=== PATIENT | female | born 1955 | race African-American/Black ===

== ENCOUNTER 2018-10-25 15:31 | Inpatient (IN) | payer MEDICARE, MEDICAID ==
--- NOTE | 2018-10-25 16:16 | ED Physician Chart ---
ED Chief Complaint/HPI - Patient Information Date Seen:: 10/25/18 Time Seen:: 15:45 Chief Complaint:: Fever History of Present Illness:: onset x 3 days of fever, cough, congestion, and dyspnea; no report of trauma, H/ As, S/T, neck pain, C/P, Abd. Pain, A/N/V/D/C, chills, or urinary s/s Allergies:: Allergies Allergy/AdvReac Type Severity Reaction Status Date / Time morphine Allergy Verified 09/27/18 15:58 tramadol Allergy Verified 09/27/18 15:58 Vitals:: Vital Signs - 8 hr 10/25/18 15:45 Temp 98.8 F HR 95 RR 28 BP 137/69 O2 Sat % 96 Historian:: Patient, EMS Review:: Nurse's Note Reviewed, Old Chart Reviewed, EMS run form Reviewed ED Review of Systems - Review of Systems General/Constitutional: Fever, No chills, No weight loss, No weakness, No diaphoresis, No edema, No loss of appetite Skin: No skin lesions, No rash, No bruising Head: No headache, No light-headedness Eyes: No loss of vision, No pain, No diplopia ENT: No earache, Nasal drainage, No sore throat, No tinnitus Neck: No neck pain, No swelling, No thyromegaly, No stiffness, No mass noted Cardio Vascular: No chest pain, No palpitations, No PND, No orthopnea, No edema Pulmonary: SOB, Cough, No sputum, Wheezing GI: No nausea, No vomiting, No diarrhea, No pain, No melena, No hematochezia, No constipation, No hematemesis G/U: No dysuria, No frequency, No hematuria, No nacturia French Binder: No vaginal discharge, No abnormal vaginal bleed, No contraction Musculoskeletal: No bone or joint pain, No back pain, No muscle pain Endocrine: No polyuria, No polydipsia Psychiatric: No prior psych history, No depression, No anxiety, No suicidal ideation, No homicidal ideation, No auditory hallucination, No visual hallucination Hematopoietic: No bruising, No lymphadenopathy Allergic/Immuno: No urticaria, No angioedema Neurological: No syncope, No focal symptoms, No weakness, No paresthesia, No headache, No seizure, No dizziness, No confusion, No vertigo ED Past Medical History - Past Medical History Obtainable: Yes Past Medical History: HTN, DM, CAD, CHF, Asthma/COPD, Dyslipidemia, ESRD Family History: HTN Social History: Non Smoker, No Alcohol, No Drug Use, Single, Care Facility Surgical History: None Psychiatricy History: None Medication: Reviewed ED Physical Exam - Physical Examination General/Constitutional: Awake, Well-developed, well-nourished, Alert, No distress, GCS 15, Non-toxic appearing, Ambulatory Head: Atraumatic Eyes: Lids, conjuctiva normal, PERRL, EOMI Skin: Nl inspection, No rash, No skin lesions, No ecchymosis, Well hydrated, No lymphadenopathy ENMT: External ears, nose nl, TM canals nl, Nasal exam nl, Lips, teeth, gums nl , Oropharynx nl, Tonsils nl Neck: Nontender, Full ROM w/o pain, No JVD, No nuchal rigidity, No bruit, No mass, No stridor Respiratory: Nl effort/Exclusion Other Respiratory comments:: Lungs: + Rales, Rhonchi, and Wheezes Cardio Vascular: RRR, No murmur, gallop, rubs, NL S1 S2, Carotid/Femoral/Distal pulses equal bilaterally GI: No tenderness/rebounding/guarding, No organomegaly, No hernia, Normal BS's, Nondistended, No mass/bruits, No McBurney tenderness, Rectum exam nl : No CVA tenderness Extremities: No tenderness or effusion, Full ROM, normal strength in all extremities, No edema, Normal digits & nails Neuro/Psych: Alert/oriented, DTR's symmetric, Normal sensory exam, Normal motor strength, Judgement/insight normal, Mood normal, Normal gait, No focal deficits Misc: Normal back, No paraspinal tenderness ED Labs/Radiology/EKG Results - Lab Results Comments:: Reviewed - Radiology Results Comments:: CXR: CM; CHF; + Infiltrate - EKG Interpretations EKG Time:: 16:29 Rate & Rhythm: 95; NSR Comments:: LAE; old ASMI; non-specific st-t changes ED Septic Shock - . Is Septic Shock (SBP<90, OR Lactate>4 mmol\L) present?: No - <6hrs of presentation: Vital Signs: Vital Signs - 8 hr 10/25/18 15:45 Temp 98.8 F HR 95 RR 28 BP 137/69 O2 Sat % 96 ED Reassessment (Disposition) - Reassessment Reassessment Condition:: Improved - Diagnosis Diagnosis:: Dyspnea; Hyperglycemia; DM; ESRD; Anemia; PNA; Sepsis; CHF; elevated D-Dimer; COPD - Aftercare/Follow up Instructions Aftercare/Follow-Up Instructions:: Counseled pt regarding lab results/diagnosis & need follow up, Counseled pt & family regarding lab results/diagnosis & need follow up - Patient Disposition Discharge/Transfer:: Acute Care w/in this hosp Accepting Physician:: Dr. Duque Time Called:: [phone] Time Responded:: 17:30 Admitted to:: Telemetry Spoke to:: Dr. Duque Admitting Medical Physician:: Dr. Duque Condition at Disposition:: Stable, Improved
[2018-10-25 16:25] LABS: HEMATOCRIT 25.5 % (41.0-60); HEMOGLOBIN 8.3 gm/dL (12-16); LYMPHOCYTE ABSOLUTE 0.5 Th/cmm (1.5-3.0); MEAN CELL VOLUME 83.6 fl (81-100); MEAN CORPUSCULAR HEMOGLOBIN 27.4 pg (27.0-31.0); MEAN CORPUSCULAR HGB CONC 32.7 pg (28.0-36.0); MEAN PLATELET VOLUME 7.6 fl; MONOCYTE ABSOLUTE 0.1 Th/cmm (0.3-1.0); NEUTROPHILE ABSOLUTE 8.7 Th/cmm (1.8-8.0); PLATELET COUNT 119 Th/cmm (150-400); RED BLOOD COUNT 3.05 Mil/cmm (3.80-5.10); RED CELL DISTRIBUTION WIDTH 21.8 % (11.5-20.0); WHITE BLOOD COUNT 9.3 Th/cmm (4.8-10.8)
[2018-10-25] MEDS ORDERED: Albuterol/Ipratropium Neb 3 ML AERS HHN ONE ×2 (16:32→17:04)
[2018-10-25 16:40] LABS: INR 1.2 (0.5-1.4); PROTHROMBIN TIME (TEST) 12.4 SECONDS (9.5-11.5)
[2018-10-25 16:42] LABS: ALB/GLOB RATIO 1.4 (1.0-1.8); ALBUMIN 4.1 gm/dL (3.7-5.3); ANION GAP 21.8 (7.0-16.0); BILIRUBIN,TOTAL 0.5 mg/dL (0.3-1.0); CALCIUM SERUM 9.5 mg/dL (8.6-10.3); CARBON DIOXIDE 22.9 mEq/L (21.0-31.0); GFR AFRICAN-AMERICAN 10.3 ml/min (>90); GFR NON AFRICAN-AMERICAN 8.5 ml/min; POTASSIUM SERUM 4.7 mEq/L (3.5-5.1)
[2018-10-25 16:53] LABS: CREATININE - SERUM 5.4 mg/dL (0.6-1.2)
[2018-10-25] MEDS ORDERED: Levofloxacin 500mg/100mL 500 MG/100 ML BAG IV ONE ×2 (17:52→18:16)
[2018-10-25] MEDS ORDERED: INSULIN HUMAN REGULAR 100 UNITS/ML UNIT IV ONE (17:52)
[2018-10-25] MEDS ORDERED: INSULIN HUMAN REGULAR 100 UNITS/ML UNIT ONE (18:16)
[2018-10-25 20:36] VITALS: BP 115/75
[2018-10-25] MEDS: HYDROmorphone 1 mg/mL 1mL Syr IVP PRN (22:01)
[2018-10-25 22:39] LABS: LYMPHOCYTE 7 % (20-50); MONOCYTE 3 % (2-10); NEUTROPHILS 90 % (40-80); PLATELET ESTIMATE ADEQUATE (NORMAL)
[2018-10-26] MEDS: HYDROmorphone 1 mg/mL 1mL Syr IVP PRN ×6 (02:20→21:50)
[2018-10-26 06:18] LABS: HEMOGLOBIN 8.4 gm/dL (12-16); MEAN CELL VOLUME 83.9 fl (81-100); MEAN CORPUSCULAR HGB CONC 32.2 pg (28.0-36.0); MEAN PLATELET VOLUME 7.8 fl; PLATELET COUNT 118 Th/cmm (150-400); RED BLOOD COUNT 3.11 Mil/cmm (3.80-5.10); RED CELL DISTRIBUTION WIDTH 21.8 % (11.5-20.0); WHITE BLOOD COUNT 8.9 Th/cmm (4.8-10.8)
[2018-10-26 06:31] LABS: ANION GAP 23.2 (7.0-16.0); CALCIUM SERUM 9.6 mg/dL (8.6-10.3); CARBON DIOXIDE 23.2 mEq/L (21.0-31.0); GFR AFRICAN-AMERICAN 9.3 ml/min (>90); GFR NON AFRICAN-AMERICAN 7.7 ml/min; POTASSIUM SERUM 4.4 mEq/L (3.5-5.1)
[2018-10-26 06:48] LABS: CREATININE - SERUM 5.9 mg/dL (0.6-1.2)
[2018-10-26 07:25] LABS: BAND NEUTROPHILE 0 % (0-10); EOSINOPHIL 0 % (0-5); LYMPHOCYTE 8 % (20-50); MONOCYTE 9 % (2-10); NEUTROPHILS 83 % (40-80)
[2018-10-26 07:26] LABS: BASOPHIL 0 % (0-3)
[2018-10-26 07:27] LABS: ANISOCYTOSIS 1+
[2018-10-26] MEDS ORDERED: Albuterol/Ipratropium Neb 3 ML AERS HHN PRN ×2 (07:52)
--- NOTE | 2018-10-26 08:30 | Diagnostic Imaging Report ---
Exam: Chest x-ray HISTORY: Chest pain COMPARISON [id number] Findings: Frontal exam of chest reviewed. The study demonstrates left subclavian catheter terminates in superior vena cava. The heart is enlarged. There is evidence of mild congestion. The costophrenic angles are clear. Bony thorax intact. No acute pulmonic infiltrates identified IMPRESSION: Cardiomegaly, mild congestion.
--- NOTE | 2018-10-26 09:44 | Consultation ---
Consult Note - Consult Note Service Date: 10/26/18 Consult Note: PHYSICIAN Consultation Note: Date of Admission: 10/25/18 Purpose of Consultation: Chief Complaint: History of Present Illness: Patient ANDRAE BAEZ was admitted to [facility] Telemetry with RENAL FAILURE, CHF. 63 yo F h/o ESRD 2 HTN nephrosclerosis on HD at [facility] apparently missed last HD session and was admitted to ED for evaluation of chest pain and shortness of breath. States that breathing is improved since admission with inhalers. ROS: + dyspnea, denies fevers, chills, nausea, vomiting, chest pain, abdominal pain, otherwise 14pt ROS negative except noted above Past Medical History: Allergies Allergy/AdvReac Type Severity Reaction Status Date / Time morphine Allergy Verified 09/27/18 15:58 tramadol Allergy Verified 09/27/18 15:58 Vital Signs Temp 98.9 F 10/26/18 07:54 Pulse 93 10/26/18 08:09 Resp 18 10/26/18 08:09 BP 144/76 10/26/18 07:54 Pulse Ox 95 10/26/18 08:09 Intake & Output 10/25/18 10/26/18 10/26/18 18:59 06:59 18:59 Intake Total 100 Balance 100 Weight (lbs) 72.121 kg 72.121 kg Intake: Intake, IV Amount 100 Other: Weight Source Estimated Laboratory Results - last 24 hr 10/25/18 10/25/18 10/25/18 16:20 16:20 16:20 WBC 9.3 RBC 3.05 L Hgb 8.3 L Hct 25.5 L MCV 83.6 MCH 27.4 MCHC Differential 32.7 RDW 21.8 H Plt Count 119 L MPV 7.6 Add Manual Diff YES Band Neutrophils % Neutrophils (Manual) 90 H Lymphocytes 7 L Monocytes 3 Eosinophils Basophils Platelet Estimate ADEQUATE Anisocytosis PT INR PTT (Actin FS) D-Dimer 1450 H Sodium 139 Potassium 4.7 Chloride 99 Carbon Dioxide 22.9 Anion Gap 21.8 H BUN 84 H* Creatinine 5.4 H* Est GFR ( Amer) 10.3 Est GFR (Non-Af Amer) 8.5 BUN/Creatinine Ratio 15.6 Glucose 361 H Whole Bld Lactic Acid Calcium 9.5 Total Bilirubin 0.5 AST 9 L ALT 8 Alkaline Phosphatase 123 H Creatine Kinase 24 L Troponin I B-Natriuretic Peptide 2620.0 H Total Protein 7.0 Albumin 4.1 Globulin 2.9 Albumin/Globulin Ratio 1.4 Triglycerides 57 Cholesterol 134 LDL Cholesterol Direct 39 L HDL Cholesterol 66 10/25/18 10/25/18 10/25/18 16:20 16:20 16:20 WBC RBC Hgb Hct MCV MCH MCHC Differential RDW Plt Count MPV Add Manual Diff Band Neutrophils % Neutrophils (Manual) Lymphocytes Monocytes Eosinophils Basophils Platelet Estimate Anisocytosis PT 12.4 H INR 1.20 PTT (Actin FS) 26.5 D-Dimer Sodium Potassium Chloride Carbon Dioxide Anion Gap BUN Creatinine Est GFR ( Amer) Est GFR (Non-Af Amer) BUN/Creatinine Ratio Glucose Whole Bld Lactic Acid 1.33 Calcium Total Bilirubin AST ALT Alkaline Phosphatase Creatine Kinase Troponin I 0.12 H* B-Natriuretic Peptide Total Protein Albumin Globulin Albumin/Globulin Ratio Triglycerides Cholesterol LDL Cholesterol Direct HDL Cholesterol 10/26/18 10/26/18 05:35 05:35 WBC 8.9 RBC 3.11 L Hgb 8.4 L Hct 26.0 L MCV 83.9 MCH 27.0 MCHC Differential 32.2 RDW 21.8 H Plt Count 118 L MPV 7.8 Add Manual Diff YES Band Neutrophils % 0 Neutrophils (Manual) 83 H Lymphocytes 8 L Monocytes 9 Eosinophils 0 Basophils 0 Platelet Estimate Anisocytosis 1+ PT INR PTT (Actin FS) D-Dimer Sodium 143 Potassium 4.4 Chloride 101 Carbon Dioxide 23.2 Anion Gap 23.2 H BUN 97 H* Creatinine 5.9 H* Est GFR ( Amer) 9.3 Est GFR (Non-Af Amer) 7.7 BUN/Creatinine Ratio 16.4 Glucose 291 H Whole Bld Lactic Acid Calcium 9.6 Total Bilirubin AST ALT Alkaline Phosphatase Creatine Kinase Troponin I B-Natriuretic Peptide Total Protein Albumin Globulin Albumin/Globulin Ratio Triglycerides Cholesterol LDL Cholesterol Direct HDL Cholesterol Home Medication Medication Instructions Recorded Type Acetaminophen [Tylenol] 325 mg PO Q4H PRN tab 10/01/18 Rx Bisacodyl [Dulcolax 10 Mg Supp] 10 mg RC DAILY PRN sup 10/01/18 Rx Carvedilol [Coreg] 25 mg PO BID tab 10/01/18 Rx Docusate Sodium [Colace] 100 mg PO BID cap 10/01/18 Rx Fleet Enema 135 ml RC PRN PRN btl 10/01/18 Rx Guaifenesin DM [Robitussin DM] 10 ml PO Q4HR PRN udc 10/01/18 Rx Ibuprofen [Motrin*] 600 mg PO Q4H PRN tab 10/01/18 Rx Loperamide [Imodium] 2 mg PO Q4HR PRN cap 10/01/18 Rx Losartan Potassium [Cozaar] 50 mg PO BID tab 10/01/18 Rx Magnesium Hydroxide [Milk of 30 ml PO HS PRN udc 10/01/18 Rx Magnesia] amLODIPine Besylate [Norvasc] 5 mg PO BID tab 10/01/18 Rx diphenhydrAMINE [Benadryl] 25 mg GT Q6HR PRN udc 10/01/18 Rx Albuterol/Ipratropium Neb [Duoneb 3 ml HHN Q2HRT PRN 10/25/18 History Neb] Albuterol/Ipratropium Neb [Duoneb 3 ml HHN Q4H PRN 10/25/18 History Neb] Balsam Diana/[place] Oil [Venelex] 1 appl TP Q12H 10/25/18 History Calcium Acetate [Phoslo] 1.334 mg PO TID 10/25/18 History Hydralazine HCl 100 mg PO Q12HR 10/25/18 History Minoxidil 2.5 mg PO BID 10/25/18 History Pantoprazole Sodium 40 mg PO DAILY 10/25/18 History Zolpidem Tartrate [Ambien] 10 mg PO HS PRN 10/25/18 History cloNIDine HCl [Catapres] 0.2 mg PO Q8HR PRN 10/25/18 History metroNIDAZOLE [Flagyl] 500 mg PO BID 10/25/18 History Current Medications Generic Name Dose Route Start Last Admin Trade Name Freq PRN Reason Stop Dose Admin Acetaminophen 325 mg 10/26/18 07:52 Tylenol PO 12/25/18 07:51 Q4H PRN Pain (Mild) Albuterol/Ipratropium 3 ml 10/26/18 07:52 Duoneb Neb N 12/25/18 07:51 Q2HRT PRN Wheezing Albuterol/Ipratropium 3 ml 10/26/18 07:52 Duoneb Neb N 12/25/18 07:51 Q4H PRN Wheezing Amlodipine Besylate 5 mg 10/26/18 09:00 Norvasc PO 12/25/18 08:59 BID HONEY Hydromorphone HCl 1 mg 10/25/18 21:43 10/26/18 06:29 Dilaudid IVP 12/24/18 21:42 1 mg Q4HR PRN Administration MODERATE TO SEVERE PAIN Albumin Human 12.5 gm in 50 mls @ 50 mls/hr 10/27/18 00:00 Albutein 25% IV 10/27/18 00:59 NOW ONE Review of Systems: A 12 point ROS was reviewed with the pertinent positive and negatives noted in the HPI. Social History Smoking Status Unknown if ever smoked Family Medical History Family Medical History Start: 10/25/18 19: 53 Freq: ONCE Status: Active Protocol: Document 10/25/18 22:16 [email or web address] (Rec: 10/25/18 22:17 [id number] ) Family Medical History Mother History Unknown Yes Physical Exam: General: WDWN woman, NAD, alert and oriented Cardio: regular rate, nl rhythm, no m/r/g. chest wall kat noted Respiratory: clear bilaterally Extremities: 1+ edema, old nonfunctional AVF Assessment: ESRD on HD - HD today for clearance and volume removal. May need additional session in AM HTN - BP controlled on HD Anemia 2 ESRD - H&H below range, no indication for transfusion. Continue ANTHONY as inpatient CHF - volume overloaded, UF today w/ HD Plan: As per above Signed, Usman Garcia [id number]
--- NOTE | 2018-10-26 15:38 | History & Physical ---
ADMIT DATE: 10/26/2018 DICTATING FOR: Dr. Duque. CHIEF COMPLAINT: Fever. HISTORY OF PRESENT ILLNESS: This is a 63-year-old female who is a [place] [facility] resident of [facility], admitted to the Telemetry Unit due to a 3-day history of off and on fever associated with cough and congestion. PAST MEDICAL HISTORY: Hypertension, diabetes, CAD, CHF, asthma, ESRD, on hemodialysis. FAMILY HISTORY: Noncontributory. SOCIAL HISTORY: The patient is a [place] [facility] resident. PAST SURGICAL HISTORY: On dialysis shunt. MEDICATIONS: See medication list. REVIEW OF SYSTEMS: GENERAL: Denies any fevers or chills. CARDIOVASCULAR: Denies chest pain. RESPIRATORY: Denies shortness of breath. GASTROINTESTINAL: Denies nausea, vomiting, abdominal pain. GENITOURINARY: Denies increased frequency. NEUROLOGIC: No headaches, seizures or syncope. All systems reviewed and are negative. PHYSICAL EXAMINATION: GENERAL: The patient is well developed, well nourished, in no apparent distress. VITAL SIGNS: Temperature 97.7, heart rate 78, blood pressure 119/51, respirations 18, O2 is 98%. HEENT: Head: Normocephalic, atraumatic. NECK: Supple. No masses. LUNGS: Clear bilaterally. HEART: Regular rate and rhythm. ABDOMEN: Soft, nontender. LABORATORY DATA: WBC 8.9, H and H 8.4 and 26.0, platelet of 118. Sodium 143, potassium 4.4, chloride 101, BUN 97, creatinine 5.9. ASSESSMENT: Acute febrile illness, acute renal failure, congestive heart failure, hypertension, diabetes. PLAN: The patient to be admitted to the telemetry unit. We will get Nephrology consultation. Monitor the patient's I and O's. We will continue to monitor this patient. JOB# [id number]
[2018-10-26] MEDS ORDERED: HYDROmorphone 2 mg/mL 1mL Vial ONE (18:14)
[2018-10-27] MEDS ORDERED: Albumin 25% 12.5gm/50mL 12.5 GM/50 ML BTL IV ONE
[2018-10-27] MEDS: HYDROmorphone 1 mg/mL 1mL Syr IVP PRN ×8 (00:59→23:45)
[2018-10-27 06:25] LABS: % BASOPHILS 0.5 % (0.0-2.0); % EOSINOPHILS 4.2 % (0.0-5.0); % LYMPHOCYTES 13.1 % (20.0-50.0); % MONOCYTES 9.7 % (2.0-10.0); % NEUTROPHILS 72.5 % (40.0-80.0); EOSINOPHILE ABSOLUTE 0.3 Th/cmm (0.1-0.4); HEMATOCRIT 27.9 % (41.0-60); HEMOGLOBIN 8.8 gm/dL (12-16); LYMPHOCYTE ABSOLUTE 0.8 Th/cmm (1.5-3.0); MEAN CELL VOLUME 84.1 fl (81-100); MEAN CORPUSCULAR HEMOGLOBIN 26.5 pg (27.0-31.0); MEAN CORPUSCULAR HGB CONC 31.5 pg (28.0-36.0); MONOCYTE ABSOLUTE 0.6 Th/cmm (0.3-1.0); NEUTROPHILE ABSOLUTE 4.5 Th/cmm (1.8-8.0); PLATELET COUNT 109 Th/cmm (150-400); RED BLOOD COUNT 3.32 Mil/cmm (3.80-5.10); RED CELL DISTRIBUTION WIDTH 21.6 % (11.5-20.0); WHITE BLOOD COUNT 6.2 Th/cmm (4.8-10.8)
--- NOTE | 2018-10-27 09:49 | General Progress Note ---
Subjective - Review of Systems Service Date: 10/27/18 Subjective: Agitated this AM, labs reviewed. For repeat HD today, not clear if pt received yesterday as well Objective - Results Result Diagrams: 10/27/18 05:50 10/26/18 05:35 Recent Labs: Laboratory Last Values WBC 6.2 Th/cmm (4.8-10.8) 10/27/18 05:50 RBC 3.32 Mil/cmm (3.80-5.10) L 10/27/18 05:50 Hgb 8.8 gm/dL (12-16) L 10/27/18 05:50 Hct 27.9 % (41.0-60) L 10/27/18 05:50 MCV 84.1 fl (81-100) 10/27/18 05:50 MCH 26.5 pg (27.0-31.0) L 10/27/18 05:50 MCHC Differential 31.5 pg (28.0-36.0) 10/27/18 05:50 RDW 21.6 % (11.5-20.0) H 10/27/18 05:50 Plt Count 109 Th/cmm (150-400) L 10/27/18 05:50 MPV 7.0 fl 10/27/18 05:50 Add Manual Diff YES 10/26/18 05:35 Neutrophils % 72.5 % (40.0-80.0) 10/27/18 05:50 Band Neutrophils % 0 % (0-10) 10/26/18 05:35 Lymphocytes % 13.1 % (20.0-50.0) L 10/27/18 05:50 Monocytes % 9.7 % (2.0-10.0) 10/27/18 05:50 Eosinophils % 4.2 % (0.0-5.0) 10/27/18 05:50 Basophils % 0.5 % (0.0-2.0) 10/27/18 05:50 Neutrophils (Manual) 83 % (40-80) H 10/26/18 05:35 Lymphocytes 8 % (20-50) L 10/26/18 05:35 Monocytes 9 % (2-10) 10/26/18 05:35 Eosinophils 0 % (0-5) 10/26/18 05:35 Basophils 0 % (0-3) 10/26/18 05:35 Platelet Estimate ADEQUATE (NORMAL) 10/25/18 16:20 Anisocytosis 1+ 10/26/18 05:35 PT 12.4 SECONDS (9.5-11.5) H 10/25/18 16:20 INR 1.20 (0.5-1.4) 10/25/18 16:20 PTT (Actin FS) 26.5 SECONDS (26.0-38.0) 10/25/18 16:20 D-Dimer 1450 ng/mL (100-400) H 10/25/18 16:20 Sodium 143 mEq/L (136-145) 10/26/18 05:35 Potassium 4.4 mEq/L (3.5-5.1) 10/26/18 05:35 Chloride 101 mEq/L (98-107) 10/26/18 05:35 Carbon Dioxide 23.2 mEq/L (21.0-31.0) 10/26/18 05:35 Anion Gap 23.2 (7.0-16.0) H 10/26/18 05:35 BUN 97 mg/dL (7-25) H* 10/26/18 05:35 Creatinine 5.9 mg/dL (0.6-1.2) H* 10/26/18 05:35 Est GFR ( Amer) 9.3 ml/min (>90) 10/26/18 05:35 Est GFR (Non-Af Amer) 7.7 ml/min 10/26/18 05:35 BUN/Creatinine Ratio 16.4 10/26/18 05:35 Glucose 291 mg/dL (70-105) H 10/26/18 05:35 Whole Bld Lactic Acid 1.33 mmol/L (0.60-1.99) 10/25/18 16:20 Calcium 9.6 mg/dL (8.6-10.3) 10/26/18 05:35 Total Bilirubin 0.5 mg/dL (0.3-1.0) 10/25/18 16:20 AST 9 U/L (13-39) L 10/25/18 16:20 ALT 8 U/L (7-52) 10/25/18 16:20 Alkaline Phosphatase 123 U/L (34-104) H 10/25/18 16:20 Creatine Kinase 24 U/L (30-223) L 10/25/18 16:20 Troponin I 0.12 ng/mL (0.01-0.05) H* 10/25/18 16:20 B-Natriuretic Peptide 2620.0 pg/mL (5.0-100.0) H 10/25/18 16:20 Total Protein 7.0 gm/dL (6.0-8.3) 10/25/18 16:20 Albumin 4.1 gm/dL (3.7-5.3) 10/25/18 16:20 Globulin 2.9 gm/dL 10/25/18 16:20 Albumin/Globulin Ratio 1.4 (1.0-1.8) 10/25/18 16:20 Triglycerides 57 mg/dL (<150) 10/25/18 16:20 Cholesterol 134 mg/dL (<200) 10/25/18 16:20 LDL Cholesterol Direct 39 mg/dL (75-193) L 10/25/18 16:20 HDL Cholesterol 66 mg/dL (23-92) 10/25/18 16:20 - Physical Exam Vitals and I&O: Vital Signs Temp 97.0 F 10/27/18 09:32 Pulse 97 10/27/18 09:32 Resp 18 10/27/18 09:32 BP 138/70 10/27/18 09:32 Pulse Ox 95 10/27/18 09:32 Intake & Output 10/26/18 10/27/18 10/27/18 18:59 06:59 18:59 Intake Total 50 200 Output Total 1 Balance 50 199 Weight (lbs) 0 g 85.729 kg Intake: Oral 50 200 Output: Urine 1 Other: # Voids 1 # Bowel Movements 0 Weight Source Estimated Bedscale Active Medications: Current Medications Acetaminophen (Tylenol) 325 mg PO Q4H PRN PRN Reason: Pain (Mild) Stop: 12/25/18 07:51 Last Admin: 10/27/18 00:00 Dose: 325 mg Albuterol/Ipratropium (Duoneb Neb) 3 ml HHN Q2HRT PRN PRN Reason: Wheezing Stop: 12/25/18 07:51 Albuterol/Ipratropium (Duoneb Neb) 3 ml HHN Q4H PRN PRN Reason: Wheezing Stop: 12/25/18 07:51 Amlodipine Besylate (Norvasc) 5 mg PO BID HONEY Stop: 12/25/18 08:59 Last Admin: 10/27/18 08:56 Dose: 5 mg Hydromorphone HCl (Dilaudid) 1 mg IVP Q3H PRN PRN Reason: MODERATE TO SEVERE PAIN (4-10) Stop: 12/25/18 17:33 Last Admin: 10/27/18 08:51 Dose: 1 mg Quetiapine Fumarate (Seroquel) 25 mg PO BID PRN; Protocol PRN Reason: Agitation Stop: 12/25/18 16:59 Last Admin: 10/27/18 08:55 Dose: 25 mg General: Alert HEENT: Atraumatic Cardiovascular: Regular rate Lungs: Clear to auscultation - Procedures Procedures: Procedures Procedure Code Date PERFORMANCE OF URINARY FILTRATION, <6 HRS/DAY [id number] 09/27/18 TRANSFUSE NONAUT RED BLOOD CELLS IN PERIPH VEIN, PERC [id number] 09/27/18 Assessment/Plan - Plan Plan: repeat HD today for clearance BP controlled on HD abx renal dosing H&H in range Nutritional Asmnt/Malnutr-PDOC - Dietary Evaluation Malnutrition Findings (Please click <Entered> for more info): Nutritional Asmnt/Malnutrition Start: 10/26/18 11: 42 Text: Status: Complete Freq: Protocol: Document 10/26/18 11:42 [email or web address] (Rec: 10/26/18 11:56 [email or web address]) Nutritional Asmnt/Malnutrition Patient General Information Nutritional Screening High Risk Consult Diagnosis renal failure, CHF Pertinent Medical Hx/Surgical Hx HTN, DM, CAD, CHF, asthma/COPD , dyslipidemia, ESRD Subjective Information Pt has ESRD on dialysis noted. Pt seen sitting in dayan-chair , awake but appeared weak and tired. Pt RN, pt has good appetite and ate 100% of breakfast in the morning. Consult received for admitting glucose 361. Not able to provide diabetic education at this time d/t pt weakness. Current Diet Order/ Nutrition Support renal Pertinent Medications reviewed Pertinent Labs 10/26 BUN 97, Cr 5.9, glucose 291 10/25 BUN 84, Cr 5.4, Glucose 361 Nutritional Hx/Data Height 1.63 m Height (Calculated Centimeters) 162.6 Current Weight (lbs) 72.121 kg Weight (Calculated Kilograms) 72.1 Weight (Calculated Grams) 10198.2 [place] Body Weight 120 Body Mass Index (BMI) 27.3 Weight Status Overweight GI Symptoms GI Symptoms None Last BM not indicated Difficult in: None Skin Integrity/Comment: skin tear to left knee, DRY FLAKKY SKIN yohana 13 Current %PO Good (75-100%) Estimated Nutritional Goals Calories/Kcals/Kg 30-35 IBW 59kg Kcals Calculated 2926-4083 Protein g/k.2-1.4 Protein Calculated 71-82 Fluid: ml per MD Nutritional Problem 1. Problem Problem altered nutrition related labs Etiology renal dysfunction and hyperglycemia Signs/Symptoms: BUN 84-97, Cr 5.4-5.9, glucose 291-361 Malnutrition Alert Is there a minimum of two criteria No selected? Query Text:Check all the applicable criteria. A minimum of two criteria are recommended for diagnosis of either severe or non-severe malnutrition. Malnutrition Related to Morbid Obesity Malnutrition related to morbid obesity No Intervention/Recommendation Comments 1. Continue with renal diet as ordered, adjust protein level to 80g for hemodialysis. Recommend adding CCHO-60gm diet for optimal glycemic control. 2. Monitor PO intake, wt, labs and skin integrity 3. F/U as high risk in 2-3 days Expected Outcomes/Goals Expected Outcomes/Goals 1. PO intake to meet at least 75% of nutritional needs. 2. Wt stability, skin to remain intact, labs to approach WNL.
[2018-10-27 11:12] LABS: ANION GAP 22.3 (7.0-16.0); POTASSIUM SERUM 4.3 mEq/L (3.5-5.1)
[2018-10-27 11:14] LABS: GFR AFRICAN-AMERICAN 11.5 ml/min (>90); GFR NON AFRICAN-AMERICAN 9.5 ml/min
[2018-10-27 11:16] LABS: CREATININE - SERUM 4.9 mg/dL (0.6-1.2)
--- NOTE | 2018-10-27 12:44 | Consultation ---
DATE OF CONSULTATION: 10/26/2018 HISTORY OF PRESENT ILLNESS: A 63-year-old female with possible history of bipolar disorder, coming in from a jail, claiming that she is coming in from home, yelling, screaming, stating that she is in a lot of pain, asking for opiates, pain medications. She wants them more frequently. She is getting it already every 4 hours, history of fever, cough and congestion. She really does not know why she is in the hospital. She states the year is 2017. She states the month is 2018. When I try to get the month out of her, she states "September." She does not know the day of the week. She knows she is in the hospital as she is noting difficulty with sleep or appetite, noting back pain, side pain. PAST PSYCHIATRIC HISTORY: Unclear. Dr. Duque noting a possible history of bipolar disorder, but the patient denies. No suicide history per the patient. SOCIAL HISTORY: The patient was born in [place], , has 5 children, states that she lives with her daughter. MEDICATIONS: Noted. MENTAL STATUS EXAMINATION: Stated age. Fair eye contact. Speech childlike. Mood not good. Affect upset. Thought processes were grossly linear, but somewhat disoriented. No overt SI or HI. No overt psychotic symptoms. Insight and judgment diminished. Poor impulse control. PROVISIONAL DIAGNOSIS: Anxiety, unspecified; mood, unspecified; rule out bipolar disorder. MEDICAL: Please see full H and P. RECOMMENDATIONS AND PLAN: The patient may benefit from p.r.n. dosing of Ativan or probable dosing of Seroquel. We will try to increase collateral approach conservatively with p.r.n. dosing of Seroquel. [facility]# [id number]
--- NOTE | 2018-10-27 21:46 | Progress Notes ---
DATE: 10/27/2018 SUBJECTIVE: The patient is still pain seeking, screaming, stating that she is giving Dilaudid, she will stop screaming. She is pretty manipulative, fairly well oriented. She did sleep last night, but with magazine editor awakenings continuing to ask for 0.5 mg of Dilaudid every 4 hours. She is actually getting 1 mg every 3 hours. The patient guarded when I asked if she has history of mental illnesses such as bipolar. MENTAL STATUS EXAMINATION: Stated age. Fair eye contact. Speech within normal limits. Mood "fine." Giving some Dilaudid. Affect constricted. Thought processes were linear. No SI, no HI, no overt psychotic symptoms. PROVISIONAL DIAGNOSES: Opiate dependence, rule out bipolar. MEDICAL: Please see full H and P. PLAN: Continue p.r.n. dosing of Seroquel. JOB# [id number]
--- NOTE | 2018-10-27 22:39 | Internal Medicine Prog Note ---
Internal Medicine Subjective - Subjective Service Date: 10/27/18 Patient is:: awake, agitated, confused Per staff patient has:: tolerating meds Internal Medicine Objective - Results Result Diagrams: 10/27/18 05:50 10/27/18 05:50 Recent Labs: Laboratory Last Values WBC 6.2 Th/cmm (4.8-10.8) 10/27/18 05:50 RBC 3.32 Mil/cmm (3.80-5.10) L 10/27/18 05:50 Hgb 8.8 gm/dL (12-16) L 10/27/18 05:50 Hct 27.9 % (41.0-60) L 10/27/18 05:50 MCV 84.1 fl (81-100) 10/27/18 05:50 MCH 26.5 pg (27.0-31.0) L 10/27/18 05:50 MCHC Differential 31.5 pg (28.0-36.0) 10/27/18 05:50 RDW 21.6 % (11.5-20.0) H 10/27/18 05:50 Plt Count 109 Th/cmm (150-400) L 10/27/18 05:50 MPV 7.0 fl 10/27/18 05:50 Add Manual Diff YES 10/26/18 05:35 Neutrophils % 72.5 % (40.0-80.0) 10/27/18 05:50 Band Neutrophils % 0 % (0-10) 10/26/18 05:35 Lymphocytes % 13.1 % (20.0-50.0) L 10/27/18 05:50 Monocytes % 9.7 % (2.0-10.0) 10/27/18 05:50 Eosinophils % 4.2 % (0.0-5.0) 10/27/18 05:50 Basophils % 0.5 % (0.0-2.0) 10/27/18 05:50 Neutrophils (Manual) 83 % (40-80) H 10/26/18 05:35 Lymphocytes 8 % (20-50) L 10/26/18 05:35 Monocytes 9 % (2-10) 10/26/18 05:35 Eosinophils 0 % (0-5) 10/26/18 05:35 Basophils 0 % (0-3) 10/26/18 05:35 Platelet Estimate ADEQUATE (NORMAL) 10/25/18 16:20 Anisocytosis 1+ 10/26/18 05:35 PT 12.4 SECONDS (9.5-11.5) H 10/25/18 16:20 INR 1.20 (0.5-1.4) 10/25/18 16:20 PTT (Actin FS) 26.5 SECONDS (26.0-38.0) 10/25/18 16:20 D-Dimer 1450 ng/mL (100-400) H 10/25/18 16:20 Sodium 141 mEq/L (136-145) 10/27/18 05:50 Potassium 4.3 mEq/L (3.5-5.1) 10/27/18 05:50 Chloride 102 mEq/L (98-107) 10/27/18 05:50 Carbon Dioxide 21.0 mEq/L (21.0-31.0) 10/27/18 05:50 Anion Gap 22.3 (7.0-16.0) H 10/27/18 05:50 BUN 73 mg/dL (7-25) H 10/27/18 05:50 Creatinine 4.9 mg/dL (0.6-1.2) H* 10/27/18 05:50 Est GFR ( Amer) 11.5 ml/min (>90) 10/27/18 05:50 Est GFR (Non-Af Amer) 9.5 ml/min 10/27/18 05:50 BUN/Creatinine Ratio 14.9 10/27/18 05:50 Glucose 77 mg/dL (70-105) 10/27/18 05:50 Whole Bld Lactic Acid 1.33 mmol/L (0.60-1.99) 10/25/18 16:20 Calcium 9.0 mg/dL (8.6-10.3) 10/27/18 05:50 Total Bilirubin 0.5 mg/dL (0.3-1.0) 10/25/18 16:20 AST 9 U/L (13-39) L 10/25/18 16:20 ALT 8 U/L (7-52) 10/25/18 16:20 Alkaline Phosphatase 123 U/L (34-104) H 10/25/18 16:20 Creatine Kinase 24 U/L (30-223) L 10/25/18 16:20 Troponin I 0.12 ng/mL (0.01-0.05) H* 10/25/18 16:20 B-Natriuretic Peptide 2620.0 pg/mL (5.0-100.0) H 10/25/18 16:20 Total Protein 7.0 gm/dL (6.0-8.3) 10/25/18 16:20 Albumin 4.1 gm/dL (3.7-5.3) 10/25/18 16:20 Globulin 2.9 gm/dL 10/25/18 16:20 Albumin/Globulin Ratio 1.4 (1.0-1.8) 10/25/18 16:20 Triglycerides 57 mg/dL (<150) 10/25/18 16:20 Cholesterol 134 mg/dL (<200) 10/25/18 16:20 LDL Cholesterol Direct 39 mg/dL (75-193) L 10/25/18 16:20 HDL Cholesterol 66 mg/dL (23-92) 10/25/18 16:20 - Physical Exam Vitals and I&O: Vital Signs Temp 99.1 F 10/27/18 20:00 Pulse 95 10/27/18 20:00 Resp 18 10/27/18 20:00 BP 158/79 10/27/18 20:00 Pulse Ox 99 10/27/18 20:00 Intake & Output 10/27/18 10/27/18 10/28/18 06:59 18:59 06:59 Intake Total 200 600 Output Total 1 Balance 199 600 Weight (lbs) 85.729 kg 85.729 kg Intake: Oral 200 600 Output: Urine 1 Other: # Voids 1 3 # Bowel Movements 0 2 Weight Source Bedscale Bedscale Active Medications: Current Medications Acetaminophen (Tylenol) 325 mg PO Q4H PRN PRN Reason: Pain (Mild) Stop: 12/25/18 07:51 Last Admin: 10/27/18 00:00 Dose: 325 mg Albuterol/Ipratropium (Duoneb Neb) 3 ml HHN Q2HRT PRN PRN Reason: Wheezing Stop: 12/25/18 07:51 Albuterol/Ipratropium (Duoneb Neb) 3 ml HHN Q4H PRN PRN Reason: Wheezing Stop: 12/25/18 07:51 Amlodipine Besylate (Norvasc) 5 mg PO BID HONEY Stop: 12/25/18 08:59 Last Admin: 10/27/18 16:39 Dose: 5 mg Hydromorphone HCl (Dilaudid) 1 mg IVP Q3H PRN PRN Reason: MODERATE TO SEVERE PAIN (4-10) Stop: 12/25/18 17:33 Last Admin: 10/27/18 20:48 Dose: 1 mg Quetiapine Fumarate (Seroquel) 25 mg PO BID PRN; Protocol PRN Reason: Agitation Stop: 12/25/18 16:59 Last Admin: 10/27/18 08:55 Dose: 25 mg General: appears older HEENT: NC/AT, PERRLA Neck: Supple Cardiovascular: RRR, Normal S1, Normal S2 Abdomen: non-tender, non-distended - Procedures Procedures: Procedures Procedure Code Date PERFORMANCE OF URINARY FILTRATION, <6 HRS/DAY [id number] 09/27/18 TRANSFUSE NONAUT RED BLOOD CELLS IN PERIPH VEIN, PERC 44306E9 09/27/18 Internal Medicine Assmt/Plan - Assessment Assessment: acute febrile illness chf dm htn - Plan Plan: ivantibiotic monitor temperature as per order sheet Nutritional Asmnt/Malnutr-PDOC - Dietary Evaluation Malnutrition Findings (Please click <Entered> for more info): Nutritional Asmnt/Malnutrition Start: 10/26/18 11: 42 Text: Status: Complete Freq: Protocol: Document 10/26/18 11:42 LCHENG (Rec: 10/26/18 11:56 [email or web address]) Nutritional Asmnt/Malnutrition Patient General Information Nutritional Screening High Risk Consult Diagnosis renal failure, CHF Pertinent Medical Hx/Surgical Hx HTN, DM, CAD, CHF, asthma/COPD , dyslipidemia, ESRD Subjective Information Pt has ESRD on dialysis noted. Pt seen sitting in dayan-chair , awake but appeared weak and tired. Pt RN, pt has good appetite and ate 100% of breakfast in the morning. Consult received for admitting glucose 361. Not able to provide diabetic education at this time d/t pt weakness. Current Diet Order/ Nutrition Support renal Pertinent Medications reviewed Pertinent Labs 10/26 BUN 97, Cr 5.9, glucose 291 10/25 BUN 84, Cr 5.4, Glucose 361 Nutritional Hx/Data Height 1.63 m Height (Calculated Centimeters) 162.6 Current Weight (lbs) 72.121 kg Weight (Calculated Kilograms) 72.1 Weight (Calculated Grams) 86280.2 [place] Body Weight 120 Body Mass Index (BMI) 27.3 Weight Status Overweight GI Symptoms GI Symptoms None Last BM not indicated Difficult in: None Skin Integrity/Comment: skin tear to left knee, DRY FLAKKY SKIN yohana 13 Current %PO Good (75-100%) Estimated Nutritional Goals Calories/Kcals/Kg 30-35 IBW 59kg Kcals Calculated 7353-0226 Protein g/k.2-1.4 Protein Calculated 71-82 Fluid: ml per MD Nutritional Problem 1. Problem Problem altered nutrition related labs Etiology renal dysfunction and hyperglycemia Signs/Symptoms: BUN 84-97, Cr 5.4-5.9, glucose 291-361 Malnutrition Alert Is there a minimum of two criteria No selected? Query Text:Check all the applicable criteria. A minimum of two criteria are recommended for diagnosis of either severe or non-severe malnutrition. Malnutrition Related to Morbid Obesity Malnutrition related to morbid obesity No Intervention/Recommendation Comments 1. Continue with renal diet as ordered, adjust protein level to 80g for hemodialysis. Recommend adding CCHO-60gm diet for optimal glycemic control. 2. Monitor PO intake, wt, labs and skin integrity 3. F/U as high risk in 2-3 days Expected Outcomes/Goals Expected Outcomes/Goals 1. PO intake to meet at least 75% of nutritional needs. 2. Wt stability, skin to remain intact, labs to approach WNL.
[2018-10-28] MEDS: HYDROmorphone 1 mg/mL 1mL Syr IVP PRN ×6 (03:16→23:37)
--- NOTE | 2018-10-28 09:39 | General Progress Note ---
Subjective - Review of Systems Service Date: 10/28/18 Subjective: Agitated this AM, labs reviewed Objective - Results Result Diagrams: 10/27/18 05:50 10/27/18 05:50 Recent Labs: Laboratory Last Values WBC 6.2 Th/cmm (4.8-10.8) 10/27/18 05:50 RBC 3.32 Mil/cmm (3.80-5.10) L 10/27/18 05:50 Hgb 8.8 gm/dL (12-16) L 10/27/18 05:50 Hct 27.9 % (41.0-60) L 10/27/18 05:50 MCV 84.1 fl (81-100) 10/27/18 05:50 MCH 26.5 pg (27.0-31.0) L 10/27/18 05:50 MCHC Differential 31.5 pg (28.0-36.0) 10/27/18 05:50 RDW 21.6 % (11.5-20.0) H 10/27/18 05:50 Plt Count 109 Th/cmm (150-400) L 10/27/18 05:50 MPV 7.0 fl 10/27/18 05:50 Add Manual Diff YES 10/26/18 05:35 Neutrophils % 72.5 % (40.0-80.0) 10/27/18 05:50 Band Neutrophils % 0 % (0-10) 10/26/18 05:35 Lymphocytes % 13.1 % (20.0-50.0) L 10/27/18 05:50 Monocytes % 9.7 % (2.0-10.0) 10/27/18 05:50 Eosinophils % 4.2 % (0.0-5.0) 10/27/18 05:50 Basophils % 0.5 % (0.0-2.0) 10/27/18 05:50 Neutrophils (Manual) 83 % (40-80) H 10/26/18 05:35 Lymphocytes 8 % (20-50) L 10/26/18 05:35 Monocytes 9 % (2-10) 10/26/18 05:35 Eosinophils 0 % (0-5) 10/26/18 05:35 Basophils 0 % (0-3) 10/26/18 05:35 Platelet Estimate ADEQUATE (NORMAL) 10/25/18 16:20 Anisocytosis 1+ 10/26/18 05:35 PT 12.4 SECONDS (9.5-11.5) H 10/25/18 16:20 INR 1.20 (0.5-1.4) 10/25/18 16:20 PTT (Actin FS) 26.5 SECONDS (26.0-38.0) 10/25/18 16:20 D-Dimer 1450 ng/mL (100-400) H 10/25/18 16:20 Sodium 141 mEq/L (136-145) 10/27/18 05:50 Potassium 4.3 mEq/L (3.5-5.1) 10/27/18 05:50 Chloride 102 mEq/L (98-107) 10/27/18 05:50 Carbon Dioxide 21.0 mEq/L (21.0-31.0) 10/27/18 05:50 Anion Gap 22.3 (7.0-16.0) H 10/27/18 05:50 BUN 73 mg/dL (7-25) H 10/27/18 05:50 Creatinine 4.9 mg/dL (0.6-1.2) H* 10/27/18 05:50 Est GFR ( Amer) 11.5 ml/min (>90) 10/27/18 05:50 Est GFR (Non-Af Amer) 9.5 ml/min 10/27/18 05:50 BUN/Creatinine Ratio 14.9 10/27/18 05:50 Glucose 77 mg/dL (70-105) 10/27/18 05:50 Whole Bld Lactic Acid 1.33 mmol/L (0.60-1.99) 10/25/18 16:20 Calcium 9.0 mg/dL (8.6-10.3) 10/27/18 05:50 Total Bilirubin 0.5 mg/dL (0.3-1.0) 10/25/18 16:20 AST 9 U/L (13-39) L 10/25/18 16:20 ALT 8 U/L (7-52) 10/25/18 16:20 Alkaline Phosphatase 123 U/L (34-104) H 10/25/18 16:20 Creatine Kinase 24 U/L (30-223) L 10/25/18 16:20 Troponin I 0.12 ng/mL (0.01-0.05) H* 10/25/18 16:20 B-Natriuretic Peptide 2620.0 pg/mL (5.0-100.0) H 10/25/18 16:20 Total Protein 7.0 gm/dL (6.0-8.3) 10/25/18 16:20 Albumin 4.1 gm/dL (3.7-5.3) 10/25/18 16:20 Globulin 2.9 gm/dL 10/25/18 16:20 Albumin/Globulin Ratio 1.4 (1.0-1.8) 10/25/18 16:20 Triglycerides 57 mg/dL (<150) 10/25/18 16:20 Cholesterol 134 mg/dL (<200) 10/25/18 16:20 LDL Cholesterol Direct 39 mg/dL (75-193) L 10/25/18 16:20 HDL Cholesterol 66 mg/dL (23-92) 10/25/18 16:20 - Physical Exam Vitals and I&O: Vital Signs Temp 98.9 F 10/28/18 09:01 Pulse 104 10/28/18 09:01 Resp 19 10/28/18 09:01 BP 150/75 10/28/18 09:01 Pulse Ox 98 10/28/18 09:01 Intake & Output 10/27/18 10/28/18 10/28/18 18:59 06:59 18:59 Intake Total 600 200 Balance 600 200 Weight (lbs) 85.729 kg 85.729 kg Intake: Oral 600 200 Other: # Voids 3 0 # Bowel Movements 2 0 Weight Source Bedscale Bedscale Active Medications: Current Medications Acetaminophen (Tylenol) 325 mg PO Q4H PRN PRN Reason: Pain (Mild) Stop: 12/25/18 07:51 Last Admin: 10/27/18 00:00 Dose: 325 mg Albuterol/Ipratropium (Duoneb Neb) 3 ml HHN Q2HRT PRN PRN Reason: Wheezing Stop: 12/25/18 07:51 Albuterol/Ipratropium (Duoneb Neb) 3 ml HHN Q4H PRN PRN Reason: Wheezing Stop: 12/25/18 07:51 Amlodipine Besylate (Norvasc) 5 mg PO BID HONEY Stop: 12/25/18 08:59 Last Admin: 10/27/18 16:39 Dose: 5 mg Hydromorphone HCl (Dilaudid) 1 mg IVP Q3H PRN PRN Reason: MODERATE TO SEVERE PAIN (4-10) Stop: 12/25/18 17:33 Last Admin: 10/28/18 09:06 Dose: 1 mg Quetiapine Fumarate (Seroquel) 25 mg PO BID PRN; Protocol PRN Reason: Agitation Stop: 12/25/18 16:59 Last Admin: 10/28/18 09:07 Dose: 25 mg General: Alert HEENT: Atraumatic Cardiovascular: Regular rate Lungs: Clear to auscultation - Procedures Procedures: Procedures Procedure Code Date PERFORMANCE OF URINARY FILTRATION, <6 HRS/DAY [id number] 09/27/18 TRANSFUSE NONAUT RED BLOOD CELLS IN PERIPH VEIN, PERC 09002Q3 09/27/18 Assessment/Plan - Plan Plan: HD on TTS schedule BP controlled on HD abx renal dosing H&H in range Nutritional Asmnt/Malnutr-PDOC - Dietary Evaluation Malnutrition Findings (Please click <Entered> for more info): Nutritional Asmnt/Malnutrition Start: 10/26/18 11: 42 Text: Status: Complete Freq: Protocol: Document 10/26/18 11:42 SOHAIL (Rec: 10/26/18 11:56 SOHAIL [email or web address]) Nutritional Asmnt/Malnutrition Patient General Information Nutritional Screening High Risk Consult Diagnosis renal failure, CHF Pertinent Medical Hx/Surgical Hx HTN, DM, CAD, CHF, asthma/COPD , dyslipidemia, ESRD Subjective Information Pt has ESRD on dialysis noted. Pt seen sitting in dayan-chair , awake but appeared weak and tired. Pt RN, pt has good appetite and ate 100% of breakfast in the morning. Consult received for admitting glucose 361. Not able to provide diabetic education at this time d/t pt weakness. Current Diet Order/ Nutrition Support renal Pertinent Medications reviewed Pertinent Labs 10/26 BUN 97, Cr 5.9, glucose 291 10/25 BUN 84, Cr 5.4, Glucose 361 Nutritional Hx/Data Height 1.63 m Height (Calculated Centimeters) 162.6 Current Weight (lbs) 72.121 kg Weight (Calculated Kilograms) 72.1 Weight (Calculated Grams) 44557.2 [place] Body Weight 120 Body Mass Index (BMI) 27.3 Weight Status Overweight GI Symptoms GI Symptoms None Last BM not indicated Difficult in: None Skin Integrity/Comment: skin tear to left knee, DRY FLAKKY SKIN yohana 13 Current %PO Good (75-100%) Estimated Nutritional Goals Calories/Kcals/Kg 30-35 IBW 59kg Kcals Calculated 9025-1799 Protein g/k.2-1.4 Protein Calculated 71-82 Fluid: ml per MD Nutritional Problem 1. Problem Problem altered nutrition related labs Etiology renal dysfunction and hyperglycemia Signs/Symptoms: BUN 84-97, Cr 5.4-5.9, glucose 291-361 Malnutrition Alert Is there a minimum of two criteria No selected? Query Text:Check all the applicable criteria. A minimum of two criteria are recommended for diagnosis of either severe or non-severe malnutrition. Malnutrition Related to Morbid Obesity Malnutrition related to morbid obesity No Intervention/Recommendation Comments 1. Continue with renal diet as ordered, adjust protein level to 80g for hemodialysis. Recommend adding CCHO-60gm diet for optimal glycemic control. 2. Monitor PO intake, wt, labs and skin integrity 3. F/U as high risk in 2-3 days Expected Outcomes/Goals Expected Outcomes/Goals 1. PO intake to meet at least 75% of nutritional needs. 2. Wt stability, skin to remain intact, labs to approach WNL.
[2018-10-28] MEDS: Diltiazem 5 mg/mL 5mL Vial IVP PRN (14:20)
--- NOTE | 2018-10-28 17:29 | Internal Medicine Prog Note ---
Internal Medicine Subjective - Subjective Service Date: 10/28/18 Patient seen and examined:: with staff, chart reviewed Patient is:: awake, agitated, confused Patient Complaints of:: congestion, cough Per staff patient has:: no adverse event, no episodes of fall, tolerating meds Internal Medicine Objective - Results Result Diagrams: 10/27/18 05:50 10/27/18 05:50 Recent Labs: Laboratory Last Values WBC 6.2 Th/cmm (4.8-10.8) 10/27/18 05:50 RBC 3.32 Mil/cmm (3.80-5.10) L 10/27/18 05:50 Hgb 8.8 gm/dL (12-16) L 10/27/18 05:50 Hct 27.9 % (41.0-60) L 10/27/18 05:50 MCV 84.1 fl (81-100) 10/27/18 05:50 MCH 26.5 pg (27.0-31.0) L 10/27/18 05:50 MCHC Differential 31.5 pg (28.0-36.0) 10/27/18 05:50 RDW 21.6 % (11.5-20.0) H 10/27/18 05:50 Plt Count 109 Th/cmm (150-400) L 10/27/18 05:50 MPV 7.0 fl 10/27/18 05:50 Add Manual Diff YES 10/26/18 05:35 Neutrophils % 72.5 % (40.0-80.0) 10/27/18 05:50 Band Neutrophils % 0 % (0-10) 10/26/18 05:35 Lymphocytes % 13.1 % (20.0-50.0) L 10/27/18 05:50 Monocytes % 9.7 % (2.0-10.0) 10/27/18 05:50 Eosinophils % 4.2 % (0.0-5.0) 10/27/18 05:50 Basophils % 0.5 % (0.0-2.0) 10/27/18 05:50 Neutrophils (Manual) 83 % (40-80) H 10/26/18 05:35 Lymphocytes 8 % (20-50) L 10/26/18 05:35 Monocytes 9 % (2-10) 10/26/18 05:35 Eosinophils 0 % (0-5) 10/26/18 05:35 Basophils 0 % (0-3) 10/26/18 05:35 Platelet Estimate ADEQUATE (NORMAL) 10/25/18 16:20 Anisocytosis 1+ 10/26/18 05:35 PT 12.4 SECONDS (9.5-11.5) H 10/25/18 16:20 INR 1.20 (0.5-1.4) 10/25/18 16:20 PTT (Actin FS) 26.5 SECONDS (26.0-38.0) 10/25/18 16:20 D-Dimer 1450 ng/mL (100-400) H 10/25/18 16:20 Sodium 141 mEq/L (136-145) 10/27/18 05:50 Potassium 4.3 mEq/L (3.5-5.1) 10/27/18 05:50 Chloride 102 mEq/L (98-107) 10/27/18 05:50 Carbon Dioxide 21.0 mEq/L (21.0-31.0) 10/27/18 05:50 Anion Gap 22.3 (7.0-16.0) H 10/27/18 05:50 BUN 73 mg/dL (7-25) H 10/27/18 05:50 Creatinine 4.9 mg/dL (0.6-1.2) H* 10/27/18 05:50 Est GFR ( Amer) 11.5 ml/min (>90) 10/27/18 05:50 Est GFR (Non-Af Amer) 9.5 ml/min 10/27/18 05:50 BUN/Creatinine Ratio 14.9 10/27/18 05:50 Glucose 77 mg/dL (70-105) 10/27/18 05:50 Whole Bld Lactic Acid 1.33 mmol/L (0.60-1.99) 10/25/18 16:20 Calcium 9.0 mg/dL (8.6-10.3) 10/27/18 05:50 Total Bilirubin 0.5 mg/dL (0.3-1.0) 10/25/18 16:20 AST 9 U/L (13-39) L 10/25/18 16:20 ALT 8 U/L (7-52) 10/25/18 16:20 Alkaline Phosphatase 123 U/L (34-104) H 10/25/18 16:20 Creatine Kinase 24 U/L (30-223) L 10/25/18 16:20 Troponin I 0.12 ng/mL (0.01-0.05) H* 10/25/18 16:20 B-Natriuretic Peptide 2620.0 pg/mL (5.0-100.0) H 10/25/18 16:20 Total Protein 7.0 gm/dL (6.0-8.3) 10/25/18 16:20 Albumin 4.1 gm/dL (3.7-5.3) 10/25/18 16:20 Globulin 2.9 gm/dL 10/25/18 16:20 Albumin/Globulin Ratio 1.4 (1.0-1.8) 10/25/18 16:20 Triglycerides 57 mg/dL (<150) 10/25/18 16:20 Cholesterol 134 mg/dL (<200) 10/25/18 16:20 LDL Cholesterol Direct 39 mg/dL (75-193) L 10/25/18 16:20 HDL Cholesterol 66 mg/dL (23-92) 10/25/18 16:20 - Physical Exam Vitals and I&O: Vital Signs Temp 97.0 F 10/28/18 16:18 Pulse 98 10/28/18 16:42 Resp 18 10/28/18 16:18 BP 120/78 10/28/18 16:42 Pulse Ox 98 10/28/18 16:18 Intake & Output 10/27/18 10/28/18 10/28/18 18:59 06:59 18:59 Intake Total 600 200 Output Total 2200 Balance 600 200 -2200 Weight (lbs) 85.729 kg 85.729 kg 77.111 kg Intake: Oral 600 200 Output: Hemodialysis 2200 Other: # Voids 3 0 # Bowel Movements 2 0 Weight Source Bedscale Bedscale Bedscale Active Medications: Current Medications Acetaminophen (Tylenol) 325 mg PO Q4H PRN PRN Reason: Pain (Mild) Stop: 12/25/18 07:51 Last Admin: 10/27/18 00:00 Dose: 325 mg Albuterol/Ipratropium (Duoneb Neb) 3 ml HHN Q2HRT PRN PRN Reason: Wheezing Stop: 12/25/18 07:51 Albuterol/Ipratropium (Duoneb Neb) 3 ml HHN Q4H PRN PRN Reason: Wheezing Stop: 12/25/18 07:51 Carvedilol (Coreg) 12.5 mg PO BID HONEY Stop: 12/27/18 14:14 Last Admin: 10/28/18 16:42 Dose: 12.5 mg Diltiazem HCl (Cardizem) 20 mg IVP Q4H PRN PRN Reason: HR Greater than 130 per min Stop: 12/27/18 14:07 Last Admin: 10/28/18 14:20 Dose: 20 mg Diltiazem HCl (Cardizem) 60 mg PO Q6HR HONEY Stop: 12/27/18 17:59 Hydromorphone HCl (Dilaudid) 1 mg IVP Q3H PRN PRN Reason: MODERATE TO SEVERE PAIN (4-10) Stop: 12/25/18 17:33 Last Admin: 10/28/18 09:06 Dose: 1 mg Quetiapine Fumarate (Seroquel) 25 mg PO BID PRN; Protocol PRN Reason: Agitation Stop: 12/25/18 16:59 Last Admin: 10/28/18 09:07 Dose: 25 mg Physical Exam: Patient's blood pressure is stable, no new complaints reported. General: appears older HEENT: NC/AT, PERRLA Neck: Supple Lungs: congested, other (cough) Cardiovascular: RRR, Normal S1, Normal S2 Abdomen: non-tender, non-distended Extremities: clear Neurological: no change, alert - Procedures Procedures: Procedures Procedure Code Date PERFORMANCE OF URINARY FILTRATION, <6 HRS/DAY [id number] 09/27/18 TRANSFUSE NONAUT RED BLOOD CELLS IN PERIPH VEIN, PERC [id number] 09/27/18 Internal Medicine Assmt/Plan - Assessment Assessment: acute febrile illness cough and congestion asthma esrd, on dialysis chf cad dm htn - Plan Plan: iv antibiotic monitor vitals, fever control as per order sheet Nutritional Asmnt/Malnutr-PDOC - Dietary Evaluation Malnutrition Findings (Please click <Entered> for more info): Nutritional Asmnt/Malnutrition Start: 10/26/18 11: 42 Text: Status: Complete Freq: Protocol: Document 10/26/18 11:42 LCHENG (Rec: 10/26/18 11:56 SOHAIL [email or web address]) Nutritional Asmnt/Malnutrition Patient General Information Nutritional Screening High Risk Consult Diagnosis renal failure, CHF Pertinent Medical Hx/Surgical Hx HTN, DM, CAD, CHF, asthma/COPD , dyslipidemia, ESRD Subjective Information Pt has ESRD on dialysis noted. Pt seen sitting in dayan-chair , awake but appeared weak and tired. Pt RN, pt has good appetite and ate 100% of breakfast in the morning. Consult received for admitting glucose 361. Not able to provide diabetic education at this time d/t pt weakness. Current Diet Order/ Nutrition Support renal Pertinent Medications reviewed Pertinent Labs 10/26 BUN 97, Cr 5.9, glucose 291 10/25 BUN 84, Cr 5.4, Glucose 361 Nutritional Hx/Data Height 1.63 m Height (Calculated Centimeters) 162.6 Current Weight (lbs) 72.121 kg Weight (Calculated Kilograms) 72.1 Weight (Calculated Grams) 07731.2 [place] Body Weight 120 Body Mass Index (BMI) 27.3 Weight Status Overweight GI Symptoms GI Symptoms None Last BM not indicated Difficult in: None Skin Integrity/Comment: skin tear to left knee, DRY FLAKKY SKIN yohana 13 Current %PO Good (75-100%) Estimated Nutritional Goals Calories/Kcals/Kg 30-35 IBW 59kg Kcals Calculated 2992-9694 Protein g/k.2-1.4 Protein Calculated 71-82 Fluid: ml per MD Nutritional Problem 1. Problem Problem altered nutrition related labs Etiology renal dysfunction and hyperglycemia Signs/Symptoms: BUN 84-97, Cr 5.4-5.9, glucose 291-361 Malnutrition Alert Is there a minimum of two criteria No selected? Query Text:Check all the applicable criteria. A minimum of two criteria are recommended for diagnosis of either severe or non-severe malnutrition. Malnutrition Related to Morbid Obesity Malnutrition related to morbid obesity No Intervention/Recommendation Comments 1. Continue with renal diet as ordered, adjust protein level to 80g for hemodialysis. Recommend adding CCHO-60gm diet for optimal glycemic control. 2. Monitor PO intake, wt, labs and skin integrity 3. F/U as high risk in 2-3 days Expected Outcomes/Goals Expected Outcomes/Goals 1. PO intake to meet at least 75% of nutritional needs. 2. Wt stability, skin to remain intact, labs to approach WNL.
[2018-10-28] MEDS: Diltiazem 30 mg Tab PO SCH ×2 (17:36→23:37)
[2018-10-29] MEDS: HYDROmorphone 1 mg/mL 1mL Syr IVP PRN ×3 (02:28→08:36)
[2018-10-29] MEDS: Diltiazem 30 mg Tab PO SCH ×4 (05:40→23:30)
--- NOTE | 2018-10-29 08:44 | General Progress Note ---
Subjective - Review of Systems Service Date: 10/29/18 Events since last encounter: NO ACUTE EVENTS BUT PLAN IS FOR EXTRA DIALYSIS TODAY TO OPTIMIZE VOLUME CONTROL Subjective: C/O MILD SOB ON 3L NC Objective - Results Result Diagrams: 10/27/18 05:50 10/27/18 05:50 Recent Labs: Laboratory Last Values WBC 6.2 Th/cmm (4.8-10.8) 10/27/18 05:50 RBC 3.32 Mil/cmm (3.80-5.10) L 10/27/18 05:50 Hgb 8.8 gm/dL (12-16) L 10/27/18 05:50 Hct 27.9 % (41.0-60) L 10/27/18 05:50 MCV 84.1 fl (81-100) 10/27/18 05:50 MCH 26.5 pg (27.0-31.0) L 10/27/18 05:50 MCHC Differential 31.5 pg (28.0-36.0) 10/27/18 05:50 RDW 21.6 % (11.5-20.0) H 10/27/18 05:50 Plt Count 109 Th/cmm (150-400) L 10/27/18 05:50 MPV 7.0 fl 10/27/18 05:50 Add Manual Diff YES 10/26/18 05:35 Neutrophils % 72.5 % (40.0-80.0) 10/27/18 05:50 Band Neutrophils % 0 % (0-10) 10/26/18 05:35 Lymphocytes % 13.1 % (20.0-50.0) L 10/27/18 05:50 Monocytes % 9.7 % (2.0-10.0) 10/27/18 05:50 Eosinophils % 4.2 % (0.0-5.0) 10/27/18 05:50 Basophils % 0.5 % (0.0-2.0) 10/27/18 05:50 Neutrophils (Manual) 83 % (40-80) H 10/26/18 05:35 Lymphocytes 8 % (20-50) L 10/26/18 05:35 Monocytes 9 % (2-10) 10/26/18 05:35 Eosinophils 0 % (0-5) 10/26/18 05:35 Basophils 0 % (0-3) 10/26/18 05:35 Platelet Estimate ADEQUATE (NORMAL) 10/25/18 16:20 Anisocytosis 1+ 10/26/18 05:35 PT 12.4 SECONDS (9.5-11.5) H 10/25/18 16:20 INR 1.20 (0.5-1.4) 10/25/18 16:20 PTT (Actin FS) 26.5 SECONDS (26.0-38.0) 10/25/18 16:20 D-Dimer 1450 ng/mL (100-400) H 10/25/18 16:20 Sodium 141 mEq/L (136-145) 10/27/18 05:50 Potassium 4.3 mEq/L (3.5-5.1) 10/27/18 05:50 Chloride 102 mEq/L (98-107) 10/27/18 05:50 Carbon Dioxide 21.0 mEq/L (21.0-31.0) 10/27/18 05:50 Anion Gap 22.3 (7.0-16.0) H 10/27/18 05:50 BUN 73 mg/dL (7-25) H 10/27/18 05:50 Creatinine 4.9 mg/dL (0.6-1.2) H* 10/27/18 05:50 Est GFR ( Amer) 11.5 ml/min (>90) 10/27/18 05:50 Est GFR (Non-Af Amer) 9.5 ml/min 10/27/18 05:50 BUN/Creatinine Ratio 14.9 10/27/18 05:50 Glucose 77 mg/dL (70-105) 10/27/18 05:50 Whole Bld Lactic Acid 1.33 mmol/L (0.60-1.99) 10/25/18 16:20 Calcium 9.0 mg/dL (8.6-10.3) 10/27/18 05:50 Total Bilirubin 0.5 mg/dL (0.3-1.0) 10/25/18 16:20 AST 9 U/L (13-39) L 10/25/18 16:20 ALT 8 U/L (7-52) 10/25/18 16:20 Alkaline Phosphatase 123 U/L (34-104) H 10/25/18 16:20 Creatine Kinase 24 U/L (30-223) L 10/25/18 16:20 Troponin I 0.12 ng/mL (0.01-0.05) H* 10/25/18 16:20 B-Natriuretic Peptide 2620.0 pg/mL (5.0-100.0) H 10/25/18 16:20 Total Protein 7.0 gm/dL (6.0-8.3) 10/25/18 16:20 Albumin 4.1 gm/dL (3.7-5.3) 10/25/18 16:20 Globulin 2.9 gm/dL 10/25/18 16:20 Albumin/Globulin Ratio 1.4 (1.0-1.8) 10/25/18 16:20 Triglycerides 57 mg/dL (<150) 10/25/18 16:20 Cholesterol 134 mg/dL (<200) 10/25/18 16:20 LDL Cholesterol Direct 39 mg/dL (75-193) L 10/25/18 16:20 HDL Cholesterol 66 mg/dL (23-92) 10/25/18 16:20 - Physical Exam Vitals and I&O: Vital Signs Temp 98.8 F 10/29/18 04:00 Pulse 93 10/29/18 08:29 Resp 20 10/29/18 07:05 BP 162/86 10/29/18 08:29 Pulse Ox 98 10/29/18 07:05 Intake & Output 10/28/18 10/29/18 10/29/18 18:59 06:59 18:59 Intake Total 300 300 Output Total 2202 Balance -1902 300 Weight (lbs) 77.111 kg 77.111 kg Intake: Oral 300 300 Output: Urine/Stool Mix 2 Hemodialysis 2200 Other: # Voids 2 2 # Bowel Movements 2 Weight Source Bedscale Bedscale Active Medications: Current Medications Acetaminophen (Tylenol) 325 mg PO Q4H PRN PRN Reason: Pain (Mild) Stop: 12/25/18 07:51 Last Admin: 10/27/18 00:00 Dose: 325 mg Albuterol/Ipratropium (Duoneb Neb) 3 ml HHN Q2HRT PRN PRN Reason: Wheezing Stop: 12/25/18 07:51 Albuterol/Ipratropium (Duoneb Neb) 3 ml HHN Q4H PRN PRN Reason: Wheezing Stop: 12/25/18 07:51 Carvedilol (Coreg) 12.5 mg PO BID HONEY Stop: 12/27/18 14:14 Last Admin: 10/29/18 08:29 Dose: 12.5 mg Diltiazem HCl (Cardizem) 20 mg IVP Q4H PRN PRN Reason: HR Greater than 130 per min Stop: 12/27/18 14:07 Last Admin: 10/28/18 14:20 Dose: 20 mg Diltiazem HCl (Cardizem) 60 mg PO Q6HR HONEY Stop: 12/27/18 17:59 Last Admin: 10/29/18 05:40 Dose: Not Given Hydromorphone HCl (Dilaudid) 1 mg IVP Q3H PRN PRN Reason: MODERATE TO SEVERE PAIN (4-10) Stop: 12/25/18 17:33 Last Admin: 10/29/18 08:36 Dose: 1 mg Quetiapine Fumarate (Seroquel) 25 mg PO BID PRN; Protocol PRN Reason: Agitation Stop: 12/25/18 16:59 Last Admin: 10/28/18 22:01 Dose: 25 mg General: Alert HEENT: Atraumatic Neck: Other (+ DIALYSIS CATHETER) Cardiovascular: Regular rate Lungs: Clear to auscultation - Procedures Procedures: Procedures Procedure Code Date PERFORMANCE OF URINARY FILTRATION, <6 HRS/DAY [id number] 09/27/18 TRANSFUSE NONAUT RED BLOOD CELLS IN PERIPH VEIN, PERC 85162C3 09/27/18 Assessment/Plan - Assessment Assessment: ESRD ON MAINTENANCE MWF DIALYSIS ANEMIA OF ESRD CHF - Plan Plan: EXTRA DIALYSIS TODAY FOR VOLUME CONTROL START EPO Nutritional Asmnt/Malnutr-PDOC - Dietary Evaluation Malnutrition Findings (Please click <Entered> for more info): Nutritional Asmnt/Malnutrition Start: 10/26/18 11: 42 Text: Status: Complete Freq: Protocol: Document 10/26/18 11:42 SOHAIL (Rec: 10/26/18 11:56 SOHAIL [email or web address]) Nutritional Asmnt/Malnutrition Patient General Information Nutritional Screening High Risk Consult Diagnosis renal failure, CHF Pertinent Medical Hx/Surgical Hx HTN, DM, CAD, CHF, asthma/COPD , dyslipidemia, ESRD Subjective Information Pt has ESRD on dialysis noted. Pt seen sitting in dayan-chair , awake but appeared weak and tired. Pt RN, pt has good appetite and ate 100% of breakfast in the morning. Consult received for admitting glucose 361. Not able to provide diabetic education at this time d/t pt weakness. Current Diet Order/ Nutrition Support renal Pertinent Medications reviewed Pertinent Labs 10/26 BUN 97, Cr 5.9, glucose 291 10/25 BUN 84, Cr 5.4, Glucose 361 Nutritional Hx/Data Height 1.63 m Height (Calculated Centimeters) 162.6 Current Weight (lbs) 72.121 kg Weight (Calculated Kilograms) 72.1 Weight (Calculated Grams) [address] Body Weight 120 Body Mass Index (BMI) 27.3 Weight Status Overweight GI Symptoms GI Symptoms None Last BM not indicated Difficult in: None Skin Integrity/Comment: skin tear to left knee, DRY FLAKKY SKIN yohana 13 Current %PO Good (75-100%) Estimated Nutritional Goals Calories/Kcals/Kg 30-35 IBW 59kg Kcals Calculated 5402-3150 Protein g/k.2-1.4 Protein Calculated 71-82 Fluid: ml per MD Nutritional Problem 1. Problem Problem altered nutrition related labs Etiology renal dysfunction and hyperglycemia Signs/Symptoms: BUN 84-97, Cr 5.4-5.9, glucose 291-361 Malnutrition Alert Is there a minimum of two criteria No selected? Query Text:Check all the applicable criteria. A minimum of two criteria are recommended for diagnosis of either severe or non-severe malnutrition. Malnutrition Related to Morbid Obesity Malnutrition related to morbid obesity No Intervention/Recommendation Comments 1. Continue with renal diet as ordered, adjust protein level to 80g for hemodialysis. Recommend adding CCHO-60gm diet for optimal glycemic control. 2. Monitor PO intake, wt, labs and skin integrity 3. F/U as high risk in 2-3 days Expected Outcomes/Goals Expected Outcomes/Goals 1. PO intake to meet at least 75% of nutritional needs. 2. Wt stability, skin to remain intact, labs to approach WNL.
[2018-10-29 11:31] LABS: % BASOPHILS 1.7 % (0.0-2.0); % EOSINOPHILS 2.8 % (0.0-5.0); % LYMPHOCYTES 16.1 % (20.0-50.0); % MONOCYTES 7.2 % (2.0-10.0); % NEUTROPHILS 72.2 % (40.0-80.0); BASOPHILE ABSOLUTE 0.1 Th/cumm (0-0.2); EOSINOPHILE ABSOLUTE 0.1 Th/cmm (0.1-0.4); HEMATOCRIT 24.4 % (41.0-60); LYMPHOCYTE ABSOLUTE 0.7 Th/cmm (1.5-3.0); MEAN CELL VOLUME 83.7 fl (81-100); MEAN CORPUSCULAR HEMOGLOBIN 26.7 pg (27.0-31.0); MEAN CORPUSCULAR HGB CONC 31.9 pg (28.0-36.0); MEAN PLATELET VOLUME 7.4 fl; MONOCYTE ABSOLUTE 0.3 Th/cmm (0.3-1.0); PLATELET COUNT 96 Th/cmm (150-400); RED BLOOD COUNT 2.91 Mil/cmm (3.80-5.10); WHITE BLOOD COUNT 4.2 Th/cmm (4.8-10.8)
[2018-10-29 11:35] LABS: HEMOGLOBIN 7.8 gm/dL (12-16)
[2018-10-29 11:47] LABS: ALB/GLOB RATIO 1.3 (1.0-1.8); ALBUMIN 3.4 gm/dL (3.7-5.3); ANION GAP 16.4 (7.0-16.0); BILIRUBIN,TOTAL 0.5 mg/dL (0.3-1.0); CALCIUM SERUM 8.6 mg/dL (8.6-10.3); CARBON DIOXIDE 27.6 mEq/L (21.0-31.0); GFR NON AFRICAN-AMERICAN 9.9 ml/min
[2018-10-29 11:56] LABS: CREATININE - SERUM 4.7 mg/dL (0.6-1.2)
--- NOTE | 2018-10-29 13:21 | Consultation ---
DATE OF CONSULTATION: 10/28/[address] Duque. HISTORY OF PRESENT ILLNESS: This is a 63-year-old female patient recently discharged from [facility]. The patient was at a residential. The patient started complaining of shortness of breath, cough. Following this, the patient was brought to the Emergency Room with pneumonia, congestive heart failure. During the hospital stay, the patient had a heart rate of 160 and hence Cardiology consult is requested. PAST MEDICAL HISTORY: Congestive heart failure, diastolic dysfunction, chronic hypertension, diabetes mellitus type 2, diabetic CKD stage 5, end-stage renal disease, on dialysis, stable angina, asthma, COPD, iron deficiency anemia. FAMILY HISTORY: Unremarkable. SOCIAL HISTORY: No history of smoking, alcohol abuse. ALLERGIES: None. PHYSICAL EXAMINATION: VITAL SIGNS: Blood pressure 136/80, pulse 160, respirations 28. HEAD: Normocephalic. No lumps or bumps. EYES: Pupils equal, reactive to light. Fundi show AV nicking, sclerae white, conjunctivae pink. NECK: Carotid 2+. Normal upstroke. JVD 10 cm above sternal angle. Thyroid not palpable. Lymph nodes not palpable. CHEST: Shows increased AP diameter. No kyphosis, scoliosis. LUNGS: Bilateral rales. Decreased breath sounds both the bases. HEART: PMI sixth intercostal space with lateral to midclavicular line. S1, S2, S3, S4, soft systolic murmur. ABDOMEN: Soft. Liver, spleen not palpable. Hepatojugular reflux, positive bowel sounds active. RECTAL: Deferred. EXTREMITIES: Peripheral pulses feeble. Bilateral pedal edema. CLINICAL IMPRESSION: Congestive heart failure, diastolic dysfunction, acute on chronic, hypertension, supraventricular tachycardia, diabetes mellitus type 2, diabetic chronic kidney disease stage 5, end-stage renal disease, on dialysis, stable angina, asthma, chronic obstructive pulmonary disease, iron deficiency anemia, osteoporosis. PLAN: At the present time, we will continue present management, monitor the patient. The patient to be given IV Cardizem, oral Cardizem, ultrafiltration for fluid overload. JOB# [id number]
--- NOTE | 2018-10-29 13:21 | Progress Notes ---
DATE: 10/28/2018 A 63-year-old female, seems to be somewhat calmer. Today on exam, she is pretty lethargic, getting dialysis, sleeping but arousable, but goes back to sleep. Staff noting she has been pretty well oriented, less screaming episodes. She is screaming occasionally for pain medications, on and off agitation, very fixated on pain medications, pain seeking, opiate seeking, tolerating dialysis. PLAN: We will continue to monitor. The patient is somewhat lethargic, not really amenable to interview. We will attempt to follow up at a later time. Medications were noted. [facility]# [id number]
[2018-10-29] MEDS: HYDROmorphone 2 mg/mL 1mL Vial IVP PRN ×2 (13:51→17:54)
[2018-10-29] MEDS: Epoetin Alfa 20000 Units/mL Vial SUBQ SCH (17:12)
[2018-10-30] MEDS ORDERED: Albumin 25% 25gm/100mL 25 GM/100 ML BTL IV PRN
[2018-10-30 05:30] LABS: % EOSINOPHILS 2.7 % (0.0-5.0); % LYMPHOCYTES 20.8 % (20.0-50.0); % MONOCYTES 12.3 % (2.0-10.0); % NEUTROPHILS 63.2 % (40.0-80.0); BASOPHILE ABSOLUTE 0.1 Th/cumm (0-0.2); EOSINOPHILE ABSOLUTE 0.1 Th/cmm (0.1-0.4); HEMATOCRIT 25.4 % (41.0-60); HEMOGLOBIN 8.2 gm/dL (12-16); LYMPHOCYTE ABSOLUTE 1.1 Th/cmm (1.5-3.0); MEAN CELL VOLUME 83.7 fl (81-100); MEAN CORPUSCULAR HEMOGLOBIN 27.1 pg (27.0-31.0); MEAN CORPUSCULAR HGB CONC 32.3 pg (28.0-36.0); MEAN PLATELET VOLUME 7.6 fl; MONOCYTE ABSOLUTE 0.6 Th/cmm (0.3-1.0); NEUTROPHILE ABSOLUTE 3.2 Th/cmm (1.8-8.0); PLATELET COUNT 90 Th/cmm (150-400); RED BLOOD COUNT 3.04 Mil/cmm (3.80-5.10); RED CELL DISTRIBUTION WIDTH 20.8 % (11.5-20.0); WHITE BLOOD COUNT 5.1 Th/cmm (4.8-10.8)
[2018-10-30] MEDS: Diltiazem 30 mg Tab PO SCH ×4 (05:35→23:17)
[2018-10-30] MEDS: HYDROmorphone 2 mg/mL 1mL Vial IVP PRN ×5 (06:25→23:57)
[2018-10-30 06:30] LABS: ALB/GLOB RATIO 1.3 (1.0-1.8); ALBUMIN 3.4 gm/dL (3.7-5.3); ANION GAP 17.1 (7.0-16.0); BILIRUBIN,TOTAL 0.6 mg/dL (0.3-1.0); CALCIUM SERUM 8.9 mg/dL (8.6-10.3); CARBON DIOXIDE 26.9 mEq/L (21.0-31.0); GFR AFRICAN-AMERICAN 12.7 ml/min (>90); GFR NON AFRICAN-AMERICAN 10.5 ml/min
[2018-10-30 06:45] LABS: CREATININE - SERUM 4.5 mg/dL (0.6-1.2)
--- NOTE | 2018-10-30 09:39 | Progress Notes ---
DATE: 10/30/2018 SUBJECTIVE: This is a 63-year-old female who was seen and examined. The patient's status remains the same. OBJECTIVE: On looking at the, VITAL SIGNS: The heart rate was 18, blood pressure was 124/60, temperature 98, respirations 18, O2 saturation 98. SKIN: Normal. HEAD: Normocephalic. EYES: Conjunctivae were pink. There is no icterus in the eyes. Pupils reacting to light. NECK: There were no increased jugular venous distention, no thyromegaly, no lymphadenopathy. Carotids equal both sides. CHEST: Bilaterally symmetrical. Moves well with respiration. Respiratory movements equal both sides. Trachea is central. There is note to percussion. Breath sound, basilar rales, few rhonchi. CARDIOVASCULAR SYSTEM: PMI not well localized. There are no pulsation or thrill. No parasternal heave. S1 normal, S2 physiologic. There were no S3, no rub. ABDOMEN: Soft, no tenderness, no rigidity, no guarding and no organomegaly. Bowel sounds normal. EXTREMITIES: There is no calf tenderness. Peripheral pulses diminished. IMPRESSION: Hypertension, history of coronary artery disease, history of congestive heart failure, diabetes type 2, diabetic chronic kidney disease, end-stage renal disease on hemodialysis, acute febrile illness. Suggest to continue present management. We will follow him with you. JOB# [id number]
--- NOTE | 2018-10-30 10:51 | General Progress Note ---
Subjective - Review of Systems Service Date: 10/30/18 Events since last encounter: UNDERWENT HD WITH 2L UF BREATHING IS BETTER Subjective: BREATHING IS BETTER ON RA WHEN I SEE HER THIS AM Objective - Results Result Diagrams: 10/30/18 05:00 10/30/18 05:00 Recent Labs: Laboratory Last Values WBC 5.1 Th/cmm (4.8-10.8) D 10/30/18 05:00 RBC 3.04 Mil/cmm (3.80-5.10) L 10/30/18 05:00 Hgb 8.2 gm/dL (12-16) L 10/30/18 05:00 Hct 25.4 % (41.0-60) L 10/30/18 05:00 MCV 83.7 fl (81-100) 10/30/18 05:00 MCH 27.1 pg (27.0-31.0) 10/30/18 05:00 MCHC Differential 32.3 pg (28.0-36.0) 10/30/18 05:00 RDW 20.8 % (11.5-20.0) H 10/30/18 05:00 Plt Count 90 Th/cmm (150-400) L 10/30/18 05:00 MPV 7.6 fl 10/30/18 05:00 Add Manual Diff YES 10/26/18 05:35 Neutrophils % 63.2 % (40.0-80.0) 10/30/18 05:00 Band Neutrophils % 0 % (0-10) 10/26/18 05:35 Lymphocytes % 20.8 % (20.0-50.0) 10/30/18 05:00 Monocytes % 12.3 % (2.0-10.0) H 10/30/18 05:00 Eosinophils % 2.7 % (0.0-5.0) 10/30/18 05:00 Basophils % 1.0 % (0.0-2.0) 10/30/18 05:00 Neutrophils (Manual) 83 % (40-80) H 10/26/18 05:35 Lymphocytes 8 % (20-50) L 10/26/18 05:35 Monocytes 9 % (2-10) 10/26/18 05:35 Eosinophils 0 % (0-5) 10/26/18 05:35 Basophils 0 % (0-3) 10/26/18 05:35 Platelet Estimate ADEQUATE (NORMAL) 10/25/18 16:20 Anisocytosis 1+ 10/26/18 05:35 PT 12.4 SECONDS (9.5-11.5) H 10/25/18 16:20 INR 1.20 (0.5-1.4) 10/25/18 16:20 PTT (Actin FS) 26.5 SECONDS (26.0-38.0) 10/25/18 16:20 D-Dimer 1450 ng/mL (100-400) H 10/25/18 16:20 Sodium 141 mEq/L (136-145) 10/30/18 05:00 Potassium 4.0 mEq/L (3.5-5.1) 10/30/18 05:00 Chloride 101 mEq/L (98-107) 10/30/18 05:00 Carbon Dioxide 26.9 mEq/L (21.0-31.0) 10/30/18 05:00 Anion Gap 17.1 (7.0-16.0) H 10/30/18 05:00 BUN 45 mg/dL (7-25) H 10/30/18 05:00 Creatinine 4.5 mg/dL (0.6-1.2) H* 10/30/18 05:00 Est GFR ( Amer) 12.7 ml/min (>90) 10/30/18 05:00 Est GFR (Non-Af Amer) 10.5 ml/min 10/30/18 05:00 BUN/Creatinine Ratio 10.0 10/30/18 05:00 Glucose 103 mg/dL (70-105) 10/30/18 05:00 Whole Bld Lactic Acid 1.33 mmol/L (0.60-1.99) 10/25/18 16:20 Calcium 8.9 mg/dL (8.6-10.3) 10/30/18 05:00 Total Bilirubin 0.6 mg/dL (0.3-1.0) 10/30/18 05:00 AST 18 U/L (13-39) 10/30/18 05:00 ALT 7 U/L (7-52) 10/30/18 05:00 Alkaline Phosphatase 136 U/L (34-104) H 10/30/18 05:00 Creatine Kinase 24 U/L (30-223) L 10/25/18 16:20 Troponin I 0.12 ng/mL (0.01-0.05) H* 10/25/18 16:20 B-Natriuretic Peptide 2620.0 pg/mL (5.0-100.0) H 10/25/18 16:20 Total Protein 6.0 gm/dL (6.0-8.3) 10/30/18 05:00 Albumin 3.4 gm/dL (3.7-5.3) L 10/30/18 05:00 Globulin 2.6 gm/dL 10/30/18 05:00 Albumin/Globulin Ratio 1.3 (1.0-1.8) 10/30/18 05:00 Triglycerides 57 mg/dL (<150) 10/25/18 16:20 Cholesterol 134 mg/dL (<200) 10/25/18 16:20 LDL Cholesterol Direct 39 mg/dL (75-193) L 10/25/18 16:20 HDL Cholesterol 66 mg/dL (23-92) 10/25/18 16:20 - Physical Exam Vitals and I&O: Vital Signs Temp 98.5 F 10/30/18 07:52 Pulse 66 10/30/18 09:01 Resp 18 10/30/18 07:52 BP 115/59 10/30/18 09:01 Pulse Ox 94 10/30/18 07:52 Intake & Output 10/29/18 10/30/18 10/30/18 18:59 06:59 18:59 Intake Total 480 Balance 480 Weight (lbs) 77.111 kg Intake: Oral 480 Other: # Voids 2 # Bowel Movements 1 Stool Characteristics Soft Soft Soft Weight Source Bedscale Active Medications: Current Medications Acetaminophen (Tylenol) 325 mg PO Q4H PRN PRN Reason: Pain (Mild) Stop: 12/25/18 07:51 Last Admin: 10/30/18 03:51 Dose: 325 mg Albuterol/Ipratropium (Duoneb Neb) 3 ml HHN Q2HRT PRN PRN Reason: Wheezing Stop: 12/25/18 07:51 Albuterol/Ipratropium (Duoneb Neb) 3 ml HHN Q4H PRN PRN Reason: Wheezing Stop: 12/25/18 07:51 Carvedilol (Coreg) 12.5 mg PO BID [facility] Stop: 12/27/18 14:14 Last Admin: 10/30/18 09:01 Dose: Not Given Diltiazem HCl (Cardizem) 20 mg IVP Q4H PRN PRN Reason: HR Greater than 130 per min Stop: 12/27/18 14:07 Last Admin: 10/28/18 14:20 Dose: 20 mg Diltiazem HCl (Cardizem) 60 mg PO Q6HR [facility] Stop: 12/27/18 17:59 Last Admin: 10/30/18 05:35 Dose: 60 mg Epoetin Jordi (Epogen) 10,000 units SUBQ TuThSa [facility] Stop: 12/28/18 15:59 Last Admin: 10/29/18 17:12 Dose: 10,000 units Heparin Sodium (Porcine) (Heparin) 10,000 units HD UD [facility] Stop: 10/31/18 00:00 Last Admin: 10/30/18 10:00 Dose: Not Given Hydromorphone HCl (Dilaudid) 1 mg IVP Q3H PRN PRN Reason: MODERATE PAIN Stop: 12/25/18 17:33 Hydromorphone HCl (Dilaudid) 2 mg IVP Q4HR PRN PRN Reason: Severe Pain Stop: 12/28/18 10:59 Last Admin: 10/30/18 10:23 Dose: 2 mg Albumin Human (Albuminar 25%) 25 gm in 100 mls @ 50 mls/hr IV PRN PRN PRN Reason: BP Support During HD Stop: 10/30/18 23:00 Quetiapine Fumarate (Seroquel) 25 mg PO BID PRN; Protocol PRN Reason: Agitation Stop: 12/25/18 16:59 Last Admin: 10/30/18 03:51 Dose: 25 mg General: Alert HEENT: Atraumatic Neck: Other (+ DIALYSIS CATHETER) Cardiovascular: Regular rate Lungs: Clear to auscultation - Procedures Procedures: Procedures Procedure Code Date PERFORMANCE OF URINARY FILTRATION, <6 HRS/DAY [id number] 09/27/18 TRANSFUSE NONAUT RED BLOOD CELLS IN PERIPH VEIN, PERC [id number] 09/27/18 Assessment/Plan - Assessment Assessment: ESRD ON MAINTENANCE MWF DIALYSIS ANEMIA OF ESRD CHF - Plan Plan: CONT EPO NO NEED FOR EXTRA HD TODAY PT CAN BE DIALYZED NEXT OUTPATIENT AT [facility] T[facility] DW PT DW RN Nutritional Asmnt/Malnutr-PDOC - Dietary Evaluation Malnutrition Findings (Please click <Entered> for more info): Nutritional Asmnt/Malnutrition Start: 10/26/18 11: 42 Text: Status: Complete Freq: Protocol: Document 10/26/18 11:42 LCHENG (Rec: 10/26/18 11:56 LCHENG [email or web address]) Nutritional Asmnt/Malnutrition Patient General Information Nutritional Screening High Risk Consult Diagnosis renal failure, CHF Pertinent Medical Hx/Surgical Hx HTN, DM, CAD, CHF, asthma/COPD , dyslipidemia, ESRD Subjective Information Pt has ESRD on dialysis noted. Pt seen sitting in dayan-chair , awake but appeared weak and tired. Pt RN, pt has good appetite and ate 100% of breakfast in the morning. Consult received for admitting glucose 361. Not able to provide diabetic education at this time d/t pt weakness. Current Diet Order/ Nutrition Support renal Pertinent Medications reviewed Pertinent Labs 10/26 BUN 97, Cr 5.9, glucose 291 10/25 BUN 84, Cr 5.4, Glucose 361 Nutritional Hx/Data Height 1.63 m Height (Calculated Centimeters) 162.6 Current Weight (lbs) 72.121 kg Weight (Calculated Kilograms) 72.1 Weight (Calculated Grams) 49953.2 [place] Body Weight 120 Body Mass Index (BMI) 27.3 Weight Status Overweight GI Symptoms GI Symptoms None Last BM not indicated Difficult in: None Skin Integrity/Comment: skin tear to left knee, DRY FLAKKY SKIN yohana 13 Current %PO Good (75-100%) Estimated Nutritional Goals Calories/Kcals/Kg 30-35 IBW 59kg Kcals Calculated 7761-7987 Protein g/k.2-1.4 Protein Calculated 71-82 Fluid: ml per MD Nutritional Problem 1. Problem Problem altered nutrition related labs Etiology renal dysfunction and hyperglycemia Signs/Symptoms: BUN 84-97, Cr 5.4-5.9, glucose 291-361 Malnutrition Alert Is there a minimum of two criteria No selected? Query Text:Check all the applicable criteria. A minimum of two criteria are recommended for diagnosis of either severe or non-severe malnutrition. Malnutrition Related to Morbid Obesity Malnutrition related to morbid obesity No Intervention/Recommendation Comments 1. Continue with renal diet as ordered, adjust protein level to 80g for hemodialysis. Recommend adding [facility]-60gm diet for optimal glycemic control. 2. Monitor PO intake, wt, labs and skin integrity 3. F/U as high risk in 2-3 days Expected Outcomes/Goals Expected Outcomes/Goals 1. PO intake to meet at least 75% of nutritional needs. 2. Wt stability, skin to remain intact, labs to approach WNL.
--- NOTE | 2018-10-30 12:04 | Internal Medicine Prog Note ---
Internal Medicine Subjective - Subjective Patient seen and examined:: chart reviewed Patient is:: awake, agitated, confused, other (no sob, had hd today) Patient Complaints of:: congestion, cough Per staff patient has:: no adverse event, no episodes of fall, tolerating meds Internal Medicine Objective - Results Result Diagrams: 10/30/18 05:00 10/30/18 05:00 Recent Labs: Laboratory Last Values WBC 5.1 Th/cmm (4.8-10.8) D 10/30/18 05:00 RBC 3.04 Mil/cmm (3.80-5.10) L 10/30/18 05:00 Hgb 8.2 gm/dL (12-16) L 10/30/18 05:00 Hct 25.4 % (41.0-60) L 10/30/18 05:00 MCV 83.7 fl (81-100) 10/30/18 05:00 MCH 27.1 pg (27.0-31.0) 10/30/18 05:00 MCHC Differential 32.3 pg (28.0-36.0) 10/30/18 05:00 RDW 20.8 % (11.5-20.0) H 10/30/18 05:00 Plt Count 90 Th/cmm (150-400) L 10/30/18 05:00 MPV 7.6 fl 10/30/18 05:00 Add Manual Diff YES 10/26/18 05:35 Neutrophils % 63.2 % (40.0-80.0) 10/30/18 05:00 Band Neutrophils % 0 % (0-10) 10/26/18 05:35 Lymphocytes % 20.8 % (20.0-50.0) 10/30/18 05:00 Monocytes % 12.3 % (2.0-10.0) H 10/30/18 05:00 Eosinophils % 2.7 % (0.0-5.0) 10/30/18 05:00 Basophils % 1.0 % (0.0-2.0) 10/30/18 05:00 Neutrophils (Manual) 83 % (40-80) H 10/26/18 05:35 Lymphocytes 8 % (20-50) L 10/26/18 05:35 Monocytes 9 % (2-10) 10/26/18 05:35 Eosinophils 0 % (0-5) 10/26/18 05:35 Basophils 0 % (0-3) 10/26/18 05:35 Platelet Estimate ADEQUATE (NORMAL) 10/25/18 16:20 Anisocytosis 1+ 10/26/18 05:35 PT 12.4 SECONDS (9.5-11.5) H 10/25/18 16:20 INR 1.20 (0.5-1.4) 10/25/18 16:20 PTT (Actin FS) 26.5 SECONDS (26.0-38.0) 10/25/18 16:20 D-Dimer 1450 ng/mL (100-400) H 10/25/18 16:20 Sodium 141 mEq/L (136-145) 10/30/18 05:00 Potassium 4.0 mEq/L (3.5-5.1) 10/30/18 05:00 Chloride 101 mEq/L (98-107) 10/30/18 05:00 Carbon Dioxide 26.9 mEq/L (21.0-31.0) 10/30/18 05:00 Anion Gap 17.1 (7.0-16.0) H 10/30/18 05:00 BUN 45 mg/dL (7-25) H 10/30/18 05:00 Creatinine 4.5 mg/dL (0.6-1.2) H* 10/30/18 05:00 Est GFR ( Amer) 12.7 ml/min (>90) 10/30/18 05:00 Est GFR (Non-Af Amer) 10.5 ml/min 10/30/18 05:00 BUN/Creatinine Ratio 10.0 10/30/18 05:00 Glucose 103 mg/dL (70-105) 10/30/18 05:00 Whole Bld Lactic Acid 1.33 mmol/L (0.60-1.99) 10/25/18 16:20 Calcium 8.9 mg/dL (8.6-10.3) 10/30/18 05:00 Total Bilirubin 0.6 mg/dL (0.3-1.0) 10/30/18 05:00 AST 18 U/L (13-39) 10/30/18 05:00 ALT 7 U/L (7-52) 10/30/18 05:00 Alkaline Phosphatase 136 U/L (34-104) H 10/30/18 05:00 Creatine Kinase 24 U/L (30-223) L 10/25/18 16:20 Troponin I 0.12 ng/mL (0.01-0.05) H* 10/25/18 16:20 B-Natriuretic Peptide 2620.0 pg/mL (5.0-100.0) H 10/25/18 16:20 Total Protein 6.0 gm/dL (6.0-8.3) 10/30/18 05:00 Albumin 3.4 gm/dL (3.7-5.3) L 10/30/18 05:00 Globulin 2.6 gm/dL 10/30/18 05:00 Albumin/Globulin Ratio 1.3 (1.0-1.8) 10/30/18 05:00 Triglycerides 57 mg/dL (<150) 10/25/18 16:20 Cholesterol 134 mg/dL (<200) 10/25/18 16:20 LDL Cholesterol Direct 39 mg/dL (75-193) L 10/25/18 16:20 HDL Cholesterol 66 mg/dL (23-92) 10/25/18 16:20 - Physical Exam Vitals and I&O: Vital Signs Temp 98.5 F 10/30/18 07:52 Pulse 66 10/30/18 09:01 Resp 18 10/30/18 11:00 BP 115/59 10/30/18 09:01 Pulse Ox 94 10/30/18 07:52 Intake & Output 10/29/18 10/30/18 10/30/18 18:59 06:59 18:59 Intake Total 480 Balance 480 Weight (lbs) 77.111 kg Intake: Oral 480 Other: # Voids 2 # Bowel Movements 1 Stool Characteristics Soft Soft Soft Brown Weight Source Bedscale Active Medications: Current Medications Acetaminophen (Tylenol) 325 mg PO Q4H PRN PRN Reason: Pain (Mild) Stop: 12/25/18 07:51 Last Admin: 10/30/18 03:51 Dose: 325 mg Albuterol/Ipratropium (Duoneb Neb) 3 ml HHN Q2HRT PRN PRN Reason: Wheezing Stop: 12/25/18 07:51 Albuterol/Ipratropium (Duoneb Neb) 3 ml HHN Q4H PRN PRN Reason: Wheezing Stop: 12/25/18 07:51 Carvedilol (Coreg) 12.5 mg PO BID [facility] Stop: 12/27/18 14:14 Last Admin: 10/30/18 09:01 Dose: Not Given Diltiazem HCl (Cardizem) 20 mg IVP Q4H PRN PRN Reason: HR Greater than 130 per min Stop: 12/27/18 14:07 Last Admin: 10/28/18 14:20 Dose: 20 mg Diltiazem HCl (Cardizem) 60 mg PO Q6HR [facility] Stop: 12/27/18 17:59 Last Admin: 10/30/18 05:35 Dose: 60 mg Epoetin Jordi (Epogen) 10,000 units SUBQ TuThSa [facility] Stop: 12/28/18 15:59 Last Admin: 10/29/18 17:12 Dose: 10,000 units Heparin Sodium (Porcine) (Heparin) 10,000 units HD UD [facility] Stop: 10/31/18 00:00 Last Admin: 10/30/18 10:00 Dose: Not Given Hydromorphone HCl (Dilaudid) 1 mg IVP Q3H PRN PRN Reason: MODERATE PAIN Stop: 12/25/18 17:33 Hydromorphone HCl (Dilaudid) 2 mg IVP Q4HR PRN PRN Reason: Severe Pain Stop: 12/28/18 10:59 Last Admin: 10/30/18 10:23 Dose: 2 mg Albumin Human (Albuminar 25%) 25 gm in 100 mls @ 50 mls/hr IV PRN PRN PRN Reason: BP Support During HD Stop: 10/30/18 23:00 Quetiapine Fumarate (Seroquel) 25 mg PO BID PRN; Protocol PRN Reason: Agitation Stop: 12/25/18 16:59 Last Admin: 10/30/18 03:51 Dose: 25 mg Physical Exam: Patient's blood pressure is stable, no new complaints reported. General: appears older HEENT: NC/AT, PERRLA Neck: Supple Lungs: congested, other (cough) Cardiovascular: RRR, Normal S1, Normal S2 Abdomen: non-tender, non-distended Extremities: clear Neurological: no change, alert - Procedures Procedures: Procedures Procedure Code Date PERFORMANCE OF URINARY FILTRATION, <6 HRS/DAY [id number] 09/27/18 TRANSFUSE NONAUT RED BLOOD CELLS IN PERIPH VEIN, PERC 66117B6 09/27/18 Internal Medicine Assmt/Plan - Assessment Assessment: acute febrile illness cough and congestion asthma esrd, on dialysis chf cad dm htn - Plan Plan: iv antibiotic monitor vitals, fever control as per order sheet Nutritional Asmnt/Malnutr-PDOC - Dietary Evaluation Malnutrition Findings (Please click <Entered> for more info): Nutritional Asmnt/Malnutrition Start: 10/26/18 11: 42 Text: Status: Complete Freq: Protocol: Document 10/26/18 11:42 [email or web address] (Rec: 10/26/18 11:56 HENG [email or web address]) Nutritional Asmnt/Malnutrition Patient General Information Nutritional Screening High Risk Consult Diagnosis renal failure, CHF Pertinent Medical Hx/Surgical Hx HTN, DM, CAD, CHF, asthma/COPD , dyslipidemia, ESRD Subjective Information Pt has ESRD on dialysis noted. Pt seen sitting in dayan-chair , awake but appeared weak and tired. Pt RN, pt has good appetite and ate 100% of breakfast in the morning. Consult received for admitting glucose 361. Not able to provide diabetic education at this time d/t pt weakness. Current Diet Order/ Nutrition Support renal Pertinent Medications reviewed Pertinent Labs 10/26 BUN 97, Cr 5.9, glucose 291 10/25 BUN 84, Cr 5.4, Glucose 361 Nutritional Hx/Data Height 1.63 m Height (Calculated Centimeters) 162.6 Current Weight (lbs) 72.121 kg Weight (Calculated Kilograms) 72.1 Weight (Calculated Grams) 16827.2 [place] Body Weight 120 Body Mass Index (BMI) 27.3 Weight Status Overweight GI Symptoms GI Symptoms None Last BM not indicated Difficult in: None Skin Integrity/Comment: skin tear to left knee, DRY FLAKKY SKIN yohana 13 Current %PO Good (75-100%) Estimated Nutritional Goals Calories/Kcals/Kg 30-35 IBW 59kg Kcals Calculated 5077-3628 Protein g/k.2-1.4 Protein Calculated 71-82 Fluid: ml per MD Nutritional Problem 1. Problem Problem altered nutrition related labs Etiology renal dysfunction and hyperglycemia Signs/Symptoms: BUN 84-97, Cr 5.4-5.9, glucose 291-361 Malnutrition Alert Is there a minimum of two criteria No selected? Query Text:Check all the applicable criteria. A minimum of two criteria are recommended for diagnosis of either severe or non-severe malnutrition. Malnutrition Related to Morbid Obesity Malnutrition related to morbid obesity No Intervention/Recommendation Comments 1. Continue with renal diet as ordered, adjust protein level to 80g for hemodialysis. Recommend adding CCHO-60gm diet for optimal glycemic control. 2. Monitor PO intake, wt, labs and skin integrity 3. F/U as high risk in 2-3 days Expected Outcomes/Goals Expected Outcomes/Goals 1. PO intake to meet at least 75% of nutritional needs. 2. Wt stability, skin to remain intact, labs to approach WNL.
--- NOTE | 2018-10-30 13:06 | Progress Notes ---
DATE: 10/29/2018 The patient was seen and evaluated. The patient's chart reviewed. IDENTIFYING DATA: A 63-year-old female brought here with a history of bipolar. She has been intermittently yelling and screaming. Nursing staff reporting that she will intermittently scream. Today on [id number] evaluation, the patient reports that she screams because she is in pain. She denies any complication and side effects of medications. CURRENT MEDICATIONS: Seroquel 25 mg p.o. b.i.d. ASSESSMENT AND PLAN: The patient with history of possible bipolar, presents in an organized linear manner. She finds herself with pain, intermittently receiving medications for her pain, but also with agitation that comes from the pain itself. Recommended to continue addressing the patient's pain, monitoring. At this point, she denies any complications. No suicidal or homicidal ideation. [facility]# [id number]
[2018-10-31] MEDS: HYDROmorphone 2 mg/mL 1mL Vial IVP PRN ×4 (04:00→20:16)
[2018-10-31] MEDS: Diltiazem 30 mg Tab PO SCH ×3 (06:27→18:00)
[2018-10-31 10:57] LABS: BASOPHILE ABSOLUTE 0.1 Th/cumm (0-0.2); EOSINOPHILE ABSOLUTE 0.1 Th/cmm (0.1-0.4); HEMATOCRIT 27.9 % (41.0-60); LYMPHOCYTE ABSOLUTE 0.9 Th/cmm (1.5-3.0); MEAN CELL VOLUME 84.2 fl (81-100); MEAN PLATELET VOLUME 7.8 fl; MONOCYTE ABSOLUTE 0.9 Th/cmm (0.3-1.0); NEUTROPHILE ABSOLUTE 3.8 Th/cmm (1.8-8.0); PLATELET COUNT 91 Th/cmm (150-400); RED BLOOD COUNT 3.32 Mil/cmm (3.80-5.10); RED CELL DISTRIBUTION WIDTH 19.9 % (11.5-20.0); WHITE BLOOD COUNT 5.8 Th/cmm (4.8-10.8)
[2018-10-31 11:15] LABS: ALB/GLOB RATIO 1.2 (1.0-1.8); ALBUMIN 3.6 gm/dL (3.7-5.3); ANION GAP 18.1 (7.0-16.0); BILIRUBIN,TOTAL 0.5 mg/dL (0.3-1.0); CALCIUM SERUM 8.7 mg/dL (8.6-10.3); CARBON DIOXIDE 27.3 mEq/L (21.0-31.0); GFR AFRICAN-AMERICAN 9.3 ml/min (>90); GFR NON AFRICAN-AMERICAN 7.7 ml/min; POTASSIUM SERUM 4.4 mEq/L (3.5-5.1); TOTAL PROTEIN,SERUM 6.7 gm/dL (6.0-8.3)
[2018-10-31 11:27] LABS: CREATININE - SERUM 5.9 mg/dL (0.6-1.2)
[2018-10-31 11:30] LABS: BAND NEUTROPHILE 0 % (0-10); BASOPHIL 0 % (0-3); EOSINOPHIL 3 % (0-5); LYMPHOCYTE 15 % (20-50); MONOCYTE 14 % (2-10); NEUTROPHILS 68 % (40-80)
--- NOTE | 2018-10-31 12:49 | General Progress Note ---
Subjective - Review of Systems Service Date: 10/31/18 Subjective: Patient has less shortness of breath no complaint of chest pain Objective - Results Result Diagrams: 10/31/18 10:45 10/31/18 10:45 Recent Labs: Laboratory Last Values WBC 5.8 Th/cmm (4.8-10.8) 10/31/18 10:45 RBC 3.32 Mil/cmm (3.80-5.10) L 10/31/18 10:45 Hgb 9.0 gm/dL (12-16) L 10/31/18 10:45 Hct 27.9 % (41.0-60) L 10/31/18 10:45 MCV 84.2 fl (81-100) 10/31/18 10:45 MCH 27.0 pg (27.0-31.0) 10/31/18 10:45 MCHC Differential 32.0 pg (28.0-36.0) 10/31/18 10:45 RDW 19.9 % (11.5-20.0) 10/31/18 10:45 Plt Count 91 Th/cmm (150-400) L 10/31/18 10:45 MPV 7.8 fl 10/31/18 10:45 Add Manual Diff YES 10/31/18 10:45 Neutrophils % 63.2 % (40.0-80.0) 10/30/18 05:00 Band Neutrophils % 0 % (0-10) 10/31/18 10:45 Lymphocytes % 20.8 % (20.0-50.0) 10/30/18 05:00 Monocytes % 12.3 % (2.0-10.0) H 10/30/18 05:00 Eosinophils % 2.7 % (0.0-5.0) 10/30/18 05:00 Basophils % 1.0 % (0.0-2.0) 10/30/18 05:00 Neutrophils (Manual) 68 % (40-80) 10/31/18 10:45 Lymphocytes 15 % (20-50) L 10/31/18 10:45 Monocytes 14 % (2-10) H 10/31/18 10:45 Eosinophils 3 % (0-5) 10/31/18 10:45 Basophils 0 % (0-3) 10/31/18 10:45 Platelet Estimate ADEQUATE (NORMAL) 10/25/18 16:20 Anisocytosis 1+ 10/26/18 05:35 PT 12.4 SECONDS (9.5-11.5) H 10/25/18 16:20 INR 1.20 (0.5-1.4) 10/25/18 16:20 PTT (Actin FS) 26.5 SECONDS (26.0-38.0) 10/25/18 16:20 D-Dimer 1450 ng/mL (100-400) H 10/25/18 16:20 Sodium 138 mEq/L (136-145) 10/31/18 10:45 Potassium 4.4 mEq/L (3.5-5.1) 10/31/18 10:45 Chloride 97 mEq/L (98-107) L 10/31/18 10:45 Carbon Dioxide 27.3 mEq/L (21.0-31.0) 10/31/18 10:45 Anion Gap 18.1 (7.0-16.0) H 10/31/18 10:45 BUN 54 mg/dL (7-25) H 10/31/18 10:45 Creatinine 5.9 mg/dL (0.6-1.2) H* 10/31/18 10:45 Est GFR ( Amer) 9.3 ml/min (>90) 10/31/18 10:45 Est GFR (Non-Af Amer) 7.7 ml/min 10/31/18 10:45 BUN/Creatinine Ratio 9.2 10/31/18 10:45 Glucose 127 mg/dL (70-105) H 10/31/18 10:45 Whole Bld Lactic Acid 1.33 mmol/L (0.60-1.99) 10/25/18 16:20 Calcium 8.7 mg/dL (8.6-10.3) 10/31/18 10:45 Total Bilirubin 0.5 mg/dL (0.3-1.0) 10/31/18 10:45 AST 14 U/L (13-39) 10/31/18 10:45 ALT 6 U/L (7-52) L 10/31/18 10:45 Alkaline Phosphatase 150 U/L (34-104) H 10/31/18 10:45 Creatine Kinase 24 U/L (30-223) L 10/25/18 16:20 Troponin I 0.12 ng/mL (0.01-0.05) H* 10/25/18 16:20 B-Natriuretic Peptide 3600.0 pg/mL (5.0-100.0) H 10/31/18 10:45 Total Protein 6.7 gm/dL (6.0-8.3) 10/31/18 10:45 Albumin 3.6 gm/dL (3.7-5.3) L 10/31/18 10:45 Globulin 3.1 gm/dL 10/31/18 10:45 Albumin/Globulin Ratio 1.2 (1.0-1.8) 10/31/18 10:45 Triglycerides 57 mg/dL (<150) 10/25/18 16:20 Cholesterol 134 mg/dL (<200) 10/25/18 16:20 LDL Cholesterol Direct 39 mg/dL (75-193) L 10/25/18 16:20 HDL Cholesterol 66 mg/dL (23-92) 10/25/18 16:20 - Physical Exam Vitals and I&O: Vital Signs Temp 98.5 F 10/31/18 12:00 Pulse 90 10/31/18 12:28 Resp 20 10/31/18 12:00 BP 135/79 10/31/18 12:00 Pulse Ox 94 10/31/18 12:00 Intake & Output 10/30/18 10/31/18 10/31/18 18:59 06:59 18:59 Intake Total 600 125 Balance 600 125 Weight (lbs) 77.111 kg 77.111 kg 77.111 kg Intake: Oral 600 125 Other: # Voids 2 1 # Bowel Movements 1 Stool Characteristics Soft Soft Soft Brown Brown Brown Weight Source Bedscale Bedscale Bedscale Active Medications: Current Medications Acetaminophen (Tylenol) 325 mg PO Q4H PRN PRN Reason: Pain (Mild) Stop: 12/25/18 07:51 Last Admin: 10/30/18 23:18 Dose: 325 mg Albuterol/Ipratropium (Duoneb Neb) 3 ml HHN Q2HRT PRN PRN Reason: Wheezing Stop: 12/25/18 07:51 Albuterol/Ipratropium (Duoneb Neb) 3 ml HHN Q4H PRN PRN Reason: Wheezing Stop: 12/25/18 07:51 Carvedilol (Coreg) 12.5 mg PO BID [facility] Stop: 12/27/18 14:14 Last Admin: 10/31/18 10:10 Dose: Not Given Diltiazem HCl (Cardizem) 20 mg IVP Q4H PRN PRN Reason: HR Greater than 130 per min Stop: 12/27/18 14:07 Last Admin: 10/28/18 14:20 Dose: 20 mg Diltiazem HCl (Cardizem) 60 mg PO Q6HR [facility] Stop: 12/27/18 17:59 Last Admin: 10/31/18 12:28 Dose: Not Given Epoetin Jordi (Epogen) 10,000 units SUBQ TuThSa [facility] Stop: 12/28/18 15:59 Last Admin: 10/29/18 17:12 Dose: 10,000 units Hydromorphone HCl (Dilaudid) 1 mg IVP Q3H PRN PRN Reason: MODERATE PAIN Stop: 12/25/18 17:33 Hydromorphone HCl (Dilaudid) 2 mg IVP Q4HR PRN PRN Reason: Severe Pain Stop: 12/28/18 10:59 Last Admin: 10/31/18 08:21 Dose: 2 mg Quetiapine Fumarate (Seroquel) 25 mg PO BID PRN; Protocol PRN Reason: Agitation Stop: 12/25/18 16:59 Last Admin: 10/30/18 23:19 Dose: 25 mg General: Alert, No acute distress HEENT: Atraumatic Neck: JVD, Other (+ DIALYSIS CATHETER) Cardiovascular: Regular rate, Normal S1, Normal S2, Systolic murmurs Lungs: Clear to auscultation (rales) Abdomen: Bowel sounds, Soft, Other (organomegaly) Extremities: Edema (mild pedal edema) Neurological: Normal speech, Strength at 5/5 X4 ext, Normal tone, Cranial nerves 3-12 NL, Reflexes 2+ - Procedures Procedures: Procedures Procedure Code Date PERFORMANCE OF URINARY FILTRATION, <6 HRS/DAY [id number] 09/27/18 TRANSFUSE NONAUT RED BLOOD CELLS IN PERIPH VEIN, PERC 60186H8 09/27/18 Assessment/Plan - Assessment Assessment: Congestive heart failure diastolic dysfunction acute Hypertension end-stage renal disease on dialysis Lipidemia Please mellitus type II Osteoporosis - Plan Plan: Continue dialysis with ultrafiltration Nutritional Asmnt/Malnutr-PDOC - Dietary Evaluation Malnutrition Findings (Please click <Entered> for more info): Nutritional Asmnt/Malnutrition Start: 10/26/18 11: 42 Text: Status: Complete Freq: Protocol: Document 10/26/18 11:42 LCTOSHA (Rec: 10/26/18 11:56 LCTOSHA [email or web address]) Nutritional Asmnt/Malnutrition Patient General Information Nutritional Screening High Risk Consult Diagnosis renal failure, CHF Pertinent Medical Hx/Surgical Hx HTN, DM, CAD, CHF, asthma/COPD , dyslipidemia, ESRD Subjective Information Pt has ESRD on dialysis noted. Pt seen sitting in dayan-chair , awake but appeared weak and tired. Pt RN, pt has good appetite and ate 100% of breakfast in the morning. Consult received for admitting glucose 361. Not able to provide diabetic education at this time d/t pt weakness. Current Diet Order/ Nutrition Support renal Pertinent Medications reviewed Pertinent Labs 10/26 BUN 97, Cr 5.9, glucose 291 10/25 BUN 84, Cr 5.4, Glucose 361 Nutritional Hx/Data Height 1.63 m Height (Calculated Centimeters) 162.6 Current Weight (lbs) 72.121 kg Weight (Calculated Kilograms) 72.1 Weight (Calculated Grams) 75826.2 [place] Body Weight 120 Body Mass Index (BMI) 27.3 Weight Status Overweight GI Symptoms GI Symptoms None Last BM not indicated Difficult in: None Skin Integrity/Comment: skin tear to left knee, DRY FLAKKY SKIN yohana 13 Current %PO Good (75-100%) Estimated Nutritional Goals Calories/Kcals/Kg 30-35 IBW 59kg Kcals Calculated 0387-3424 Protein g/k.2-1.4 Protein Calculated 71-82 Fluid: ml per MD Nutritional Problem 1. Problem Problem altered nutrition related labs Etiology renal dysfunction and hyperglycemia Signs/Symptoms: BUN 84-97, Cr 5.4-5.9, glucose 291-361 Malnutrition Alert Is there a minimum of two criteria No selected? Query Text:Check all the applicable criteria. A minimum of two criteria are recommended for diagnosis of either severe or non-severe malnutrition. Malnutrition Related to Morbid Obesity Malnutrition related to morbid obesity No Intervention/Recommendation Comments 1. Continue with renal diet as ordered, adjust protein level to 80g for hemodialysis. Recommend adding CCHO-60gm diet for optimal glycemic control. 2. Monitor PO intake, wt, labs and skin integrity 3. F/U as high risk in 2-3 days Expected Outcomes/Goals Expected Outcomes/Goals 1. PO intake to meet at least 75% of nutritional needs. 2. Wt stability, skin to remain intact, labs to approach WNL.
--- NOTE | 2018-10-31 13:42 | Internal Medicine Prog Note ---
Internal Medicine Subjective - Subjective Service Date: 10/31/18 Patient seen and examined:: with staff Patient is:: awake, agitated, confused, other (no sob, had hd today) Patient Complaints of:: congestion, cough Per staff patient has:: no adverse event, no episodes of fall, tolerating meds Internal Medicine Objective - Results Result Diagrams: 10/31/18 10:45 10/31/18 10:45 Recent Labs: Laboratory Last Values WBC 5.8 Th/cmm (4.8-10.8) 10/31/18 10:45 RBC 3.32 Mil/cmm (3.80-5.10) L 10/31/18 10:45 Hgb 9.0 gm/dL (12-16) L 10/31/18 10:45 Hct 27.9 % (41.0-60) L 10/31/18 10:45 MCV 84.2 fl (81-100) 10/31/18 10:45 MCH 27.0 pg (27.0-31.0) 10/31/18 10:45 MCHC Differential 32.0 pg (28.0-36.0) 10/31/18 10:45 RDW 19.9 % (11.5-20.0) 10/31/18 10:45 Plt Count 91 Th/cmm (150-400) L 10/31/18 10:45 MPV 7.8 fl 10/31/18 10:45 Add Manual Diff YES 10/31/18 10:45 Neutrophils % 63.2 % (40.0-80.0) 10/30/18 05:00 Band Neutrophils % 0 % (0-10) 10/31/18 10:45 Lymphocytes % 20.8 % (20.0-50.0) 10/30/18 05:00 Monocytes % 12.3 % (2.0-10.0) H 10/30/18 05:00 Eosinophils % 2.7 % (0.0-5.0) 10/30/18 05:00 Basophils % 1.0 % (0.0-2.0) 10/30/18 05:00 Neutrophils (Manual) 68 % (40-80) 10/31/18 10:45 Lymphocytes 15 % (20-50) L 10/31/18 10:45 Monocytes 14 % (2-10) H 10/31/18 10:45 Eosinophils 3 % (0-5) 10/31/18 10:45 Basophils 0 % (0-3) 10/31/18 10:45 Platelet Estimate ADEQUATE (NORMAL) 10/25/18 16:20 Anisocytosis 1+ 10/26/18 05:35 PT 12.4 SECONDS (9.5-11.5) H 10/25/18 16:20 INR 1.20 (0.5-1.4) 10/25/18 16:20 PTT (Actin FS) 26.5 SECONDS (26.0-38.0) 10/25/18 16:20 D-Dimer 1450 ng/mL (100-400) H 10/25/18 16:20 Sodium 138 mEq/L (136-145) 10/31/18 10:45 Potassium 4.4 mEq/L (3.5-5.1) 10/31/18 10:45 Chloride 97 mEq/L (98-107) L 10/31/18 10:45 Carbon Dioxide 27.3 mEq/L (21.0-31.0) 10/31/18 10:45 Anion Gap 18.1 (7.0-16.0) H 10/31/18 10:45 BUN 54 mg/dL (7-25) H 10/31/18 10:45 Creatinine 5.9 mg/dL (0.6-1.2) H* 10/31/18 10:45 Est GFR ( Amer) 9.3 ml/min (>90) 10/31/18 10:45 Est GFR (Non-Af Amer) 7.7 ml/min 10/31/18 10:45 BUN/Creatinine Ratio 9.2 10/31/18 10:45 Glucose 127 mg/dL (70-105) H 10/31/18 10:45 Whole Bld Lactic Acid 1.33 mmol/L (0.60-1.99) 10/25/18 16:20 Calcium 8.7 mg/dL (8.6-10.3) 10/31/18 10:45 Total Bilirubin 0.5 mg/dL (0.3-1.0) 10/31/18 10:45 AST 14 U/L (13-39) 10/31/18 10:45 ALT 6 U/L (7-52) L 10/31/18 10:45 Alkaline Phosphatase 150 U/L (34-104) H 10/31/18 10:45 Creatine Kinase 24 U/L (30-223) L 10/25/18 16:20 Troponin I 0.12 ng/mL (0.01-0.05) H* 10/25/18 16:20 B-Natriuretic Peptide 3600.0 pg/mL (5.0-100.0) H 10/31/18 10:45 Total Protein 6.7 gm/dL (6.0-8.3) 10/31/18 10:45 Albumin 3.6 gm/dL (3.7-5.3) L 10/31/18 10:45 Globulin 3.1 gm/dL 10/31/18 10:45 Albumin/Globulin Ratio 1.2 (1.0-1.8) 10/31/18 10:45 Triglycerides 57 mg/dL (<150) 10/25/18 16:20 Cholesterol 134 mg/dL (<200) 10/25/18 16:20 LDL Cholesterol Direct 39 mg/dL (75-193) L 10/25/18 16:20 HDL Cholesterol 66 mg/dL (23-92) 10/25/18 16:20 - Physical Exam Vitals and I&O: Vital Signs Temp 98.5 F 10/31/18 12:00 Pulse 90 10/31/18 12:28 Resp 20 10/31/18 12:00 BP 135/79 10/31/18 12:00 Pulse Ox 94 10/31/18 12:00 Intake & Output 10/30/18 10/31/18 10/31/18 18:59 06:59 18:59 Intake Total 600 125 Balance 600 125 Weight (lbs) 77.111 kg 77.111 kg 77.111 kg Intake: Oral 600 125 Other: # Voids 2 1 # Bowel Movements 1 Stool Characteristics Soft Soft Soft Brown Brown Brown Weight Source Bedscale Bedscale Bedscale Active Medications: Current Medications Acetaminophen (Tylenol) 325 mg PO Q4H PRN PRN Reason: Pain (Mild) Stop: 12/25/18 07:51 Last Admin: 10/30/18 23:18 Dose: 325 mg Albuterol/Ipratropium (Duoneb Neb) 3 ml HHN Q2HRT PRN PRN Reason: Wheezing Stop: 12/25/18 07:51 Albuterol/Ipratropium (Duoneb Neb) 3 ml HHN Q4H PRN PRN Reason: Wheezing Stop: 12/25/18 07:51 Carvedilol (Coreg) 12.5 mg PO BID [facility] Stop: 12/27/18 14:14 Last Admin: 10/31/18 10:10 Dose: Not Given Diltiazem HCl (Cardizem) 20 mg IVP Q4H PRN PRN Reason: HR Greater than 130 per min Stop: 12/27/18 14:07 Last Admin: 10/28/18 14:20 Dose: 20 mg Diltiazem HCl (Cardizem) 60 mg PO Q6HR HONEY Stop: 12/27/18 17:59 Last Admin: 10/31/18 12:28 Dose: Not Given Epoetin Jordi (Epogen) 10,000 units SUBQ TuThSa HONEY Stop: 12/28/18 15:59 Last Admin: 10/29/18 17:12 Dose: 10,000 units Hydromorphone HCl (Dilaudid) 1 mg IVP Q3H PRN PRN Reason: MODERATE PAIN Stop: 12/25/18 17:33 Hydromorphone HCl (Dilaudid) 2 mg IVP Q4HR PRN PRN Reason: Severe Pain Stop: 12/28/18 10:59 Last Admin: 10/31/18 13:25 Dose: 2 mg Quetiapine Fumarate (Seroquel) 25 mg PO BID PRN; Protocol PRN Reason: Agitation Stop: 12/25/18 16:59 Last Admin: 10/31/18 13:24 Dose: 25 mg Physical Exam: Patient's blood pressure is stable, no new complaints reported, less shortness of breath. General: appears older HEENT: NC/AT, PERRLA Neck: Supple Lungs: congested, other (cough, mild sob.) Cardiovascular: RRR, Normal S1, Normal S2 Abdomen: non-tender, non-distended Extremities: clear Neurological: no change, alert - Procedures Procedures: Procedures Procedure Code Date PERFORMANCE OF URINARY FILTRATION, <6 HRS/DAY [id number] 09/27/18 TRANSFUSE NONAUT RED BLOOD CELLS IN PERIPH VEIN, PERC 22827R5 09/27/18 Internal Medicine Assmt/Plan - Assessment Assessment: Mild sob acute febrile illness cough and congestion asthma esrd, on dialysis chf cad dm htn - Plan Plan: iv antibiotic monitor vitals, fever control as per order sheet Nutritional Asmnt/Malnutr-PDOC - Dietary Evaluation Malnutrition Findings (Please click <Entered> for more info): Nutritional Asmnt/Malnutrition Start: 10/26/18 11: 42 Text: Status: Complete Freq: Protocol: Document 10/26/18 11:42 SOHAIL (Rec: 10/26/18 11:56 SOHAIL [id number]) Nutritional Asmnt/Malnutrition Patient General Information Nutritional Screening High Risk Consult Diagnosis renal failure, CHF Pertinent Medical Hx/Surgical Hx HTN, DM, CAD, CHF, asthma/COPD , dyslipidemia, ESRD Subjective Information Pt has ESRD on dialysis noted. Pt seen sitting in dayan-chair , awake but appeared weak and tired. Pt RN, pt has good appetite and ate 100% of breakfast in the morning. Consult received for admitting glucose 361. Not able to provide diabetic education at this time d/t pt weakness. Current Diet Order/ Nutrition Support renal Pertinent Medications reviewed Pertinent Labs 10/26 BUN 97, Cr 5.9, glucose 291 10/25 BUN 84, Cr 5.4, Glucose 361 Nutritional Hx/Data Height 1.63 m Height (Calculated Centimeters) 162.6 Current Weight (lbs) 72.121 kg Weight (Calculated Kilograms) 72.1 Weight (Calculated Grams) 20240.2 [place] Body Weight 120 Body Mass Index (BMI) 27.3 Weight Status Overweight GI Symptoms GI Symptoms None Last BM not indicated Difficult in: None Skin Integrity/Comment: skin tear to left knee, DRY FLAKKY SKIN yohana 13 Current %PO Good (75-100%) Estimated Nutritional Goals Calories/Kcals/Kg 30-35 IBW 59kg Kcals Calculated 9794-9400 Protein g/k.2-1.4 Protein Calculated 71-82 Fluid: ml per MD Nutritional Problem 1. Problem Problem altered nutrition related labs Etiology renal dysfunction and hyperglycemia Signs/Symptoms: BUN 84-97, Cr 5.4-5.9, glucose 291-361 Malnutrition Alert Is there a minimum of two criteria No selected? Query Text:Check all the applicable criteria. A minimum of two criteria are recommended for diagnosis of either severe or non-severe malnutrition. Malnutrition Related to Morbid Obesity Malnutrition related to morbid obesity No Intervention/Recommendation Comments 1. Continue with renal diet as ordered, adjust protein level to 80g for hemodialysis. Recommend adding CCHO-60gm diet for optimal glycemic control. 2. Monitor PO intake, wt, labs and skin integrity 3. F/U as high risk in 2-3 days Expected Outcomes/Goals Expected Outcomes/Goals 1. PO intake to meet at least 75% of nutritional needs. 2. Wt stability, skin to remain intact, labs to approach WNL.
[2018-10-31] MEDS: Diltiazem 5 mg/mL 5mL Vial IVP PRN (14:54)
--- NOTE | 2018-10-31 15:34 | General Progress Note ---
Subjective - Review of Systems Service Date: 10/31/18 Subjective: initially refusing dialysis but seems to agree when suggested 2 1/2 hrs primarily for fluid corina sheree Objective - Results Result Diagrams: 10/31/18 10:45 10/31/18 10:45 Recent Labs: Laboratory Last Values WBC 5.8 Th/cmm (4.8-10.8) 10/31/18 10:45 RBC 3.32 Mil/cmm (3.80-5.10) L 10/31/18 10:45 Hgb 9.0 gm/dL (12-16) L 10/31/18 10:45 Hct 27.9 % (41.0-60) L 10/31/18 10:45 MCV 84.2 fl (81-100) 10/31/18 10:45 MCH 27.0 pg (27.0-31.0) 10/31/18 10:45 MCHC Differential 32.0 pg (28.0-36.0) 10/31/18 10:45 RDW 19.9 % (11.5-20.0) 10/31/18 10:45 Plt Count 91 Th/cmm (150-400) L 10/31/18 10:45 MPV 7.8 fl 10/31/18 10:45 Add Manual Diff YES 10/31/18 10:45 Neutrophils % 63.2 % (40.0-80.0) 10/30/18 05:00 Band Neutrophils % 0 % (0-10) 10/31/18 10:45 Lymphocytes % 20.8 % (20.0-50.0) 10/30/18 05:00 Monocytes % 12.3 % (2.0-10.0) H 10/30/18 05:00 Eosinophils % 2.7 % (0.0-5.0) 10/30/18 05:00 Basophils % 1.0 % (0.0-2.0) 10/30/18 05:00 Neutrophils (Manual) 68 % (40-80) 10/31/18 10:45 Lymphocytes 15 % (20-50) L 10/31/18 10:45 Monocytes 14 % (2-10) H 10/31/18 10:45 Eosinophils 3 % (0-5) 10/31/18 10:45 Basophils 0 % (0-3) 10/31/18 10:45 Platelet Estimate ADEQUATE (NORMAL) 10/25/18 16:20 Anisocytosis 1+ 10/26/18 05:35 PT 12.4 SECONDS (9.5-11.5) H 10/25/18 16:20 INR 1.20 (0.5-1.4) 10/25/18 16:20 PTT (Actin FS) 26.5 SECONDS (26.0-38.0) 10/25/18 16:20 D-Dimer 1450 ng/mL (100-400) H 10/25/18 16:20 Sodium 138 mEq/L (136-145) 10/31/18 10:45 Potassium 4.4 mEq/L (3.5-5.1) 10/31/18 10:45 Chloride 97 mEq/L (98-107) L 10/31/18 10:45 Carbon Dioxide 27.3 mEq/L (21.0-31.0) 10/31/18 10:45 Anion Gap 18.1 (7.0-16.0) H 10/31/18 10:45 BUN 54 mg/dL (7-25) H 10/31/18 10:45 Creatinine 5.9 mg/dL (0.6-1.2) H* 10/31/18 10:45 Est GFR ( Amer) 9.3 ml/min (>90) 10/31/18 10:45 Est GFR (Non-Af Amer) 7.7 ml/min 10/31/18 10:45 BUN/Creatinine Ratio 9.2 10/31/18 10:45 Glucose 127 mg/dL (70-105) H 10/31/18 10:45 Whole Bld Lactic Acid 1.33 mmol/L (0.60-1.99) 10/25/18 16:20 Calcium 8.7 mg/dL (8.6-10.3) 10/31/18 10:45 Total Bilirubin 0.5 mg/dL (0.3-1.0) 10/31/18 10:45 AST 14 U/L (13-39) 10/31/18 10:45 ALT 6 U/L (7-52) L 10/31/18 10:45 Alkaline Phosphatase 150 U/L (34-104) H 10/31/18 10:45 Creatine Kinase 24 U/L (30-223) L 10/25/18 16:20 Troponin I 0.12 ng/mL (0.01-0.05) H* 10/25/18 16:20 B-Natriuretic Peptide 3600.0 pg/mL (5.0-100.0) H 10/31/18 10:45 Total Protein 6.7 gm/dL (6.0-8.3) 10/31/18 10:45 Albumin 3.6 gm/dL (3.7-5.3) L 10/31/18 10:45 Globulin 3.1 gm/dL 10/31/18 10:45 Albumin/Globulin Ratio 1.2 (1.0-1.8) 10/31/18 10:45 Triglycerides 57 mg/dL (<150) 10/25/18 16:20 Cholesterol 134 mg/dL (<200) 10/25/18 16:20 LDL Cholesterol Direct 39 mg/dL (75-193) L 10/25/18 16:20 HDL Cholesterol 66 mg/dL (23-92) 10/25/18 16:20 - Physical Exam Vitals and I&O: Vital Signs Temp 98.5 F 10/31/18 12:00 Pulse 135 10/31/18 14:54 Resp 20 10/31/18 12:00 BP 135/79 10/31/18 12:00 Pulse Ox 94 10/31/18 12:00 Intake & Output 10/30/18 10/31/18 10/31/18 18:59 06:59 18:59 Intake Total 600 125 Balance 600 125 Weight (lbs) 77.111 kg 77.111 kg 77.111 kg Intake: Oral 600 125 Other: # Voids 2 1 # Bowel Movements 1 Stool Characteristics Soft Soft Soft Brown Brown Brown Weight Source Bedscale Bedscale Bedscale Active Medications: Current Medications Acetaminophen (Tylenol) 325 mg PO Q4H PRN PRN Reason: Pain (Mild) Stop: 12/25/18 07:51 Last Admin: 10/30/18 23:18 Dose: 325 mg Albuterol/Ipratropium (Duoneb Neb) 3 ml HHN Q2HRT PRN PRN Reason: Wheezing Stop: 12/25/18 07:51 Albuterol/Ipratropium (Duoneb Neb) 3 ml HHN Q4H PRN PRN Reason: Wheezing Stop: 12/25/18 07:51 Carvedilol (Coreg) 12.5 mg PO BID [facility] Stop: 12/27/18 14:14 Last Admin: 10/31/18 10:10 Dose: Not Given Diltiazem HCl (Cardizem) 20 mg IVP Q4H PRN PRN Reason: HR Greater than 130 per min Stop: 12/27/18 14:07 Last Admin: 10/31/18 14:54 Dose: 20 mg Diltiazem HCl (Cardizem) 60 mg PO Q6HR [facility] Stop: 12/27/18 17:59 Last Admin: 10/31/18 12:28 Dose: Not Given Epoetin Jordi (Epogen) 10,000 units SUBQ TuThSa [facility] Stop: 12/28/18 15:59 Last Admin: 10/29/18 17:12 Dose: 10,000 units Hydromorphone HCl (Dilaudid) 1 mg IVP Q3H PRN PRN Reason: MODERATE PAIN Stop: 12/25/18 17:33 Hydromorphone HCl (Dilaudid) 2 mg IVP Q4HR PRN PRN Reason: Severe Pain Stop: 12/28/18 10:59 Last Admin: 10/31/18 13:25 Dose: 2 mg Quetiapine Fumarate (Seroquel) 25 mg PO BID PRN; Protocol PRN Reason: Agitation Stop: 12/25/18 16:59 Last Admin: 10/31/18 13:24 Dose: 25 mg Physical Exam: Patient is alert but confused heent damian eom neck; supple lungs ; clear with a few rhonchi b/l heart; rr& r abdomen ; positive fluid wave. ext's; 2+ to 3+ edema lower ext's and 1+ edema upper ext"s neuro: no focal findings. - Procedures Procedures: Procedures Procedure Code Date PERFORMANCE OF URINARY FILTRATION, <6 HRS/DAY [id number] 09/27/18 TRANSFUSE NONAUT RED BLOOD CELLS IN PERIPH VEIN, PERC 51969I4 09/27/18 Assessment/Plan - Assessment Assessment: 1 ESRD PLAN FOR HEMODIALYSIS 2 1/2 HRS TODAY AND ROUTINE TOMORROW 2-CHF ; HEMODIALYSIS TO DAY FOR ANASARCA AND CHF 3-ANEMIA OF CKD; EPO/DPO PLUS IRO N Nutritional Asmnt/Malnutr-PDOC - Dietary Evaluation Malnutrition Findings (Please click <Entered> for more info): Nutritional Asmnt/Malnutrition Start: 10/26/18 11: 42 Text: Status: Complete Freq: Protocol: Document 10/26/18 11:42 ANGTOSHA (Rec: 10/26/18 11:56 LCTOSHA [id number]) Nutritional Asmnt/Malnutrition Patient General Information Nutritional Screening High Risk Consult Diagnosis renal failure, CHF Pertinent Medical Hx/Surgical Hx HTN, DM, CAD, CHF, asthma/COPD , dyslipidemia, ESRD Subjective Information Pt has ESRD on dialysis noted. Pt seen sitting in dayan-chair , awake but appeared weak and tired. Pt RN, pt has good appetite and ate 100% of breakfast in the morning. Consult received for admitting glucose 361. Not able to provide diabetic education at this time d/t pt weakness. Current Diet Order/ Nutrition Support renal Pertinent Medications reviewed Pertinent Labs 10/26 BUN 97, Cr 5.9, glucose 291 10/25 BUN 84, Cr 5.4, Glucose 361 Nutritional Hx/Data Height 1.63 m Height (Calculated Centimeters) 162.6 Current Weight (lbs) 72.121 kg Weight (Calculated Kilograms) 72.1 Weight (Calculated Grams) 88308.2 [place] Body Weight 120 Body Mass Index (BMI) 27.3 Weight Status Overweight GI Symptoms GI Symptoms None Last BM not indicated Difficult in: None Skin Integrity/Comment: skin tear to left knee, DRY FLAKKY SKIN yohana 13 Current %PO Good (75-100%) Estimated Nutritional Goals Calories/Kcals/Kg 30-35 IBW 59kg Kcals Calculated 5111-9483 Protein g/k.2-1.4 Protein Calculated 71-82 Fluid: ml per MD Nutritional Problem 1. Problem Problem altered nutrition related labs Etiology renal dysfunction and hyperglycemia Signs/Symptoms: BUN 84-97, Cr 5.4-5.9, glucose 291-361 Malnutrition Alert Is there a minimum of two criteria No selected? Query Text:Check all the applicable criteria. A minimum of two criteria are recommended for diagnosis of either severe or non-severe malnutrition. Malnutrition Related to Morbid Obesity Malnutrition related to morbid obesity No Intervention/Recommendation Comments 1. Continue with renal diet as ordered, adjust protein level to 80g for hemodialysis. Recommend adding CCHO-60gm diet for optimal glycemic control. 2. Monitor PO intake, wt, labs and skin integrity 3. F/U as high risk in 2-3 days Expected Outcomes/Goals Expected Outcomes/Goals 1. PO intake to meet at least 75% of nutritional needs. 2. Wt stability, skin to remain intact, labs to approach WNL.
[2018-11-01] MEDS: HYDROmorphone 2 mg/mL 1mL Vial IVP PRN ×3 (00:12→12:56)
[2018-11-01] MEDS: Diltiazem 30 mg Tab PO SCH ×3 (00:12→13:02)
--- NOTE | 2018-11-01 08:43 | Diagnostic Imaging Report ---
Portable chest x-ray HISTORY: Shortness of breath Compared with prior exam of October 25, 2018, the heart remains enlarged. There is a poor inspiration. The does appear to be degree of pulmonary vascular redistribution consistent with an element of cardiac decompensation. Slight haziness of the lower interstitial lung markings. IMPRESSION: 1. Persistent cardiomegaly along with changes consistent with a degree of congestive heart failure. Clinical correlation is needed.
[2018-11-01] MEDS ORDERED: Venelex 60gm Tube TP SCH (09:00)
[2018-11-01] MEDS: HYDROmorphone 1 mg/mL 1mL Syr IVP PRN ×2 (09:16→16:04)
--- NOTE | 2018-11-01 11:51 | General Progress Note ---
Subjective - Review of Systems Service Date: 11/01/18 Subjective: Patient has less shortness of breath no complaint of chest pain Objective - Results Result Diagrams: 10/31/18 10:45 10/31/18 10:45 Recent Labs: Laboratory Last Values WBC 5.8 Th/cmm (4.8-10.8) 10/31/18 10:45 RBC 3.32 Mil/cmm (3.80-5.10) L 10/31/18 10:45 Hgb 9.0 gm/dL (12-16) L 10/31/18 10:45 Hct 27.9 % (41.0-60) L 10/31/18 10:45 MCV 84.2 fl (81-100) 10/31/18 10:45 MCH 27.0 pg (27.0-31.0) 10/31/18 10:45 MCHC Differential 32.0 pg (28.0-36.0) 10/31/18 10:45 RDW 19.9 % (11.5-20.0) 10/31/18 10:45 Plt Count 91 Th/cmm (150-400) L 10/31/18 10:45 MPV 7.8 fl 10/31/18 10:45 Add Manual Diff YES 10/31/18 10:45 Neutrophils % 63.2 % (40.0-80.0) 10/30/18 05:00 Band Neutrophils % 0 % (0-10) 10/31/18 10:45 Lymphocytes % 20.8 % (20.0-50.0) 10/30/18 05:00 Monocytes % 12.3 % (2.0-10.0) H 10/30/18 05:00 Eosinophils % 2.7 % (0.0-5.0) 10/30/18 05:00 Basophils % 1.0 % (0.0-2.0) 10/30/18 05:00 Neutrophils (Manual) 68 % (40-80) 10/31/18 10:45 Lymphocytes 15 % (20-50) L 10/31/18 10:45 Monocytes 14 % (2-10) H 10/31/18 10:45 Eosinophils 3 % (0-5) 10/31/18 10:45 Basophils 0 % (0-3) 10/31/18 10:45 Platelet Estimate ADEQUATE (NORMAL) 10/25/18 16:20 Anisocytosis 1+ 10/26/18 05:35 PT 12.4 SECONDS (9.5-11.5) H 10/25/18 16:20 INR 1.20 (0.5-1.4) 10/25/18 16:20 PTT (Actin FS) 26.5 SECONDS (26.0-38.0) 10/25/18 16:20 D-Dimer 1450 ng/mL (100-400) H 10/25/18 16:20 Sodium 138 mEq/L (136-145) 10/31/18 10:45 Potassium 4.4 mEq/L (3.5-5.1) 10/31/18 10:45 Chloride 97 mEq/L (98-107) L 10/31/18 10:45 Carbon Dioxide 27.3 mEq/L (21.0-31.0) 10/31/18 10:45 Anion Gap 18.1 (7.0-16.0) H 10/31/18 10:45 BUN 54 mg/dL (7-25) H 10/31/18 10:45 Creatinine 5.9 mg/dL (0.6-1.2) H* 10/31/18 10:45 Est GFR ( Amer) 9.3 ml/min (>90) 10/31/18 10:45 Est GFR (Non-Af Amer) 7.7 ml/min 10/31/18 10:45 BUN/Creatinine Ratio 9.2 10/31/18 10:45 Glucose 127 mg/dL (70-105) H 10/31/18 10:45 Whole Bld Lactic Acid 1.33 mmol/L (0.60-1.99) 10/25/18 16:20 Calcium 8.7 mg/dL (8.6-10.3) 10/31/18 10:45 Total Bilirubin 0.5 mg/dL (0.3-1.0) 10/31/18 10:45 AST 14 U/L (13-39) 10/31/18 10:45 ALT 6 U/L (7-52) L 10/31/18 10:45 Alkaline Phosphatase 150 U/L (34-104) H 10/31/18 10:45 Creatine Kinase 24 U/L (30-223) L 10/25/18 16:20 Troponin I 0.12 ng/mL (0.01-0.05) H* 10/25/18 16:20 B-Natriuretic Peptide 3600.0 pg/mL (5.0-100.0) H 10/31/18 10:45 Total Protein 6.7 gm/dL (6.0-8.3) 10/31/18 10:45 Albumin 3.6 gm/dL (3.7-5.3) L 10/31/18 10:45 Globulin 3.1 gm/dL 10/31/18 10:45 Albumin/Globulin Ratio 1.2 (1.0-1.8) 10/31/18 10:45 Triglycerides 57 mg/dL (<150) 10/25/18 16:20 Cholesterol 134 mg/dL (<200) 10/25/18 16:20 LDL Cholesterol Direct 39 mg/dL (75-193) L 10/25/18 16:20 HDL Cholesterol 66 mg/dL (23-92) 10/25/18 16:20 - Physical Exam Vitals and I&O: Vital Signs Temp 97.9 F 11/01/18 11:40 Pulse 72 11/01/18 11:40 Resp 20 11/01/18 11:40 BP 135/67 11/01/18 11:40 Pulse Ox 98 11/01/18 11:40 Intake & Output 10/31/18 11/01/18 11/01/18 18:59 06:59 18:59 Intake Total 500 100 Balance 500 100 Weight (lbs) 77.111 kg 77.111 kg 77.111 kg Intake: Oral 500 100 Other: # Voids 3 3 # Bowel Movements 1 Stool Characteristics Soft Soft Soft Brown Brown Brown Weight Source Bedscale Bedscale Bedscale Active Medications: Current Medications Acetaminophen (Tylenol) 325 mg PO Q4H PRN PRN Reason: Pain (Mild) Stop: 12/25/18 07:51 Last Admin: 10/30/18 23:18 Dose: 325 mg Albuterol/Ipratropium (Duoneb Neb) 3 ml HHN Q2HRT PRN PRN Reason: Wheezing Stop: 12/25/18 07:51 Last Admin: 10/31/18 20:16 Dose: 3 ml Albuterol/Ipratropium (Duoneb Neb) 3 ml HHN Q4H PRN PRN Reason: Wheezing Stop: 12/25/18 07:51 Bisacodyl (Dulcolax 10 Mg Supp) 10 mg RC DAILY PRN PRN Reason: Constipation Stop: 12/31/18 05:21 Calcium Acetate (Phoslo) 1,334 mg PO TIDWM [facility] Stop: 12/31/18 07:59 Last Admin: 11/01/18 09:09 Dose: 1,334 mg Carvedilol (Coreg) 12.5 mg PO BID [facility] Stop: 12/27/18 14:14 Last Admin: 11/01/18 09:32 Dose: 12.5 mg [place] Oil/[place] Balsam/Trypsin (Venelex) 1 appl TP Q12HR [facility] Stop: 12/31/18 08:59 Last Admin: 11/01/18 09:17 Dose: 1 appl Diltiazem HCl (Cardizem) 20 mg IVP Q4H PRN PRN Reason: HR Greater than 130 per min Stop: 12/27/18 14:07 Last Admin: 10/31/18 14:54 Dose: 20 mg Diltiazem HCl (Cardizem) 60 mg PO Q6HR [facility] Stop: 12/27/18 17:59 Last Admin: 11/01/18 06:51 Dose: 60 mg Epoetin Jordi (Epogen) 10,000 units SUBQ TuThSa [facility] Stop: 12/28/18 15:59 Last Admin: 10/29/18 17:12 Dose: 10,000 units Hydralazine HCl (Apresoline) 100 mg PO Q12HR [facility] Stop: 12/31/18 08:59 Last Admin: 11/01/18 09:35 Dose: Not Given Hydromorphone HCl (Dilaudid) 1 mg IVP Q3H PRN PRN Reason: MODERATE PAIN Stop: 12/25/18 17:33 Last Admin: 11/01/18 09:16 Dose: 1 mg Hydromorphone HCl (Dilaudid) 2 mg IVP Q4HR PRN PRN Reason: Severe Pain Stop: 12/28/18 10:59 Last Admin: 11/01/18 06:50 Dose: 2 mg Ibuprofen (Motrin) 600 mg PO Q4H PRN PRN Reason: Pain (Moderate) Stop: 12/31/18 05:21 Loperamide HCl (Imodium) 2 mg PO Q4HR PRN PRN Reason: Diarrhea Stop: 12/31/18 05:21 Losartan Potassium (Cozaar) 50 mg PO BID [facility] Stop: 12/31/18 08:59 Last Admin: 11/01/18 09:41 Dose: Not Given Quetiapine Fumarate (Seroquel) 25 mg PO BID PRN; Protocol PRN Reason: Agitation Stop: 12/25/18 16:59 Last Admin: 11/01/18 00:12 Dose: 25 mg General: Alert, No acute distress HEENT: Atraumatic Neck: JVD, Other (+ DIALYSIS CATHETER) Cardiovascular: Regular rate, Normal S1, Normal S2, Systolic murmurs Lungs: Clear to auscultation (rales) Abdomen: Bowel sounds, Soft, Other (organomegaly) Extremities: Edema (mild pedal edema) Neurological: Normal speech, Strength at 5/5 X4 ext, Normal tone, Cranial nerves 3-12 NL, Reflexes 2+ - Procedures Procedures: Procedures Procedure Code Date PERFORMANCE OF URINARY FILTRATION, <6 HRS/DAY [id number] 09/27/18 TRANSFUSE NONAUT RED BLOOD CELLS IN PERIPH VEIN, PERC 45174M7 09/27/18 Assessment/Plan - Assessment Assessment: Congestive heart failure diastolic dysfunction acute Hypertension end-stage renal disease on dialysis Lipidemia Please mellitus type II Osteoporosis COPD Iron deficiency anemia - Plan Plan: Continue dialysis with ultrafiltration Patient stable for discharge Nutritional Asmnt/Malnutr-PDOC - Dietary Evaluation Malnutrition Findings (Please click <Entered> for more info): Nutritional Asmnt/Malnutrition Start: 10/26/18 11: 42 Text: Status: Complete Freq: Protocol: Document 10/26/18 11:42 LCHENG (Rec: 10/26/18 11:56 [email or web address]) Nutritional Asmnt/Malnutrition Patient General Information Nutritional Screening High Risk Consult Diagnosis renal failure, CHF Pertinent Medical Hx/Surgical Hx HTN, DM, CAD, CHF, asthma/COPD , dyslipidemia, ESRD Subjective Information Pt has ESRD on dialysis noted. Pt seen sitting in dayan-chair , awake but appeared weak and tired. Pt RN, pt has good appetite and ate 100% of breakfast in the morning. Consult received for admitting glucose 361. Not able to provide diabetic education at this time d/t pt weakness. Current Diet Order/ Nutrition Support renal Pertinent Medications reviewed Pertinent Labs 10/26 BUN 97, Cr 5.9, glucose 291 10/25 BUN 84, Cr 5.4, Glucose 361 Nutritional Hx/Data Height 1.63 m Height (Calculated Centimeters) 162.6 Current Weight (lbs) 72.121 kg Weight (Calculated Kilograms) 72.1 Weight (Calculated Grams) 34738.2 [place] Body Weight 120 Body Mass Index (BMI) 27.3 Weight Status Overweight GI Symptoms GI Symptoms None Last BM not indicated Difficult in: None Skin Integrity/Comment: skin tear to left knee, DRY FLAKKY SKIN yohana 13 Current %PO Good (75-100%) Estimated Nutritional Goals Calories/Kcals/Kg 30-35 IBW 59kg Kcals Calculated 6664-3540 Protein g/k.2-1.4 Protein Calculated 71-82 Fluid: ml per MD Nutritional Problem 1. Problem Problem altered nutrition related labs Etiology renal dysfunction and hyperglycemia Signs/Symptoms: BUN 84-97, Cr 5.4-5.9, glucose 291-361 Malnutrition Alert Is there a minimum of two criteria No selected? Query Text:Check all the applicable criteria. A minimum of two criteria are recommended for diagnosis of either severe or non-severe malnutrition. Malnutrition Related to Morbid Obesity Malnutrition related to morbid obesity No Intervention/Recommendation Comments 1. Continue with renal diet as ordered, adjust protein level to 80g for hemodialysis. Recommend adding CCHO-60gm diet for optimal glycemic control. 2. Monitor PO intake, wt, labs and skin integrity 3. F/U as high risk in 2-3 days Expected Outcomes/Goals Expected Outcomes/Goals 1. PO intake to meet at least 75% of nutritional needs. 2. Wt stability, skin to remain intact, labs to approach WNL.
[2018-11-01] MEDS: Epoetin Alfa 20000 Units/mL Vial SUBQ SCH (16:01)
--- NOTE | 2018-11-01 17:00 | Internal Medicine Prog Note ---
Internal Medicine Subjective - Subjective Service Date: 11/01/18 Patient is:: awake, agitated, confused, other Patient Complaints of:: congestion, cough Per staff patient has:: no adverse event, no episodes of fall, tolerating meds Internal Medicine Objective - Results Result Diagrams: 10/31/18 10:45 10/31/18 10:45 Recent Labs: Laboratory Last Values WBC 5.8 Th/cmm (4.8-10.8) 10/31/18 10:45 RBC 3.32 Mil/cmm (3.80-5.10) L 10/31/18 10:45 Hgb 9.0 gm/dL (12-16) L 10/31/18 10:45 Hct 27.9 % (41.0-60) L 10/31/18 10:45 MCV 84.2 fl (81-100) 10/31/18 10:45 MCH 27.0 pg (27.0-31.0) 10/31/18 10:45 MCHC Differential 32.0 pg (28.0-36.0) 10/31/18 10:45 RDW 19.9 % (11.5-20.0) 10/31/18 10:45 Plt Count 91 Th/cmm (150-400) L 10/31/18 10:45 MPV 7.8 fl 10/31/18 10:45 Add Manual Diff YES 10/31/18 10:45 Neutrophils % 63.2 % (40.0-80.0) 10/30/18 05:00 Band Neutrophils % 0 % (0-10) 10/31/18 10:45 Lymphocytes % 20.8 % (20.0-50.0) 10/30/18 05:00 Monocytes % 12.3 % (2.0-10.0) H 10/30/18 05:00 Eosinophils % 2.7 % (0.0-5.0) 10/30/18 05:00 Basophils % 1.0 % (0.0-2.0) 10/30/18 05:00 Neutrophils (Manual) 68 % (40-80) 10/31/18 10:45 Lymphocytes 15 % (20-50) L 10/31/18 10:45 Monocytes 14 % (2-10) H 10/31/18 10:45 Eosinophils 3 % (0-5) 10/31/18 10:45 Basophils 0 % (0-3) 10/31/18 10:45 Platelet Estimate ADEQUATE (NORMAL) 10/25/18 16:20 Anisocytosis 1+ 10/26/18 05:35 PT 12.4 SECONDS (9.5-11.5) H 10/25/18 16:20 INR 1.20 (0.5-1.4) 10/25/18 16:20 PTT (Actin FS) 26.5 SECONDS (26.0-38.0) 10/25/18 16:20 D-Dimer 1450 ng/mL (100-400) H 10/25/18 16:20 Sodium 138 mEq/L (136-145) 10/31/18 10:45 Potassium 4.4 mEq/L (3.5-5.1) 10/31/18 10:45 Chloride 97 mEq/L (98-107) L 10/31/18 10:45 Carbon Dioxide 27.3 mEq/L (21.0-31.0) 10/31/18 10:45 Anion Gap 18.1 (7.0-16.0) H 10/31/18 10:45 BUN 54 mg/dL (7-25) H 10/31/18 10:45 Creatinine 5.9 mg/dL (0.6-1.2) H* 10/31/18 10:45 Est GFR ( Amer) 9.3 ml/min (>90) 10/31/18 10:45 Est GFR (Non-Af Amer) 7.7 ml/min 10/31/18 10:45 BUN/Creatinine Ratio 9.2 10/31/18 10:45 Glucose 127 mg/dL (70-105) H 10/31/18 10:45 Whole Bld Lactic Acid 1.33 mmol/L (0.60-1.99) 10/25/18 16:20 Calcium 8.7 mg/dL (8.6-10.3) 10/31/18 10:45 Total Bilirubin 0.5 mg/dL (0.3-1.0) 10/31/18 10:45 AST 14 U/L (13-39) 10/31/18 10:45 ALT 6 U/L (7-52) L 10/31/18 10:45 Alkaline Phosphatase 150 U/L (34-104) H 10/31/18 10:45 Creatine Kinase 24 U/L (30-223) L 10/25/18 16:20 Troponin I 0.12 ng/mL (0.01-0.05) H* 10/25/18 16:20 B-Natriuretic Peptide 3600.0 pg/mL (5.0-100.0) H 10/31/18 10:45 Total Protein 6.7 gm/dL (6.0-8.3) 10/31/18 10:45 Albumin 3.6 gm/dL (3.7-5.3) L 10/31/18 10:45 Globulin 3.1 gm/dL 10/31/18 10:45 Albumin/Globulin Ratio 1.2 (1.0-1.8) 10/31/18 10:45 Triglycerides 57 mg/dL (<150) 10/25/18 16:20 Cholesterol 134 mg/dL (<200) 10/25/18 16:20 LDL Cholesterol Direct 39 mg/dL (75-193) L 10/25/18 16:20 HDL Cholesterol 66 mg/dL (23-92) 10/25/18 16:20 - Physical Exam Vitals and I&O: Vital Signs Temp 97.7 F 11/01/18 16:21 Pulse 84 11/01/18 16:21 Resp 19 11/01/18 16:21 BP 124/73 11/01/18 16:21 Pulse Ox 97 11/01/18 16:21 Intake & Output 10/31/18 11/01/18 11/01/18 18:59 06:59 18:59 Intake Total 500 100 Balance 500 100 Weight (lbs) 170 lb 170 lb 170 lb Intake: Oral 500 100 Other: # Voids 3 3 # Bowel Movements 1 Stool Characteristics Soft Soft Soft Brown Brown Brown Weight Source Bedscale Bedscale Bedscale Active Medications: Current Medications Acetaminophen (Tylenol) 325 mg PO Q4H PRN PRN Reason: Pain (Mild) Stop: 12/25/18 07:51 Last Admin: 10/30/18 23:18 Dose: 325 mg Albuterol/Ipratropium (Duoneb Neb) 3 ml HHN Q2HRT PRN PRN Reason: Wheezing Stop: 12/25/18 07:51 Last Admin: 10/31/18 20:16 Dose: 3 ml Albuterol/Ipratropium (Duoneb Neb) 3 ml HHN Q4H PRN PRN Reason: Wheezing Stop: 12/25/18 07:51 Bisacodyl (Dulcolax 10 Mg Supp) 10 mg RC DAILY PRN PRN Reason: Constipation Stop: 12/31/18 05:21 Calcium Acetate (Phoslo) 1,334 mg PO TIDWM [facility] Stop: 12/31/18 07:59 Last Admin: 11/01/18 16:02 Dose: 1,334 mg Carvedilol (Coreg) 12.5 mg PO BID [facility] Stop: 12/27/18 14:14 Last Admin: 11/01/18 16:02 Dose: 12.5 mg [place] Oil/[place] Balsam/Trypsin (Venelex) 1 appl TP Q12HR [facility] Stop: 12/31/18 08:59 Last Admin: 11/01/18 09:17 Dose: 1 appl Diltiazem HCl (Cardizem) 20 mg IVP Q4H PRN PRN Reason: HR Greater than 130 per min Stop: 12/27/18 14:07 Last Admin: 10/31/18 14:54 Dose: 20 mg Diltiazem HCl (Cardizem) 60 mg PO Q6HR [facility] Stop: 12/27/18 17:59 Last Admin: 11/01/18 13:02 Dose: 60 mg Epoetin Jordi (Epogen) 10,000 units SUBQ TuThSa [facility] Stop: 12/28/18 15:59 Last Admin: 11/01/18 16:01 Dose: 10,000 units Hydralazine HCl (Apresoline) 100 mg PO Q12HR [facility] Stop: 12/31/18 08:59 Last Admin: 11/01/18 09:35 Dose: Not Given Hydromorphone HCl (Dilaudid) 1 mg IVP Q3H PRN PRN Reason: MODERATE PAIN Stop: 12/25/18 17:33 Last Admin: 11/01/18 16:04 Dose: 1 mg Hydromorphone HCl (Dilaudid) 2 mg IVP Q4HR PRN PRN Reason: Severe Pain Stop: 12/28/18 10:59 Last Admin: 11/01/18 12:56 Dose: 2 mg Ibuprofen (Motrin) 600 mg PO Q4H PRN PRN Reason: Pain (Moderate) Stop: 12/31/18 05:21 Loperamide HCl (Imodium) 2 mg PO Q4HR PRN PRN Reason: Diarrhea Stop: 12/31/18 05:21 Losartan Potassium (Cozaar) 50 mg PO BID [facility] Stop: 12/31/18 08:59 Last Admin: 11/01/18 16:03 Dose: 50 mg Quetiapine Fumarate (Seroquel) 25 mg PO BID PRN; Protocol PRN Reason: Agitation Stop: 12/25/18 16:59 Last Admin: 11/01/18 00:12 Dose: 25 mg General: appears older HEENT: NC/AT, PERRLA Neck: Supple Lungs: congested, other (cough, mild sob.) Cardiovascular: RRR, Normal S1, Normal S2 Abdomen: non-tender, non-distended Extremities: clear Neurological: no change, alert - Procedures Procedures: Procedures Procedure Code Date PERFORMANCE OF URINARY FILTRATION, <6 HRS/DAY [id number] 09/27/18 TRANSFUSE NONAUT RED BLOOD CELLS IN PERIPH VEIN, PERC [id number] 09/27/18 Internal Medicine Assmt/Plan - Assessment Assessment: Mild sob acute febrile illness cough and congestion asthma esrd, on dialysis chf cad dm htn - Plan Plan: continue ivabx am labs continue current plan of care Nutritional Asmnt/Malnutr-PDOC - Dietary Evaluation Malnutrition Findings (Please click <Entered> for more info): Nutritional Asmnt/Malnutrition Start: 10/26/18 11: 42 Text: Status: Complete Freq: Protocol: Document 10/26/18 11:42 SOHAIL (Rec: 10/26/18 11:56 LCTOSHA [email or web address]) Nutritional Asmnt/Malnutrition Patient General Information Nutritional Screening High Risk Consult Diagnosis renal failure, CHF Pertinent Medical Hx/Surgical Hx HTN, DM, CAD, CHF, asthma/COPD , dyslipidemia, ESRD Subjective Information Pt has ESRD on dialysis noted. Pt seen sitting in dayan-chair , awake but appeared weak and tired. Pt RN, pt has good appetite and ate 100% of breakfast in the morning. Consult received for admitting glucose 361. Not able to provide diabetic education at this time d/t pt weakness. Current Diet Order/ Nutrition Support renal Pertinent Medications reviewed Pertinent Labs 10/26 BUN 97, Cr 5.9, glucose 291 4/9 BUN 84, Cr 5.4, Glucose 361 Nutritional Hx/Data Height 5 ft 4 in Height (Calculated Centimeters) 162.6 Current Weight (lbs) 159 lb Weight (Calculated Kilograms) 72.1 Weight (Calculated Grams) 23727.2 [place] Body Weight 120 Body Mass Index (BMI) 27.3 Weight Status Overweight GI Symptoms GI Symptoms None Last BM not indicated Difficult in: None Skin Integrity/Comment: skin tear to left knee, DRY FLAKKY SKIN yohana 13 Current %PO Good (75-100%) Estimated Nutritional Goals Calories/Kcals/Kg 30-35 IBW 59kg Kcals Calculated 0678-7802 Protein g/k.2-1.4 Protein Calculated 71-82 Fluid: ml per MD Nutritional Problem 1. Problem Problem altered nutrition related labs Etiology renal dysfunction and hyperglycemia Signs/Symptoms: BUN 84-97, Cr 5.4-5.9, glucose 291-361 Malnutrition Alert Is there a minimum of two criteria No selected? Query Text:Check all the applicable criteria. A minimum of two criteria are recommended for diagnosis of either severe or non-severe malnutrition. Malnutrition Related to Morbid Obesity Malnutrition related to morbid obesity No Intervention/Recommendation Comments 1. Continue with renal diet as ordered, adjust protein level to 80g for hemodialysis. Recommend adding CCHO-60gm diet for optimal glycemic control. 2. Monitor PO intake, wt, labs and skin integrity 3. F/U as high risk in 2-3 days Expected Outcomes/Goals Expected Outcomes/Goals 1. PO intake to meet at least 75% of nutritional needs. 2. Wt stability, skin to remain intact, labs to approach WNL.
--- NOTE | 2018-11-02 00:27 | Progress Notes ---
DATE: 11/01/2018 FOLLOWUP CONSULTATION NOTE Covering for Dr. Ahuja. Case was discussed with staff of the patient, reviewed records. The patient was in the room using the phone, smiling. She has a nurse with her, she was doing dialysis. When talked to her, ____ patient with a history of bipolar disorder, has been on Seroquel 25 mg twice a day and apparently she has been yelling and screaming and mainly because of pain and that the nurse believe that the patient may be liking to get the pain medication and she was in very good mood when I talked to her today, she denies any intent to harm herself or anyone. She denies auditory or visual hallucinations. She was recommend to continue her medication. The patient needs followup with the psychiatrist upon discharge. Thank you very much for allowing me to participate in the care of this most interesting gentleman. JOB# [id number]
== END 2018-11-01 17:30 | DRG 871 ==
LOC: ER 15:31 → TELE 19:06
PROVIDERS: ADMIT Internal Medicine; ATTEND Internal Medicine
PROC: 5A1D70Z Performance of Urinary Filtration, Intermittent, Less than 6 Hours Per Day (ICD-10-PCS; principal; 2018-10-26)
PROC: 5A1D70Z Performance of Urinary Filtration, Intermittent, Less than 6 Hours Per Day (ICD-10-PCS; 2018-10-28)
PROC: 5A1D70Z Performance of Urinary Filtration, Intermittent, Less than 6 Hours Per Day (ICD-10-PCS; 2018-10-29)
PROC: 5A1D70Z Performance of Urinary Filtration, Intermittent, Less than 6 Hours Per Day (ICD-10-PCS; 2018-10-31)
PROC: 5A1D70Z Performance of Urinary Filtration, Intermittent, Less than 6 Hours Per Day (ICD-10-PCS; 2018-11-01)
DX: A41.9 Sepsis, unspecified organism (principal); N18.6 End stage renal disease; J18.9 Pneumonia, unspecified organism; I50.43 Acute on chronic combined systolic (congestive) and diastolic (congestive) heart failure; I13.2 Hypertensive heart and chronic kidney disease with heart failure and with stage 5 chronic kidney disease, or end stage renal disease; J44.0 Chronic obstructive pulmonary disease with (acute) lower respiratory infection; I47.1 Supraventricular tachycardia; I50.9 Heart failure, unspecified; E11.22 Type 2 diabetes mellitus with diabetic chronic kidney disease; I25.10 Atherosclerotic heart disease of native coronary artery without angina pectoris; E78.5 Hyperlipidemia, unspecified; E11.65 Type 2 diabetes mellitus with hyperglycemia; D63.1 Anemia in chronic kidney disease; F41.9 Anxiety disorder, unspecified; F39 Unspecified mood [affective] disorder; D50.9 Iron deficiency anemia, unspecified; M81.0 Age-related osteoporosis without current pathological fracture; I25.119 Atherosclerotic heart disease of native coronary artery with unspecified angina pectoris; Z99.2 Dependence on renal dialysis
CPT/HCPCS: 36415-UA; 71045-TC; 80048-TC; 80053-TC; 80061-TC; 82550-TC; 83036-90; 83605; 83880-TC; 84484-TC; 85007-TC; 85025-TC; 85379-TC; 85610-TC; 85730-TC; 90779; 90937; 93005; 94640; 94760; 96374; 96375; J0885; J1170; J1644; J1815; J1940; J1956; J7030; P9047; Z7610

== ENCOUNTER 2018-11-04 20:41 | Inpatient (IN) | payer MEDICARE, MEDICAID ==
--- NOTE | 2018-11-04 21:33 | ED Physician Chart ---
ED Chief Complaint/HPI - Patient Information Date Seen:: 11/04/18 Time Seen:: 20:41 Chief Complaint:: shortness of breath History of Present Illness:: Patient has shortness of breath for one hour. She also complains of diffuse myalgias. Patient states she last had dialysis 1 week ago. Paramedics said he was told that she last had dialysis 11 days ago. Allergies:: Allergies Allergy/AdvReac Type Severity Reaction Status Date / Time morphine Allergy Verified 09/27/18 15:58 tramadol Allergy Verified 09/27/18 15:58 Vitals:: Vital Signs - 8 hr 11/04/18 20:45 Temp 98.2 F HR 93 RR 12 BP 144/70 O2 Sat % 100 Historian:: Patient ED Review of Systems - Review of Systems General/Constitutional: No fever Skin: No skin lesions, No rash, No bruising Head: No headache, No light-headedness Eyes: No loss of vision, No pain, No diplopia ENT: No earache, No nasal drainage, No sore throat, No tinnitus Neck: No neck pain, No swelling, No thyromegaly, No stiffness, No mass noted Cardio Vascular: No chest pain, No palpitations, No PND, No orthopnea, No edema Pulmonary: SOB, No cough, No sputum, No wheezing GI: No nausea, No vomiting, No diarrhea, No pain, No melena, No hematochezia, No constipation, No hematemesis G/U: No dysuria, No frequency, No hematuria Musculoskeletal: Bone or joint pain, No bone or joint pain, No back pain, Muscle pain Endocrine: No polyuria, No polydipsia Psychiatric: No prior psych history, No depression, No anxiety, No suicidal ideation Hematopoietic: No bruising, No lymphadenopathy Allergic/Immuno: No urticaria, No angioedema Neurological: No syncope, No focal symptoms, No weakness, No paresthesia, No headache, No seizure, No dizziness, No confusion, No vertigo ED Past Medical History - Past Medical History Past Medical History: HTN, CHF, Asthma/COPD, Other (renal failure on dialysis) Family History: Diabetes Melitus, HTN Social History: Non Smoker, No Alcohol Surgical History: other (past systolic) Family Medical History - Family Member Mother History Unknown: Yes ED Physical Exam - Physical Examination General/Constitutional: Awake, Well-developed, well-nourished, Alert, No distress, GCS 15, Non-toxic appearing, Ambulatory Head: Atraumatic Eyes: Lids, conjuctiva normal, PERRL, EOMI Skin: Nl inspection, No rash, No skin lesions, No ecchymosis, Well hydrated, No lymphadenopathy ENMT: External ears, nose nl, Nasal exam nl, Lips, teeth, gums nl Neck: No nuchal rigidity Respiratory: Nl effort/Exclusion, Clear to Auscultation Cardio Vascular: RRR, No murmur, gallop, rubs, NL S1 S2 GI: No tenderness/rebounding/guarding, No organomegaly, No hernia, Normal BS's Extremities: Normal digits & nails ED Labs/Radiology/EKG Results - Lab Results Results: Laboratory Results WBC 5.5 Th/cmm (4.8-10.8) 11/04/18 21:00 RBC 3.06 Mil/cmm (3.80-5.10) L 11/04/18 21:00 Hgb 8.2 gm/dL (12-16) L 11/04/18 21:00 Hct 25.4 % (41.0-60) L 11/04/18 21:00 MCV 83.1 fl (81-100) 11/04/18 21:00 MCH 26.8 pg (27.0-31.0) L 11/04/18 21:00 MCHC Differential 32.3 pg (28.0-36.0) 11/04/18 21:00 RDW 20.3 % (11.5-20.0) H 11/04/18 21:00 Plt Count 174 Th/cmm (150-400) 11/04/18 21:00 MPV 7.9 fl 11/04/18 21:00 Neutrophils % 64.7 % (40.0-80.0) 11/04/18 21:00 Lymphocytes % 19.5 % (20.0-50.0) L 11/04/18 21:00 Monocytes % 14.0 % (2.0-10.0) H 11/04/18 21:00 Eosinophils % 1.3 % (0.0-5.0) 11/04/18 21:00 Basophils % 0.5 % (0.0-2.0) 11/04/18 21:00 Sodium 145 mEq/L (136-145) 11/04/18 21:00 Potassium 4.3 mEq/L (3.5-5.1) 11/04/18 21:00 Chloride 106 mEq/L (98-107) 11/04/18 21:00 Carbon Dioxide 25.8 mEq/L (21.0-31.0) 11/04/18 21:00 Anion Gap 17.5 (7.0-16.0) H 11/04/18 21:00 BUN 55 mg/dL (7-25) H 11/04/18 21:00 Creatinine 6.8 mg/dL (0.6-1.2) H* 11/04/18 21:00 Est GFR ( Amer) 7.9 ml/min (>90) 11/04/18 21:00 Est GFR (Non-Af Amer) 6.5 ml/min 11/04/18 21:00 BUN/Creatinine Ratio 8.1 11/04/18 21:00 Glucose 130 mg/dL (70-105) H 11/04/18 21:00 Calcium 9.0 mg/dL (8.6-10.3) 11/04/18 21:00 Magnesium 1.8 mg/dL (1.9-2.7) L 11/04/18 21:00 Troponin I 0.07 ng/mL (0.01-0.05) H* D 11/04/18 21:00 - Radiology Results Results: Chest x-ray showed increased interstitial markings - EKG Interpretations Rate & Rhythm: normal sinus rhythm with a rate of 96 Sabael: normal axis Comments:: The anterior septal myocardial infarction ED Septic Shock - . Is Septic Shock (SBP<90, OR Lactate>4 mmol\L) present?: No - <6hrs of presentation: Vital Signs: Vital Signs - 8 hr 11/04/18 20:45 Temp 98.2 F HR 93 RR 12 BP 144/70 O2 Sat % 100 ED Reassessment (Disposition) - Reassessment Reassessment Condition:: Unchanged - Diagnosis Diagnosis:: Renal failure on dialysis; congestive heart failure; anemia - Patient Disposition Admitted to:: Med/Surg Spoke to:: Mary Ann Duque Admitting Medical Physician:: Mary Ann Duque Condition at Disposition:: Stable, Unchanged
[2018-11-04 22:06] LABS: % LYMPHOCYTES 19.5 % (20.0-50.0); EOSINOPHILE ABSOLUTE 0.1 Th/cmm (0.1-0.4); HEMOGLOBIN 8.2 gm/dL (12-16); LYMPHOCYTE ABSOLUTE 1.1 Th/cmm (1.5-3.0); MONOCYTE ABSOLUTE 0.8 Th/cmm (0.3-1.0); NEUTROPHILE ABSOLUTE 3.5 Th/cmm (1.8-8.0)
[2018-11-04 22:11] LABS: % BASOPHILS 0.5 % (0.0-2.0); % EOSINOPHILS 1.3 % (0.0-5.0); % NEUTROPHILS 64.7 % (40.0-80.0); HEMATOCRIT 25.4 % (41.0-60); MEAN CELL VOLUME 83.1 fl (81-100); MEAN CORPUSCULAR HEMOGLOBIN 26.8 pg (27.0-31.0); MEAN CORPUSCULAR HGB CONC 32.3 pg (28.0-36.0); MEAN PLATELET VOLUME 7.9 fl; PLATELET COUNT 174 Th/cmm (150-400); RED BLOOD COUNT 3.06 Mil/cmm (3.80-5.10); RED CELL DISTRIBUTION WIDTH 20.3 % (11.5-20.0); WHITE BLOOD COUNT 5.5 Th/cmm (4.8-10.8)
[2018-11-04 22:15] LABS: ANION GAP 17.5 (7.0-16.0); CARBON DIOXIDE 25.8 mEq/L (21.0-31.0); GFR AFRICAN-AMERICAN 7.9 ml/min (>90); GFR NON AFRICAN-AMERICAN 6.5 ml/min; MAGNESIUM 1.8 mg/dL (1.9-2.7); POTASSIUM SERUM 4.3 mEq/L (3.5-5.1)
[2018-11-04 22:16] LABS: CREATININE - SERUM 6.8 mg/dL (0.6-1.2)
[2018-11-04] MEDS ORDERED: HYDROmorphone 1 mg/mL 1mL Syr ONE (22:37)
[2018-11-04] MEDS ORDERED: HYDROmorphone 1 mg/mL 1mL Syr IVP STA (22:39)
[2018-11-05] MEDS ORDERED: HYDROmorphone 1 mg/mL 1mL Syr IVP PRN (02:26)
[2018-11-05] MEDS: HYDROmorphone 1 mg/mL 1mL Syr IVP PRN ×5 (02:36→22:35)
[2018-11-05 03:31] VITALS: BP 138/70
[2018-11-05] MEDS ORDERED: Guaifenesin DM 10 ML UDC PO PRN (05:58)
[2018-11-05] MEDS ORDERED: Non-Formulary Item 1 EA (Clonidine Hcl [Clonidine Hcl] 0.2 MG) PO PRN (05:58)
[2018-11-05] MEDS ORDERED: Albuterol/Ipratropium Neb 3 ML AERS HHN PRN ×2 (05:58)
[2018-11-05] MEDS ORDERED: Fleet Enema 135 mL RC PRN (05:58)
[2018-11-05] MEDS ORDERED: Magnesium Hydroxide (MOM) 30 mL UDC PO PRN (06:01)
[2018-11-05] MEDS ORDERED: Non-Formulary Item 1 EA (Hydralazine Hcl [Hydralazine Hcl] 100 MG) PO SCH (06:15)
[2018-11-05 07:07] LABS: HEMOGLOBIN 8.3 gm/dL (12-16); WHITE BLOOD COUNT 5.6 Th/cmm (4.8-10.8)
[2018-11-05 07:19] LABS: HEMATOCRIT 25.7 % (41.0-60); MEAN CELL VOLUME 83.2 fl (81-100); MEAN CORPUSCULAR HEMOGLOBIN 26.8 pg (27.0-31.0); MEAN CORPUSCULAR HGB CONC 32.2 pg (28.0-36.0); MEAN PLATELET VOLUME 7.7 fl; PLATELET COUNT 161 Th/cmm (150-400); RED BLOOD COUNT 3.08 Mil/cmm (3.80-5.10); RED CELL DISTRIBUTION WIDTH 20.2 % (11.5-20.0)
[2018-11-05 07:20] LABS: ALB/GLOB RATIO 1.4 (1.0-1.8); ALBUMIN 3.8 gm/dL (3.7-5.3); ANION GAP 18.9 (7.0-16.0); BILIRUBIN,TOTAL 0.5 mg/dL (0.3-1.0); CALCIUM SERUM 9.3 mg/dL (8.6-10.3); CARBON DIOXIDE 24.2 mEq/L (21.0-31.0); GFR AFRICAN-AMERICAN 7.5 ml/min (>90); GFR NON AFRICAN-AMERICAN 6.2 ml/min; POTASSIUM SERUM 4.1 mEq/L (3.5-5.1); TOTAL PROTEIN,SERUM 6.6 gm/dL (6.0-8.3)
[2018-11-05] MEDS: Venelex 60gm Tube TP SCH ×2 (08:04→19:02)
[2018-11-05 08:37] LABS: CREATININE - SERUM 7.1 mg/dL (0.6-1.2)
[2018-11-05] MEDS ORDERED: Non-Formulary Item 1 EA (Docusate Sodium [Docusate Sodium] 100 MG) PO SCH (09:00)
[2018-11-05] MEDS ORDERED: Non-Formulary Item 1 EA (Carvedilol [Carvedilol] 25 MG) PO SCH (09:00)
--- NOTE | 2018-11-05 09:12 | Diagnostic Imaging Report ---
Exam: Portable chest x-ray HISTORY: Congestion COMPARISON: 10/31/2018 Findings: Portable exam of chest at 2222 hours reviewed. The study demonstrates cardiomegaly, mild congestion. Left subclavian catheter terminates in superior vena cava. Bony thorax is intact. Atelectatic change in right base appreciated. IMPRESSION: cardiomegaly, congestion.
[2018-11-05 09:23] LABS: BAND NEUTROPHILE 4 % (0-10); LYMPHOCYTE 26 % (20-50); MONOCYTE 11 % (2-10); NEUTROPHILS 58 % (40-80)
[2018-11-05 09:24] LABS: BASOPHIL 0 % (0-3); EOSINOPHIL 1 % (0-5); PLATELET ESTIMATE ADEQUATE (NORMAL)
--- NOTE | 2018-11-05 12:58 | Consultation ---
Consult Note - Consult Note Service Date: 11/05/18 Referring Physician: Mary Ann Duque Consult Note: PHYSICIAN Consultation Note: Date of Admission: 11/05/18 Purpose of Consultation: ESRD Chief Complaint: SOB History of Present Illness: Patient ANDRAE BAEZ was admitted to [facility] Unit I with RENAL FAILURE. She was just hospitalized here with acute febrile illness and cough with congestion. She was discharged Wednesday. she apparently has not had dialysis since. she was brought here from [facility] due to complaints of SOB. She was found to be fluid overloaded and admitted for further evaluation. Past Medical History: ESRD, HTN, CAD, CHF Allergies Allergy/AdvReac Type Severity Reaction Status Date / Time morphine Allergy Verified 09/27/18 15:58 tramadol Allergy Verified 09/27/18 15:58 Vital Signs Temp 98.0 F 11/05/18 12:11 Pulse 79 11/05/18 12:11 Resp 19 11/05/18 12:11 BP 149/71 11/05/18 12:11 Pulse Ox 97 11/05/18 12:11 Intake & Output 11/04/18 11/05/18 11/05/18 18:59 06:59 18:59 Weight (lbs) 73.936 kg Other: Weight Source [facility] Laboratory Results - last 24 hr 11/04/18 11/04/18 11/04/18 21:00 21:00 21:00 WBC 5.5 RBC 3.06 L Hgb 8.2 L Hct 25.4 L MCV 83.1 MCH 26.8 L MCHC Differential 32.3 RDW 20.3 H Plt Count 174 MPV 7.9 Add Manual Diff Neutrophils % 64.7 Band Neutrophils % Lymphocytes % 19.5 L Monocytes % 14.0 H Eosinophils % 1.3 Basophils % 0.5 Neutrophils (Manual) Lymphocytes Monocytes Eosinophils Basophils Platelet Estimate Sodium 145 Potassium 4.3 Chloride 106 Carbon Dioxide 25.8 Anion Gap 17.5 H BUN 55 H Creatinine 6.8 H* Est GFR ( Amer) 7.9 Est GFR (Non-Af Amer) 6.5 BUN/Creatinine Ratio 8.1 Glucose 130 H Calcium 9.0 Magnesium 1.8 L Total Bilirubin AST ALT Alkaline Phosphatase Troponin I 0.07 H* D B-Natriuretic Peptide Total Protein Albumin Globulin Albumin/Globulin Ratio Amylase Lipase 0411/05/18 11/05/18 21:00 06:22 06:22 WBC 5.6 RBC 3.08 L Hgb 8.3 L Hct 25.7 L MCV 83.2 MCH 26.8 L MCHC Differential 32.2 RDW 20.2 H Plt Count 161 MPV 7.7 Add Manual Diff YES Neutrophils % Band Neutrophils % 4 Lymphocytes % Monocytes % Eosinophils % Basophils % Neutrophils (Manual) 58 Lymphocytes 26 Monocytes 11 H Eosinophils 1 Basophils 0 Platelet Estimate ADEQUATE Sodium 144 Potassium 4.1 Chloride 105 Carbon Dioxide 24.2 Anion Gap 18.9 H BUN 62 H Creatinine 7.1 H* Est GFR ( Amer) 7.5 Est GFR (Non-Af Amer) 6.2 BUN/Creatinine Ratio 8.7 Glucose 99 Calcium 9.3 Magnesium Total Bilirubin 0.5 AST 13 ALT 5 L Alkaline Phosphatase 145 H Troponin I B-Natriuretic Peptide 3380.0 H Total Protein 6.6 Albumin 3.8 Globulin 2.8 Albumin/Globulin Ratio 1.4 Amylase 87 Lipase 113 H Home Medication Medication Instructions Recorded Type Acetaminophen [Tylenol] 325 mg PO Q4HR PRN 11/04/18 History Albuterol/Ipratropium Neb [Duoneb 3 ml HHN Q2HR PRN 11/04/18 History Neb] Albuterol/Ipratropium Neb [Duoneb 3 ml HHN Q4HR PRN 11/04/18 History Neb] Amlodipine Besylate 5 mg PO BID 11/04/18 History Balsam [place] Oil [Venelex 1 applic TP Q12H 11/04/18 History Ointment] Bisacodyl [Dulcolax 10 Mg Supp] 10 mg RC DAILY PRN 11/04/18 History Calcium Acetate [Phoslo] 1,334 mg PO TID 11/04/18 History Carvedilol 25 mg PO BID 11/04/18 History Clonidine HCl 0.2 mg PO Q8H PRN 11/04/18 History Diphenhydramine HCL [Benadryl] 25 mg GT Q6H PRN 11/04/18 History Docusate Sodium 100 mg PO BID 11/04/18 History Fleet Enema 135 ml RC PRN PRN 11/04/18 History Guaifenesin DM [Robitussin DM] 10 ml PO Q4HR PRN 11/04/18 History Hydralazine HCl 100 mg PO Q12H 11/04/18 History Ibuprofen [Motrin*] 600 mg PO Q4H PRN 11/04/18 History Loperamide [Imodium] 2 mg PO Q4H PRN 11/04/18 History Losartan Potassium 50 mg PO BID 11/04/18 History Magnesium Hydroxide [Milk of 30 ml PO HS PRN 11/04/18 History Magnesia] Minoxidil 2.5 mg PO BID 11/04/18 History Pantoprazole Sodium 40 mg PO DAILY 11/04/18 History Zolpidem Tartrate 10 mg PO HS PRN 11/04/18 History Current Medications Generic Name Dose Route Start Last Admin Trade Name Freq PRN Reason Stop Dose Admin Acetaminophen 325 mg 11/05/18 05:58 Tylenol PO 01/04/19 05:57 Q4HR PRN Pain or Fever >101 Albuterol/Ipratropium 3 ml 11/05/18 05:58 Duoneb Neb HHN 01/04/19 05:57 Q2HRT PRN Wheezing Amlodipine Besylate 5 mg 11/05/18 09:00 11/05/18 11:06 Norvasc PO 01/04/19 08:59 Not Given BID [facility] Bisacodyl 10 mg 11/05/18 05:58 Dulcolax 10 Mg Supp RC 01/04/19 05:57 DAILY PRN Constipation Calcium Acetate 1,334 mg 11/05/18 09:00 11/05/18 09:10 Phoslo PO 01/04/19 08:59 1,334 mg TID HONEY Administration Carvedilol 25 mg 11/05/18 09:00 11/05/18 11:06 Coreg PO 01/04/19 08:59 Not Given BID [facility] [place] Oil/[place] Balsam/Trypsin 1 appl 11/05/18 06:00 11/05/18 08:04 Venelex TP 01/04/19 05:59 Not Given Q12H [facility] Diphenhydramine HCl 25 mg 11/05/18 05:58 Benadryl GT 01/04/19 05:57 Q6H PRN Itching Docusate Sodium 100 mg 11/05/18 09:00 11/05/18 09:10 Colace PO 01/04/19 08:59 Not Given BID [facility] Guaifenesin/Dextromethorphan 10 ml 11/05/18 05:58 Robitussin Dm PO 01/04/19 05:57 Q4HR PRN Cough Hydralazine HCl 100 mg 11/05/18 09:00 11/05/18 11:07 Apresoline PO 01/04/19 08:59 Not Given Q12HR [facility] Hydromorphone HCl 1 mg 11/05/18 02:26 11/05/18 07:34 Dilaudid IVP 01/04/19 02:25 1 mg Q4HR PRN Administration Pain (Severe) Hydromorphone HCl 0.5 mg 11/05/18 02:26 Dilaudid IVP 01/04/19 02:25 Q4HR PRN Pain (Moderate) Ibuprofen 600 mg 11/05/18 06:01 Motrin PO 01/04/19 06:00 Q4H PRN Pain (Moderate) Loperamide HCl 2 mg 11/05/18 06:01 Imodium PO 01/04/19 06:00 Q4H PRN Diarrhea Losartan Potassium 50 mg 11/05/18 09:00 11/05/18 11:07 Cozaar PO 01/04/19 08:59 Not Given BID [facility] Magnesium Hydroxide 30 ml 11/05/18 06:01 Milk Of Magnesia PO 01/04/19 06:00 HS PRN Constipation Minoxidil 2.5 mg 11/05/18 09:00 11/05/18 11:07 Loniten PO 01/04/19 08:59 Not Given BID [facility]Y Sodium Phosphate 135 ml 11/05/18 05:58 Fleet Enema RC 01/04/19 05:57 PRN PRN Constipation Review of Systems: A 12 point ROS was reviewed with the pertinent positive and negatives noted in the HPI. Social History Smoking Status Smoker, status unknown Family Medical History Family Medical History Start: 11/05/18 01: 49 Freq: ONCE Status: Active Protocol: Document 11/05/18 02:26 AYE (Rec: 11/05/18 03:31 AYE [email or web address]- [id number]) Family Medical History Mother History Unknown Yes Physical Exam: General: Awake alert in NAD HEENT: Head nc/at, sclerae anicteric, OP clear moist Neck: Supple Cardio: S1S2 regular, L chest permacath intact Respiratory: scattered rales b/l Abdominal: soft NTND Genital/Urinary: Not done Extremities: 2+ edema BLE Neurological: no deficit seen Assessment: 1. ESRD/DIALYSIS STATUS 2. FLUID OVERLOAD 3. CHF EXACERBATION 4. HTN W ESRD 5. ANEMIA W ESRD 6. SECONDARY HYPERPARATHYROIDISM RENAL ORIGIN Plan: THE PATIENT WILL BE DIALYZED TODAY CONT TO MONITOR VOLUME STATUS EPOGEN FOR ANEMIA CONT MEDS INCLUDING BINDERS SUPPORTIVE CARE Signed, Marshal Elliott 255
[2018-11-05] MEDS ORDERED: Epoetin Alfa 20000 Units/mL Vial SUBQ SCH (13:00)
--- NOTE | 2018-11-05 18:43 | History & Physical ---
ADMIT DATE: 11/05/2018 CHIEF COMPLAINT: Shortness of breath. HISTORY OF PRESENT ILLNESS: This is a 63-year-old female, who was admitted from a senior living facility, and experienced shortness of breath and then transferred to [facility] for further evaluation. Workup from [facility] revealed that the patient had fluid overload and she also missed some dialysis days. Since then, the patient was stabilized and admitted to med/surg unit. REVIEW OF SYSTEMS: GENERAL: This is a 63-year-old female. No fever. No weakness. HEAD: No headache, dizziness. EYES: No eye pain, no blurring of vision. NECK: No neck pain or nuchal rigidity. CHEST: No chest pain or palpitation. PULMONARY: Positive shortness of breath, no coughing. GASTROINTESTINAL: No abdominal pain, no constipation or diarrhea. MUSCULOSKELETAL: No joint pain. No muscle pain. SOCIAL HISTORY: The patient lives in a senior living facility prior to hospitalization. PAST SURGICAL HISTORY: Unremarkable. FAMILY HISTORY: Unremarkable. PAST MEDICAL HISTORY: Includes end-stage renal disease, hemodialysis dependent, hypertension, iron deficiency anemia, osteoarthritis. PHYSICAL EXAMINATION: VITAL SIGNS: Temperature 98.1, heart rate 87, blood pressure 135/66, respirations of 19, and 96% on 2 liters via nasal cannula. GENERAL: This is a 63-year-old female that appears as stated in no acute distress. HEENT: Head is atraumatic, normocephalic. Eyes: Bilateral conjunctivae are clear. Bilateral pupils are equally round and reactive. NECK: Supple. No JVD. CARDIOVASCULAR: S1 and S2 without murmur. PULMONARY: Positive for crackles bilaterally. GASTROINTESTINAL: Soft and nontender without guarding. Positive bowel sounds. MUSCULOSKELETAL: No clubbing. No cyanosis noted. ASSESSMENT: 1. Congestive heart failure. 2. End-stage renal disease, hemodialysis dependent. 3. Hypertension. 4. Iron deficiency anemia. 5. Osteoarthritis. PLAN: We will admit the patient to med/surg unit. We will consult with manager financial for dialysis management. We will do medication reconciliation accordingly. Treatment plans were discussed with the patient's nurse. Treatment plans were discussed with Dr. Duque. JOB# [id number]
[2018-11-06] MEDS: HYDROmorphone 1 mg/mL 1mL Syr IVP PRN ×5 (02:26→21:52)
[2018-11-06] MEDS: Venelex 60gm Tube TP SCH ×2 (06:23→18:31)
--- NOTE | 2018-11-06 17:30 | General Progress Note ---
Subjective - Review of Systems Service Date: 11/06/18 Events since last encounter: dialyzed yesterday anxious Subjective: anxious but otherwise feels ok Objective - Results Result Diagrams: 11/05/18 06:22 11/05/18 06:22 Recent Labs: Laboratory Last Values WBC 5.6 Th/cmm (4.8-10.8) 11/05/18 06:22 RBC 3.08 Mil/cmm (3.80-5.10) L 11/05/18 06:22 Hgb 8.3 gm/dL (12-16) L 11/05/18 06:22 Hct 25.7 % (41.0-60) L 11/05/18 06:22 MCV 83.2 fl (81-100) 11/05/18 06:22 MCH 26.8 pg (27.0-31.0) L 11/05/18 06:22 MCHC Differential 32.2 pg (28.0-36.0) 11/05/18 06:22 RDW 20.2 % (11.5-20.0) H 11/05/18 06:22 Plt Count 161 Th/cmm (150-400) 11/05/18 06:22 MPV 7.7 fl 11/05/18 06:22 Add Manual Diff YES 11/05/18 06:22 Neutrophils % 64.7 % (40.0-80.0) 11/04/18 21:00 Band Neutrophils % 4 % (0-10) 11/05/18 06:22 Lymphocytes % 19.5 % (20.0-50.0) L 11/04/18 21:00 Monocytes % 14.0 % (2.0-10.0) H 11/04/18 21:00 Eosinophils % 1.3 % (0.0-5.0) 11/04/18 21:00 Basophils % 0.5 % (0.0-2.0) 11/04/18 21:00 Neutrophils (Manual) 58 % (40-80) 11/05/18 06:22 Lymphocytes 26 % (20-50) 11/05/18 06:22 Monocytes 11 % (2-10) H 11/05/18 06:22 Eosinophils 1 % (0-5) 11/05/18 06:22 Basophils 0 % (0-3) 11/05/18 06:22 Platelet Estimate ADEQUATE (NORMAL) 11/05/18 06:22 Sodium 144 mEq/L (136-145) 11/05/18 06:22 Potassium 4.1 mEq/L (3.5-5.1) 11/05/18 06:22 Chloride 105 mEq/L (98-107) 11/05/18 06:22 Carbon Dioxide 24.2 mEq/L (21.0-31.0) 11/05/18 06:22 Anion Gap 18.9 (7.0-16.0) H 11/05/18 06:22 BUN 62 mg/dL (7-25) H 11/05/18 06:22 Creatinine 7.1 mg/dL (0.6-1.2) H* 11/05/18 06:22 Est GFR ( Amer) 7.5 ml/min (>90) 11/05/18 06:22 Est GFR (Non-Af Amer) 6.2 ml/min 11/05/18 06:22 BUN/Creatinine Ratio 8.7 11/05/18 06:22 Glucose 99 mg/dL (70-105) 11/05/18 06:22 Calcium 9.3 mg/dL (8.6-10.3) 11/05/18 06:22 Magnesium 1.8 mg/dL (1.9-2.7) L 11/04/18 21:00 Total Bilirubin 0.5 mg/dL (0.3-1.0) 11/05/18 06:22 AST 13 U/L (13-39) 11/05/18 06:22 ALT 5 U/L (7-52) L 11/05/18 06:22 Alkaline Phosphatase 145 U/L (34-104) H 11/05/18 06:22 Troponin I 0.07 ng/mL (0.01-0.05) H* D 11/04/18 21:00 B-Natriuretic Peptide 3380.0 pg/mL (5.0-100.0) H 11/04/18 21:00 Total Protein 6.6 gm/dL (6.0-8.3) 11/05/18 06:22 Albumin 3.8 gm/dL (3.7-5.3) 11/05/18 06:22 Globulin 2.8 gm/dL 11/05/18 06:22 Albumin/Globulin Ratio 1.4 (1.0-1.8) 11/05/18 06:22 Amylase 87 U/L (29-103) 11/05/18 06:22 Lipase 113 U/L (11-82) H 11/05/18 06:22 - Physical Exam Vitals and I&O: Vital Signs Temp 97.4 F 11/06/18 09:03 Pulse 80 11/06/18 17:27 Resp 19 11/06/18 09:03 BP 109/61 11/06/18 17:27 Pulse Ox 99 11/06/18 09:03 Intake & Output 11/05/18 11/06/18 11/06/18 18:59 06:59 18:59 Intake Total 650 150 Balance 650 150 Weight (lbs) 74.843 kg 74.843 kg Intake: Oral 650 150 Other: Weight Source Patient stated Standing scale Active Medications: Current Medications Acetaminophen (Tylenol) 325 mg PO Q4HR PRN PRN Reason: Pain or Fever >101 Stop: 01/04/19 05:57 Albuterol/Ipratropium (Duoneb Neb) 3 ml HHN Q2HRT PRN PRN Reason: Wheezing Stop: 01/04/19 05:57 Amlodipine Besylate (Norvasc) 5 mg PO BID [facility] Stop: 01/04/19 08:59 Last Admin: 11/06/18 17:27 Dose: 5 mg Bisacodyl (Dulcolax 10 Mg Supp) 10 mg RC DAILY PRN PRN Reason: Constipation Stop: 01/04/19 05:57 Calcium Acetate (Phoslo) 1,334 mg PO TID [facility] Stop: 01/04/19 08:59 Last Admin: 11/06/18 12:59 Dose: 1,334 mg Carvedilol (Coreg) 25 mg PO BID [facility] Stop: 01/04/19 08:59 Last Admin: 11/06/18 17:27 Dose: 25 mg [place] Oil/[place] Balsam/Trypsin (Venelex) 1 appl TP Q12H [facility] Stop: 01/04/19 05:59 Last Admin: 11/06/18 06:23 Dose: 1 appl Diphenhydramine HCl (Benadryl) 25 mg GT Q6H PRN PRN Reason: Itching Stop: 01/04/19 05:57 Docusate Sodium (Colace) 100 mg PO BID [facility] Stop: 01/04/19 08:59 Last Admin: 11/06/18 17:28 Dose: Not Given Epoetin Jordi (Epogen) 5,000 units SUBQ TuThSa [facility] Stop: 01/04/19 12:59 Last Admin: 11/05/18 17:31 Dose: 5,000 units Guaifenesin/Dextromethorphan (Robitussin Dm) 10 ml PO Q4HR PRN PRN Reason: Cough Stop: 01/04/19 05:57 Hydralazine HCl (Apresoline) 100 mg PO Q12HR [facility] Stop: 01/04/19 08:59 Last Admin: 11/06/18 08:54 Dose: 100 mg Hydromorphone HCl (Dilaudid) 1 mg IVP Q4HR PRN PRN Reason: Pain (Severe) Stop: 01/04/19 02:25 Last Admin: 11/06/18 13:25 Dose: 1 mg Hydromorphone HCl (Dilaudid) 0.5 mg IVP Q4HR PRN PRN Reason: Pain (Moderate) Stop: 01/04/19 02:25 Ibuprofen (Motrin) 600 mg PO Q4H PRN PRN Reason: Pain (Moderate) Stop: 01/04/19 06:00 Loperamide HCl (Imodium) 2 mg PO Q4H PRN PRN Reason: Diarrhea Stop: 01/04/19 06:00 Losartan Potassium (Cozaar) 50 mg PO BID [facility] Stop: 01/04/19 08:59 Last Admin: 11/06/18 17:26 Dose: 50 mg Magnesium Hydroxide (Milk Of Magnesia) 30 ml PO HS PRN PRN Reason: Constipation Stop: 01/04/19 06:00 Minoxidil (Loniten) 2.5 mg PO BID [facility] Stop: 01/04/19 08:59 Last Admin: 11/06/18 17:22 Dose: 2.5 mg Sodium Phosphate (Fleet Enema) 135 ml RC PRN PRN PRN Reason: Constipation Stop: 01/04/19 05:57 General: Alert, Oriented x3, No acute distress HEENT: Atraumatic, PERRLA, EOMI, Mucous membr. moist/pink Neck: Supple, no JVD Cardiovascular: Regular rate, Normal S1, Normal S2 Lungs: Clear to auscultation, Normal air movement Abdomen: Soft, no Tender, no Distended Extremities: Edema (2+ ble eema) Neurological: Normal speech - Procedures Procedures: Procedures Procedure Code Date PERFORMANCE OF URINARY FILTRATION, <6 HRS/DAY [id number] 10/25/18 TRANSFUSE NONAUT RED BLOOD CELLS IN PERIPH VEIN, [facility] [id number] 09/27/18 Assessment/Plan - Assessment Assessment: esrd/dialysis status fluid overload chf exacerbation htn w esrd dm2 w esrd anemia w esrd - Plan Plan: will dialyze tomorrow continue with current management
[2018-11-07] MEDS: HYDROmorphone 1 mg/mL 1mL Syr IVP PRN ×5 (02:25→18:34)
[2018-11-07] MEDS: Venelex 60gm Tube TP SCH ×2 (06:11→18:46)
[2018-11-07 06:52] LABS: ANION GAP 16.2 (7.0-16.0); CALCIUM SERUM 9.1 mg/dL (8.6-10.3); CARBON DIOXIDE 26.8 mEq/L (21.0-31.0); GFR AFRICAN-AMERICAN 8.4 ml/min (>90)
[2018-11-07 07:15] LABS: CREATININE - SERUM 6.4 mg/dL (0.6-1.2)
[2018-11-07] MEDS ORDERED: Pantoprazole 40 mg EC Tab PO SCH (07:30)
[2018-11-07 07:38] LABS: HEMATOCRIT 26.6 % (41.0-60); HEMOGLOBIN 8.4 gm/dL (12-16); MEAN CELL VOLUME 83.1 fl (81-100); MEAN CORPUSCULAR HEMOGLOBIN 26.4 pg (27.0-31.0); MEAN CORPUSCULAR HGB CONC 31.7 pg (28.0-36.0); MEAN PLATELET VOLUME 7.3 fl; PLATELET COUNT 197 Th/cmm (150-400); RED BLOOD COUNT 3.19 Mil/cmm (3.80-5.10); RED CELL DISTRIBUTION WIDTH 19.8 % (11.5-20.0); WHITE BLOOD COUNT 4.6 Th/cmm (4.8-10.8)
[2018-11-07 08:19] LABS: EOSINOPHIL 1 % (0-5); LYMPHOCYTE 24 % (20-50); MONOCYTE 10 % (2-10); NEUTROPHILS 65 % (40-80)
[2018-11-07 08:21] LABS: PLATELET ESTIMATE ADEQUATE (NORMAL)
--- NOTE | 2018-11-07 12:52 | General Progress Note ---
Subjective - Review of Systems Service Date: 11/07/18 Subjective: Known to me from previous hospitalization, due for HD today Objective - Results Result Diagrams: 11/07/18 06:00 11/07/18 06:00 Recent Labs: Laboratory Last Values WBC 4.6 Th/cmm (4.8-10.8) L 11/07/18 06:00 RBC 3.19 Mil/cmm (3.80-5.10) L 11/07/18 06:00 Hgb 8.4 gm/dL (12-16) L 11/07/18 06:00 Hct 26.6 % (41.0-60) L 11/07/18 06:00 MCV 83.1 fl (81-100) 11/07/18 06:00 MCH 26.4 pg (27.0-31.0) L 11/07/18 06:00 MCHC Differential 31.7 pg (28.0-36.0) 11/07/18 06:00 RDW 19.8 % (11.5-20.0) 11/07/18 06:00 Plt Count 197 Th/cmm (150-400) 11/07/18 06:00 MPV 7.3 fl 11/07/18 06:00 Add Manual Diff YES 11/07/18 06:00 Neutrophils % 64.7 % (40.0-80.0) 11/04/18 21:00 Band Neutrophils % 4 % (0-10) 11/05/18 06:22 Lymphocytes % 19.5 % (20.0-50.0) L 11/04/18 21:00 Monocytes % 14.0 % (2.0-10.0) H 11/04/18 21:00 Eosinophils % 1.3 % (0.0-5.0) 11/04/18 21:00 Basophils % 0.5 % (0.0-2.0) 11/04/18 21:00 Neutrophils (Manual) 65 % (40-80) 11/07/18 06:00 Lymphocytes 24 % (20-50) 11/07/18 06:00 Monocytes 10 % (2-10) 11/07/18 06:00 Eosinophils 1 % (0-5) 11/07/18 06:00 Basophils 0 % (0-3) 11/05/18 06:22 Platelet Estimate ADEQUATE (NORMAL) 11/07/18 06:00 Sodium 136 mEq/L (136-145) 11/07/18 06:00 Potassium 4.0 mEq/L (3.5-5.1) 11/07/18 06:00 Chloride 97 mEq/L (98-107) L 11/07/18 06:00 Carbon Dioxide 26.8 mEq/L (21.0-31.0) 11/07/18 06:00 Anion Gap 16.2 (7.0-16.0) H 11/07/18 06:00 BUN 50 mg/dL (7-25) H 11/07/18 06:00 Creatinine 6.4 mg/dL (0.6-1.2) H* 11/07/18 06:00 Est GFR ( Amer) 8.4 ml/min (>90) 11/07/18 06:00 Est GFR (Non-Af Amer) 7.0 ml/min 11/07/18 06:00 BUN/Creatinine Ratio 7.8 11/07/18 06:00 Glucose 119 mg/dL (70-105) H 11/07/18 06:00 Calcium 9.1 mg/dL (8.6-10.3) 11/07/18 06:00 Magnesium 1.8 mg/dL (1.9-2.7) L 11/04/18 21:00 Total Bilirubin 0.5 mg/dL (0.3-1.0) 11/05/18 06:22 AST 13 U/L (13-39) 11/05/18 06:22 ALT 5 U/L (7-52) L 11/05/18 06:22 Alkaline Phosphatase 145 U/L (34-104) H 11/05/18 06:22 Troponin I 0.07 ng/mL (0.01-0.05) H* D 11/04/18 21:00 B-Natriuretic Peptide 3380.0 pg/mL (5.0-100.0) H 11/04/18 21:00 Total Protein 6.6 gm/dL (6.0-8.3) 11/05/18 06:22 Albumin 3.8 gm/dL (3.7-5.3) 11/05/18 06:22 Globulin 2.8 gm/dL 11/05/18 06:22 Albumin/Globulin Ratio 1.4 (1.0-1.8) 11/05/18 06:22 Amylase 87 U/L (29-103) 11/05/18 06:22 Lipase 113 U/L (11-82) H 11/05/18 06:22 - Physical Exam Vitals and I&O: Vital Signs Temp 98.4 F 11/07/18 08:00 Pulse 79 11/07/18 09:33 Resp 18 11/07/18 08:00 BP 107/59 11/07/18 09:33 Pulse Ox 97 11/07/18 08:00 Intake & Output 11/06/18 11/07/18 11/07/18 18:59 06:59 18:59 Intake Total 650 300 Balance 650 300 Weight (lbs) 74.843 kg 74.843 kg Intake: Oral 650 300 Other: # Voids 4 4 # Bowel Movements 3 Weight Source Patient stated Patient stated Active Medications: Current Medications Acetaminophen (Tylenol) 325 mg PO Q4HR PRN PRN Reason: Pain or Fever >101 Stop: 01/04/19 05:57 Albuterol/Ipratropium (Duoneb Neb) 3 ml HHN Q2HRT PRN PRN Reason: Wheezing Stop: 01/04/19 05:57 Amlodipine Besylate (Norvasc) 5 mg PO BID [facility] Stop: 01/04/19 08:59 Last Admin: 11/07/18 09:31 Dose: Not Given Bisacodyl (Dulcolax 10 Mg Supp) 10 mg RC DAILY PRN PRN Reason: Constipation Stop: 01/04/19 05:57 Calcium Acetate (Phoslo) 1,334 mg PO TID [facility] Stop: 01/04/19 08:59 Last Admin: 11/07/18 10:04 Dose: 1,334 mg Carvedilol (Coreg) 25 mg PO BID [facility] Stop: 01/04/19 08:59 Last Admin: 11/07/18 09:32 Dose: Not Given [place] Oil/[place] Balsam/Trypsin (Venelex) 1 appl TP Q12H [facility] Stop: 01/04/19 05:59 Last Admin: 11/07/18 06:11 Dose: 1 appl Diphenhydramine HCl (Benadryl) 25 mg GT Q6H PRN PRN Reason: Itching Stop: 01/04/19 05:57 Docusate Sodium (Colace) 100 mg PO BID [facility] Stop: 01/04/19 08:59 Last Admin: 11/07/18 10:12 Dose: Not Given Epoetin Jordi (Epogen) 5,000 units SUBQ TuThSa [facility] Stop: 01/04/19 12:59 Last Admin: 11/05/18 17:31 Dose: 5,000 units Guaifenesin/Dextromethorphan (Robitussin Dm) 10 ml PO Q4HR PRN PRN Reason: Cough Stop: 01/04/19 05:57 Hydralazine HCl (Apresoline) 100 mg PO Q12HR [facility] Stop: 01/04/19 08:59 Last Admin: 11/07/18 09:32 Dose: Not Given Hydromorphone HCl (Dilaudid) 1 mg IVP Q4HR PRN PRN Reason: Pain (Severe) Stop: 01/04/19 02:25 Last Admin: 11/07/18 10:13 Dose: 1 mg Hydromorphone HCl (Dilaudid) 0.5 mg IVP Q4HR PRN PRN Reason: Pain (Moderate) Stop: 01/04/19 02:25 Ibuprofen (Motrin) 600 mg PO Q4H PRN PRN Reason: Pain (Moderate) Stop: 01/04/19 06:00 Loperamide HCl (Imodium) 2 mg PO Q4H PRN PRN Reason: Diarrhea Stop: 01/04/19 06:00 Losartan Potassium (Cozaar) 50 mg PO BID [facility] Stop: 01/04/19 08:59 Last Admin: 11/07/18 09:32 Dose: Not Given Magnesium Hydroxide (Milk Of Magnesia) 30 ml PO HS PRN PRN Reason: Constipation Stop: 01/04/19 06:00 Minoxidil (Loniten) 2.5 mg PO BID [facility] Stop: 01/04/19 08:59 Last Admin: 11/07/18 09:33 Dose: Not Given Pantoprazole Sodium (Protonix) 40 mg PO QDAC [facility] Stop: 01/06/19 07:29 Last Admin: 11/07/18 10:04 Dose: 40 mg Sodium Phosphate (Fleet Enema) 135 ml RC PRN PRN PRN Reason: Constipation Stop: 01/04/19 05:57 General: Alert, Oriented x3, No acute distress HEENT: Atraumatic, PERRLA, EOMI, Mucous membr. moist/pink Neck: Supple, no JVD Cardiovascular: Regular rate, Normal S1, Normal S2 Lungs: Clear to auscultation, Normal air movement Abdomen: Soft, no Tender, no Distended Extremities: Edema (2+ ble eema) Neurological: Normal speech - Procedures Procedures: Procedures Procedure Code Date PERFORMANCE OF URINARY FILTRATION, <6 HRS/DAY [id number] 10/25/18 TRANSFUSE NONAUT RED BLOOD CELLS IN PERIPH VEIN, [facility] [id number] 09/27/18 Assessment/Plan - Plan Plan: HD today, UF as indicated BP controlled on HD H&H in range continue ANTHONY
== END 2018-11-07 20:00 | DRG 291 ==
LOC: ER 20:41 → MSI 11-05 01:20
PROVIDERS: ADMIT Internal Medicine; ATTEND Internal Medicine
PROC: 5A1D70Z Performance of Urinary Filtration, Intermittent, Less than 6 Hours Per Day (ICD-10-PCS; principal; 2018-11-05)
DX: I13.2 Hypertensive heart and chronic kidney disease with heart failure and with stage 5 chronic kidney disease, or end stage renal disease (principal); I50.43 Acute on chronic combined systolic (congestive) and diastolic (congestive) heart failure; N18.6 End stage renal disease; N25.81 Secondary hyperparathyroidism of renal origin; D50.9 Iron deficiency anemia, unspecified; E11.22 Type 2 diabetes mellitus with diabetic chronic kidney disease; J44.9 Chronic obstructive pulmonary disease, unspecified; I25.10 Atherosclerotic heart disease of native coronary artery without angina pectoris; D63.1 Anemia in chronic kidney disease; M19.90 Unspecified osteoarthritis, unspecified site; Z99.2 Dependence on renal dialysis; Z88.5 Allergy status to narcotic agent
CPT/HCPCS: 36415-UA; 71045-TC; 80048-TC; 80053-TC; 82150-TC; 83690-TC; 83735-TC; 83880-TC; 84484-TC; 85007-TC; 85025-TC; 93005; 94760; 96374; A4217; J0885; J1170; J7030; Z7610

== ENCOUNTER 2018-11-08 18:56 | Emergency (ER) | payer MEDICARE, MEDICAID ==
--- NOTE | 2018-11-08 19:26 | ED Physician Chart ---
ED Chief Complaint/HPI - Patient Information Date Seen:: 11/08/18 Time Seen:: 19:25 Chief Complaint:: Chest pain and body pain History of Present Illness:: 63 yo female with history of ESRD on HD, developed diffuse body pain, chest pain and dyspnea during dialysis. Pt told the nurse that the pain was intolerable. 911 was called and pt was brought to ER for further evaluation. 2+ edema of BLE was noticed. Pt was screaming and yelling at ER. Allergies:: Allergies Allergy/AdvReac Type Severity Reaction Status Date / Time morphine Allergy Verified 09/27/18 15:58 tramadol Allergy Verified 09/27/18 15:58 ED Review of Systems - Review of Systems General/Constitutional: No fever Skin: No bruising Head: No headache Eyes: No pain ENT: No nasal drainage Neck: No neck pain Cardio Vascular: Chest pain Pulmonary: SOB GI: No nausea, No vomiting Musculoskeletal: Bone or joint pain, Muscle pain Neurological: Headache ED Past Medical History - Past Medical History Past Medical History: Asthma/COPD, ESRD (on HD) Social History: Non Smoker, No Alcohol, No Drug Use Surgical History: other (Right chest Pablo catheter, Right arm AV shunt) Family Medical History - Family Member Mother History Unknown: Yes ED Physical Exam - Physical Examination General/Constitutional: Awake, Alert Other Gen/Cons comments:: A & O x 2 Eyes: PERRL Skin: No ecchymosis ENMT: Nasal exam nl Neck: No nuchal rigidity Other Respiratory comments:: Right chest Pablo catheter Cardio Vascular: RRR, No murmur, gallop, rubs, NL S1 S2 GI: No tenderness/rebounding/guarding Other Extremities comments:: Right arm AV shunt not being used per patient Other Neuro/Psych comments:: A&O x 2, yelling and screaming ED Labs/Radiology/EKG Results - Lab Results Results: Laboratory Last Values WBC 5.2 Th/cmm (4.8-10.8) 11/08/18 19:40 RBC 3.15 Mil/cmm (3.80-5.10) L 11/08/18 19:40 Hgb 8.4 gm/dL (12-16) L 11/08/18 19:40 Hct 25.8 % (41.0-60) L 11/08/18 19:40 MCV 81.9 fl (81-100) 11/08/18 19:40 MCH 26.7 pg (27.0-31.0) L 11/08/18 19:40 MCHC Differential 32.6 pg (28.0-36.0) 11/08/18 19:40 RDW 19.2 % (11.5-20.0) 11/08/18 19:40 Plt Count 214 Th/cmm (150-400) 11/08/18 19:40 MPV 7.5 fl 11/08/18 19:40 Neutrophils % 65.1 % (40.0-80.0) 11/08/18 19:40 Lymphocytes % 21.0 % (20.0-50.0) 11/08/18 19:40 Monocytes % 11.4 % (2.0-10.0) H 11/08/18 19:40 Eosinophils % 1.3 % (0.0-5.0) 11/08/18 19:40 Basophils % 1.2 % (0.0-2.0) 11/08/18 19:40 PT 11.6 SECONDS (9.5-11.5) H 11/08/18 19:40 INR 1.13 (0.5-1.4) 11/08/18 19:40 PTT (Actin FS) 26.5 SECONDS (26.0-38.0) 11/08/18 19:40 D-Dimer 2250 ng/mL (100-400) H 11/08/18 19:40 Specimen Source Arterial 11/08/18 20:59 Sample Site Right Radial 11/08/18 20:59 pH 7.340 (7.35-7.45) L 11/08/18 20:59 pCO2 43.2 mmHg (35.0-45.0) 11/08/18 20:59 pO2 87.3 mmHg (80.0-100.0) 11/08/18 20:59 HCO3 23.0 mEq/L (20.0-26.0) 11/08/18 20:59 Base Excess -2.7 mEq/L (-3.0-3.0) 11/08/18 20:59 O2 Saturation 96.2 % (92.0-100.0) 11/08/18 20:59 Max Test Positive 11/08/18 20:59 Vent Rate NA 11/08/18 20:59 Inspired O2 28 11/08/18 20:59 Tidal Volume NA 11/08/18 20:59 PEEP NA 11/08/18 20:59 Pressure (ins/psv/peep) NA 11/08/18 20:59 Critical Value AB 11/08/18 20:59 Sodium 137 mEq/L (136-145) 11/08/18 19:40 Potassium 4.5 mEq/L (3.5-5.1) 11/08/18 19:40 Chloride 98 mEq/L (98-107) 11/08/18 19:40 Carbon Dioxide 23.5 mEq/L (21.0-31.0) 11/08/18 19:40 Anion Gap 20.0 (7.0-16.0) H 11/08/18 19:40 BUN 52 mg/dL (7-25) H 11/08/18 19:40 Creatinine 6.4 mg/dL (0.6-1.2) H* 11/08/18 19:40 Est GFR ( Amer) 8.4 ml/min (>90) 11/08/18 19:40 Est GFR (Non-Af Amer) 7.0 ml/min 11/08/18 19:40 BUN/Creatinine Ratio 8.1 11/08/18 19:40 Glucose 131 mg/dL (70-105) H 11/08/18 19:40 Whole Bld Lactic Acid 1.55 mmol/L (0.60-1.99) 11/08/18 19:40 Calcium 8.8 mg/dL (8.6-10.3) 11/08/18 19:40 Total Bilirubin 0.5 mg/dL (0.3-1.0) 11/08/18 19:40 AST 14 U/L (13-39) 11/08/18 19:40 ALT 5 U/L (7-52) L 11/08/18 19:40 Alkaline Phosphatase 158 U/L (34-104) H 11/08/18 19:40 Creatine Kinase 36 U/L (30-223) 11/08/18 19:40 Troponin I 0.04 ng/mL (0.01-0.05) 11/08/18 19:40 B-Natriuretic Peptide 2220.0 pg/mL (5.0-100.0) H 11/08/18 19:40 Total Protein 6.6 gm/dL (6.0-8.3) 11/08/18 19:40 Albumin 3.8 gm/dL (3.7-5.3) 11/08/18 19:40 Globulin 2.8 gm/dL 11/08/18 19:40 Albumin/Globulin Ratio 1.4 (1.0-1.8) 11/08/18 19:40 Triglycerides 145 mg/dL (<150) 11/08/18 19:40 Cholesterol 102 mg/dL (<200) 11/08/18 19:40 LDL Cholesterol Direct 49 mg/dL (75-193) L 11/08/18 19:40 HDL Cholesterol 30 mg/dL (23-92) 11/08/18 19:40 - Radiology Results Results: Bilateral lower extremities: venous U/S are negative for DVT and unable to exam right mid/distal and left proximal superficial femoral veins. ED Assessment - Assessment General Assessment: ESRD on HD Anemia of chronic kidney disease Congestive heart failure Elevated BNF Elevated D-Dimer, limited BLE U/S showed no DVT Agitation Assessment/Comments:: CBC, CMP, BNP, Trop, D-Dimer CXR, EKG Aspirin 325mg PO Nitroglycerin 0.4mg SL Ativan 1mg IV BLE U/S D/c pt to SNF ED Septic Shock - . Is Septic Shock (SBP<90, OR Lactate>4 mmol\L) present?: No ED Reassessment (Disposition) - Reassessment Reassessment Condition:: Improved - Patient Disposition Discharge/Transfer:: [facility]
[2018-11-08 19:51] LABS: % BASOPHILS 1.2 % (0.0-2.0); % EOSINOPHILS 1.3 % (0.0-5.0); % MONOCYTES 11.4 % (2.0-10.0); % NEUTROPHILS 65.1 % (40.0-80.0); BASOPHILE ABSOLUTE 0.1 Th/cumm (0-0.2); EOSINOPHILE ABSOLUTE 0.1 Th/cmm (0.1-0.4); HEMATOCRIT 25.8 % (41.0-60); HEMOGLOBIN 8.4 gm/dL (12-16); LYMPHOCYTE ABSOLUTE 1.1 Th/cmm (1.5-3.0); MEAN CELL VOLUME 81.9 fl (81-100); MEAN CORPUSCULAR HEMOGLOBIN 26.7 pg (27.0-31.0); MEAN CORPUSCULAR HGB CONC 32.6 pg (28.0-36.0); MEAN PLATELET VOLUME 7.5 fl; MONOCYTE ABSOLUTE 0.6 Th/cmm (0.3-1.0); NEUTROPHILE ABSOLUTE 3.3 Th/cmm (1.8-8.0); PLATELET COUNT 214 Th/cmm (150-400); RED BLOOD COUNT 3.15 Mil/cmm (3.80-5.10); RED CELL DISTRIBUTION WIDTH 19.2 % (11.5-20.0); WHITE BLOOD COUNT 5.2 Th/cmm (4.8-10.8)
[2018-11-08 20:07] LABS: ALB/GLOB RATIO 1.4 (1.0-1.8); ALBUMIN 3.8 gm/dL (3.7-5.3); BILIRUBIN,TOTAL 0.5 mg/dL (0.3-1.0); CALCIUM SERUM 8.8 mg/dL (8.6-10.3); CARBON DIOXIDE 23.5 mEq/L (21.0-31.0); GFR AFRICAN-AMERICAN 8.4 ml/min (>90); POTASSIUM SERUM 4.5 mEq/L (3.5-5.1); TOTAL PROTEIN,SERUM 6.6 gm/dL (6.0-8.3)
[2018-11-08 20:08] LABS: INR 1.13 (0.5-1.4); PROTHROMBIN TIME (TEST) 11.6 SECONDS (9.5-11.5)
[2018-11-08 20:10] LABS: CREATININE - SERUM 6.4 mg/dL (0.6-1.2)
[2018-11-08 20:19] LABS: INR 1.13 (0.5-1.4); PROTHROMBIN TIME (TEST) 11.6 SECONDS (9.5-11.5)
[2018-11-08 21:38] LABS: ALLEN TEST Positive; PaCO2 43.2 mmHg (35.0-45.0); PaO2 87.3 mmHg (80.0-100.0); sO2c 96.2 % (92.0-100.0)
--- NOTE | 2018-11-09 09:09 | Diagnostic Imaging Report ---
Bilateral lower extremity DVT study HISTORY: Bilateral lower edema and elevated d-dimer COMPARISON: None Technique: Longitudinal and transverse sonographic images of the bilateral lower extremity veins were obtained with doppler analysis. FINDINGS: Exam was limited as patient was unable to tolerate the entire examination. As such the right mid and distal superficial femoral veins and left proximal superficial femoral vein was not able to be evaluated. Otherwise the remaining veins of the bilateral lower extremities are patent with no evidence of DVT formation. There is diffuse subcutaneous edema greatest along the thigh region. IMPRESSION: Limited exam as patient was not able to tolerate the entire exam. As such the right mid and distal and left proximal superficial femoral veins were not able to be evaluated. Otherwise no DVT was identified. If indicated repeat exam may be obtained. Diffuse bilateral subcutaneous edema greatest along the thigh regions.
== END 2018-11-09 00:45 ==
LOC: ER 18:56
DX: R07.89 Other chest pain (principal); R06.02 Shortness of breath; M79.10 Myalgia, unspecified site; N18.6 End stage renal disease; J44.9 Chronic obstructive pulmonary disease, unspecified; Z99.2 Dependence on renal dialysis; Z88.5 Allergy status to narcotic agent; Z88.6 Allergy status to analgesic agent
CPT/HCPCS: 99284; 96374; 82803; 36600; 93005; 93970; 84484; 83880; 36415; 85379; 83605; 85025; 85610 ×2; 85730; 82550; 80053; 80061; 87081; 87040 ×2; J2060